=== PATIENT | female | born 1955 | race Hispanic/Latino ===

== ENCOUNTER → 2019-10-25 | Outpatient (CLI) | payer OTHER ==
[~2019-10-25] MED LIST: BUPROPION PO; FOLIC ACID PO; HYDROCODON-ACE1 EA12 PO; IBUPROFEN400 MG PO; LEVOTHYROXINE200 MCG PO; METHOTREXATE2.5 MG PO; OXYBUTYNIN CHLO15 MG PO; PREDNISONE5 MG PO
--- NOTE | 2019-10-25 16:03 | Diagnostic Imaging Report ---
EXAMINATION: CHEST 2 VIEWS INDICATION: Ptosis COMPARISON: None FINDINGS: LINES/TUBES:None LUNGS:The lungs are well-inflated. No focal consolidation or pulmonary edema. PLEURA:No pleural effusion or pneumothorax. MEDIASTINUM:The cardiomediastinal silhouette appears normal in size and shape. BONES/SOFT TISSUES:No acute osseous injury. ABDOMEN:No free air under the diaphragm. Surgical clips overlie the upper abdomen. IMPRESSION: No focal pneumonia or pulmonary edema. Signed by: Yasmani Albrecht MD on 10/25/2019 3:59 PM
== END ==
LOC: RAD 13:51
PROVIDERS: ATTEND Internal Medicine
DX: H02.402 Unspecified ptosis of left eyelid (principal)
CPT/HCPCS: 71046

== ENCOUNTER 2019-11-04 00:15 | Inpatient (IN) | payer OTHER ==
[2019-11-04] VITALS (7 sets, daily range): BP systolic 114–128; BP diastolic 50–76
[~2019-11-04] VITALS: Ht 165.1 cm; Wt 132.1 kg
[2019-11-04] MEDS ORDERED: SODIUM CHLORIDE 0.9% 1000ML 1,000 ML IV STA (00:20)
[2019-11-04] MEDS ORDERED: MORPHINE SULFATE INJ 4 MG/ML INJ 1ML IV STA (00:20)
[2019-11-04] MEDS ORDERED: ONDANSETRON HCL INJ 2MG/ML 2ML 2 MG/ML VIAL IV STA (00:20)
--- NOTE | 2019-11-04 00:25 | Emergency Department Note ---
History of Present Illnes History of Present Illness History of Present Illness This is a 64 year old female with week long h/o of abd pain . Seen in triage , slightly dyspneic Historian: Patient Onset (how long ago): week(s) (1) Radiation: Reports abdomen Severity: moderate Duration (how long): day(s) (1) Timing of current episode: constant Progression: worsening Chronicity: new Relieving factors: none Exacerbating factors: none Associated symptoms: Reports nausea/vomiting Treatments prior to arrival: none Past Medical/Family History Physician Review I have reviewed the patient's past medical and family history. Any updates have been documented here. Past Medical History Recent Fever: No Clinical Suspicion of Infectio: No New/Unexplained Change in Ment: No Past Medical History: Hypertension Past Surgical History: None Social History Smoking Cessation: Never Smoker Alcohol Use: None Any Illegal Drug Use: No Review of Systems Review of Systems Constitutional: Reports no symptoms EENTM: Reports no symptoms Cardiovascular: Reports no symptoms Respiratory: Reports dyspnea Gastrointestinal: Reports abdominal pain, Reports nausea Genitourinary: Reports no symptoms Musculoskeletal: Reports no symptoms Integumentary: Reports no symptoms Neurological: Reports no symptoms Psychological: Reports no symptoms Endocrine: Reports no symptoms Hematological/Lymphatic: Reports no symptoms Physical Exam Related Data Allergies: Coded Allergies: infliximab (Verified Allergy, Unknown, HIVES, 01/07/17) sulfamethoxazole (Verified Allergy, Unknown, TONGUE SWELLED, 01/07/17) trimethoprim (Verified Allergy, Unknown, TONGUE SWELLED, 01/07/17) Triage Vital Signs Vital Signs Date Time Temp Pulse Resp B/P (MAP) Pulse Ox O2 Delivery O2 Flow Rate FiO2 11/04/19 00:53 98.1 81 13 134/83 100 Room Air Vital signs reviewed: Yes Physical Exam CONSTITUTIONAL Constitutional: Present morbidly obese, Present ill appearing HENT HENT: Present normocephalic, Present atraumatic, Present oropharynx thomas r/moist, Present nose normal HENT L/R: Present left ext ear normal, Present right ext ear normal EYES Eyes: Reports PERRL, Reports conjunctivae normal NECK Neck: Present ROM normal PULMONARY Pulmonary: Present effort normal, Present breath sounds normal CARDIOVASCULAR Cardiovascular: Present regular rhythm, Present heart sounds normal, Present capillary refill normal, Present normal rate GASTROINTESTINAL Abdominal: Present soft, Present tender (LLQ) GENITOURINARY Genitourinary: Present exam deferred SKIN Skin: Present warm, Present dry MUSCULOSKELETAL Musculoskeletal: Present ROM normal NEUROLOGICAL Neurological: Present alert, Present oriented x 3, Present no gross motor or sensory deficits PSYCHOLOGICAL Psychological: Present mood/affect normal, Present judgement normal Results Laboratory Laboratory Laboratory Tests Test 11/04/19 20:10 11/04/19 15:20 Creatine Kinase 49 IU/L (29-168) 58 IU/L (29-168) Creatine Kinase MB 1.20 ng/mL (0-5.0) 1.30 ng/mL (0-5.0) Troponin I 0.001 ng/mL (0-0.300) 0.016 ng/mL (0-0.300) Lab results reviewed: Yes Imaging Imaging results reviewed: Yes Impressions [place] [address] Patient Name: LAURENCE HOGUE MR #: [id number] : 1955 Age/Sex: 64/F Req #: [id number] Adm Physician: Ordered by: MAURICIO GOMEZ DO Report #: [id number] Location: ER Room/Bed: Procedure: [id number] CT/CT CHEST W Exam Date: 11/04/19 Exam Time: 0320 REPORT STATUS: Signed EXAMINATION: CT of the chest with contrast, PE protocol. TECHNIQUE: Spiral CT images of the chest were performed from the lung apices through the level of the adrenal glands after the IV administration of 150 cc of Isovue-370. Thin section reconstructions were obtained with special concentration on the pulmonary arteries. Coronal and sagittal reformatted images were also performed COMPARISON: <none> CLINICAL HISTORY:Shortness of breath for one week DISCUSSION: Lungs: Multiple filling defects involving segmental arteries of the right upper (superior and posterior segments), right middle (medial and lateral segments) and right lower lobe (lateral and posterior basal segments). Lungs are essentially clear. No consolidation, masses or nodules. Airways are clear, without endobronchial lesions. Pleura: <There is no evidence of pleural effusion or pneumothorax.> Heart and mediastinum: Thyroid is unremarkable. Heart size is normal. No pericardial effusion. Aorta is nonaneurysmal. Main pulmonary artery measures 2.8 cm, normal. Lymph nodes: No mediastinal, hilar or axillary adenopathy. Abdomen: Please see CT abdomen and pelvis performed same date for further detail. Bones and soft tissues: No aggressive lytic or suspicious focal sclerotic lesion. Soft tissues are grossly unremarkable. IMPRESSION: 1. Multiple pulmonary emboli involving segmental arteries of the right upper, right middle and right lower lobe. 2. Lungs are essentially clear, without consolidation, masses or nodules. Signed by: Dr. Rome Angel M.D. on 11/04/2019 4:56 AM Dictated By: ROME ANGEL MD 5 Transcribed By: SEAN on 11/04/19455 COPY TO: MAURICIO GOMEZ DO~ [place] [address] Patient Name: LAURENCE HOGUE MR #: [id number] : 1955 Age/Sex: 64/F Req #: [id number] Adm Physician: Ordered by: MAURICIO GOMEZ DO Report #: [id number] Location: ER Room/Bed: Procedure: [id number] CT/CT ABDOMEN/PELVIS W Exam Date: 11/04/19 Exam Time: 0320 REPORT STATUS: Signed EXAMINATION: CT of the abdomen and pelvis with contrast. TECHNIQUE: Spiral CT images of the abdomen and pelvis were performed from the lung bases to the lesser trochanters after the intravenous administration of 100 cc of Isovue 370 and the oral administration of water. Coronal and sagittal reformatted images were obtained. COMPARISON: None. CLINICAL HISTORY:Left lower quadrant pain for one day DISCUSSION: ABDOMEN/PELVIS: LOWER THORAX:Please see CT chest performed same day for further details HEPATOBILIARY: No focal hepatic lesions No intra or extrahepatic biliary ductal dilation. GALLBLADDER: No radio-opaque stones or sludge. No wall thickening. 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 Fatty replacement of the pancreas. ADRENALS: No adrenal nodules. KIDNEYS/URETERS: Symmetrical renal enhancement. No renal or ureteral calculi. No hydronephrosis, hydroureter or evidence of obstruction. Well-circumscribed fluid density lesions in the left renal sinus likely represent peripelvic cysts. Moderate bilateral perinephric stranding and mild bilateral perinephric fluid. No definite cortical striations are identified. No solid or cystic lesions. PELVIC ORGANS/BLADDER: Bladder and uterus are unremarkable. No adnexal masses. PERITONEUM/RETROPERITONEUM: No free air or fluid. LYMPH NODES: No intra-abdominal, retroperitoneal, pelvic or inguinal lymphadenopathy. VESSELS: The celiac trunk,superior and inferior mesenteric and bilateral renal arteries are patent The portal, superior mesenteric and splenic veins are patent. GI TRACT: Small hiatal hernia. No bowel dilation or evidence of obstruction. No pericolonic inflammatory changes. BONES AND SOFT TISSUE: No aggressive lytic or suspicious sclerotic lesions. Multilevel degenerated disks in the lower thoracic and to a lesser degree upper lumbar spine. Soft tissues are grossly unremarkable. IMPRESSION: 1. Moderate bilateral perinephric stranding and mild bilateral perinephric fluid. Although no definite cortical striations are identified to suggest pyelonephritis, correlate with urinalysis for diarrhea and possibility of ascending infection. Signed by: Dr. Rome Angel M.D. on 11/04/2019 4:45 AM Dictated By: ROME ANGEL MD 4 Transcribed By: SEAN on 11/04/19444 COPY TO: MAURICIO GOMEZ DO~ Critical Care Time Total Critical Care Time (min): 31 Critcal care time spent by me: discussion w consultants, discussion w primary provider, examination of patient, order/perform tx or interventions, order/review laboratory studies, order/review radiographic studies, pulse oximetry, re-evaluation of patient condition Assessment & Plan Medical Decision Making MDM 64 yom with presents with abdominal pain. CBC, CMP, UA and CTS ordered to r/o appendicitis, COVID-19 infection diverticulitis, UTI, kidney stone, perforated viscus, obstruction, ischemia, and biliary pathology. Dyspnea concerning for PE which was confirmed by CTA of chest. Patient to admitted to the service of Dr Sarwat Thrasher Assessment & Plan Final Impression: (1) Pulmonary embolism (2) Abdominal pain Depart Disposition: ADMITTED Home Meds Reported Medications Lisinopril (LISINOPRIL) 10 Mg Tablet, 10 MG PO BID, #60 TAB 11/04/19 Meloxicam (MOBIC) 15 Mg Tablet, 15 MG PO DAILY, TAB 11/04/19 Duloxetine Hcl (CYMBALTA) 30 Mg Capsule.dr, 60 MG PO DAILY, #30 CAP 11/04/19 Gabapentin (GABAPENTIN) 300 Mg Capsule, 600 MG PO Q8H, #60 CAP 11/04/19 Tizanidine Hcl (TIZANIDINE HCL) 4 Mg Capsule, 4 MG PO HS 11/04/19 Folic Acid (FOLIC ACID) 0.8 Mg Tablet, 1 MG PO DAILY 11/04/19 Ibuprofen (IBUPROFEN) 400 Mg Tablet, 800 MG PO DAILY PRN for PAIN, TAB 01/07/17 Methotrexate Sodium (METHOTREXATE) 2.5 Mg Tablet, 20 MG PO WKLY, #30 TAB WEEKLY ON Sundays01/07/17 Levothyroxine Sodium (LEVOTHYROXINE SODIUM) 200 Mcg Tablet, 200 MCG PO DAILY@0600 01/07/17 Oxybutynin Chloride (OXYBUTYNIN CHLORIDE ER) 15 Mg Tab.er.24, 15 MG PO DAILY 01/07/17 Discontinued Reported Medications [Bupropion] No Conflict Check, PO DAILY PATIENT STATES UNKNOWN DOSAGE 01/07/17 Prednisone (PREDNISONE) 5 Mg Tablet, 5 MG PO DAILY 01/07/17 Hydrocodone Bit/Acetaminophen (HYDROCODON-ACETAMINOPH 7.5-325) 1 Each Tablet, PO PRN 01/07/17 [Folic Acid] No Conflict Check, 1 MG PO DAILY 01/07/17 MAURICIO GOMEZ DO Nov 04, 2019 00:25
[2019-11-04 02:20] LABS: BASOPHILS # (AUTO) 0.1 (0.0-0.1); BASOPHILS % 0.5 % (0.0-1.0); EOSINOPHILS # (AUTO) 0.6 (0.0-0.4); EOSINOPHILS % 3.3 % (0.0-6.0); HEMATOCRIT 41.8 % (34.2-44.1); HEMOGLOBIN 13.3 g/dL (12.0-16.0); LYMPHOCYTES # (AUTO) 2.4 (1.0-3.2); LYMPHOCYTES % 14.7 % (18.0-39.1); MEAN CORPUSCULAR HEMOGLOBIN 28.4 pg (28-32); MEAN CORPUSCULAR HGB CONC 31.8 g/dL (31-35); MEAN CORPUSCULAR VOLUME 89.1 fL (81-99); MONOCYTES # (AUTO) 1.9 (0.2-0.8); MONOCYTES % 11.2 % (4.4-11.3); NEUTROPHILS # (AUTO) 11.5 (2.1-6.9); NEUTROPHILS % 69.7 % (38.7-80.0); PLATELET COUNT 415 x10e3/uL (140-360); RED BLOOD COUNT 4.69 x10e6/uL (3.6-5.1); RED CELL DISTRIBUTION WIDTH 15.8 % (11.7-14.4)
[2019-11-04 02:28] LABS: CLARITY,URINE CLEAR (CLEAR); COLOR,URINE YELLOW (YELLOW)
[2019-11-04 02:29] LABS: BILIRUBIN,URINE NEGATIVE (NEGATIVE); KETONES,URINE NEGATIVE (NEGATIVE); LEUKOCYTE ESTERASE ,URINE NEGATIVE (NEGATIVE); NITRITE,URINE NEGATIVE (NEGATIVE); PROTEIN,URINE DIPSTICK 1+ (NEGATIVE); URINE UROBILINOGEN 0.2 mg/dL (0.2 - 1)
[2019-11-04 02:39] LABS: BACTERIA,URINE FEW /HPF
[2019-11-04 02:40] LABS: EPITHELIAL CELLS,URINE FEW /LPF
[2019-11-04 02:41] LABS: ALBUMIN 3.4 g/dL (3.5-5.0); ALBUMIN/GLOBULIN RATIO 0.8 (0.8-2.0); ANION GAP 15.1 mmol/L (8-16); CALCIUM 9.2 mg/dL (8.4-10.2); CREATININE, SERUM 1.18 mg/dL (0.57-1.11); POTASSIUM 4.1 mmol/L (3.5-5.1)
[2019-11-04] MEDS ORDERED: SODIUM CHLORIDE 0.9% 1000ML 1,000 ML ONE (03:21)
[2019-11-04] MEDS ORDERED: SODIUM CHLORIDE 0.9% 50ML 50 ML ONE ×2 (03:22→05:03)
[2019-11-04] MEDS ORDERED: IOPAMIDOL 370 MG/ML 200 ML INFUS..BTL INJ ONE ×2 (03:22→05:03)
--- NOTE | 2019-11-04 04:48 | Diagnostic Imaging Report ---
EXAMINATION: CT of the abdomen and pelvis with contrast. TECHNIQUE: Spiral CT images of the abdomen and pelvis were performed from the lung bases to the lesser trochanters after the intravenous administration of 100 cc of Isovue 370 and the oral administration of water. Coronal and sagittal reformatted images were obtained. COMPARISON: None. CLINICAL HISTORY:Left lower quadrant pain for one day DISCUSSION: ABDOMEN/PELVIS: LOWER THORAX:Please see CT chest performed same day for further details HEPATOBILIARY: No focal hepatic lesions No intra or extrahepatic biliary ductal dilation. GALLBLADDER: No radio-opaque stones or sludge. No wall thickening. 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 Fatty replacement of the pancreas. ADRENALS: No adrenal nodules. KIDNEYS/URETERS: Symmetrical renal enhancement. No renal or ureteral calculi. No hydronephrosis, hydroureter or evidence of obstruction. Well-circumscribed fluid density lesions in the left renal sinus likely represent peripelvic cysts. Moderate bilateral perinephric stranding and mild bilateral perinephric fluid. No definite cortical striations are identified. No solid or cystic lesions. PELVIC ORGANS/BLADDER: Bladder and uterus are unremarkable. No adnexal masses. PERITONEUM/RETROPERITONEUM: No free air or fluid. LYMPH NODES: No intra-abdominal, retroperitoneal, pelvic or inguinal lymphadenopathy. VESSELS: The celiac trunk,superior and inferior mesenteric and bilateral renal arteries are patent The portal, superior mesenteric and splenic veins are patent. GI TRACT: Small hiatal hernia. No bowel dilation or evidence of obstruction. No pericolonic inflammatory changes. BONES AND SOFT TISSUE: No aggressive lytic or suspicious sclerotic lesions. Multilevel degenerated disks in the lower thoracic and to a lesser degree upper lumbar spine. Soft tissues are grossly unremarkable. IMPRESSION: 1. Moderate bilateral perinephric stranding and mild bilateral perinephric fluid. Although no definite cortical striations are identified to suggest pyelonephritis, correlate with urinalysis for diarrhea and possibility of ascending infection. Signed by: Dr. Mathew Angel M.D. on 11/04/2019 4:45 AM
[2019-11-04] MEDS ORDERED: ENOXAPARIN SODIUM INJ 100 MG/ML SYR SC STA (04:52)
--- NOTE | 2019-11-04 04:59 | Diagnostic Imaging Report ---
EXAMINATION: CT of the chest with contrast, PE protocol. TECHNIQUE: Spiral CT images of the chest were performed from the lung apices through the level of the adrenal glands after the IV administration of 150 cc of Isovue-370. Thin section reconstructions were obtained with special concentration on the pulmonary arteries. Coronal and sagittal reformatted images were also performed COMPARISON: <none> CLINICAL HISTORY:Shortness of breath for one week DISCUSSION: Lungs: Multiple filling defects involving segmental arteries of the right upper (superior and posterior segments), right middle (medial and lateral segments) and right lower lobe (lateral and posterior basal segments). Lungs are essentially clear. No consolidation, masses or nodules. Airways are clear, without endobronchial lesions. Pleura: <There is no evidence of pleural effusion or pneumothorax.> Heart and mediastinum: Thyroid is unremarkable. Heart size is normal. No pericardial effusion. Aorta is nonaneurysmal. Main pulmonary artery measures 2.8 cm, normal. Lymph nodes: No mediastinal, hilar or axillary adenopathy. Abdomen: Please see CT abdomen and pelvis performed same date for further detail. Bones and soft tissues: No aggressive lytic or suspicious focal sclerotic lesion. Soft tissues are grossly unremarkable. IMPRESSION: 1. Multiple pulmonary emboli involving segmental arteries of the right upper, right middle and right lower lobe. 2. Lungs are essentially clear, without consolidation, masses or nodules. Signed by: Dr. Mathew Angel M.D. on 11/04/2019 4:56 AM
[2019-11-04] MEDS ORDERED: MORPHINE SULFATE INJ 4 MG/ML INJ 1ML IV PRN (05:00)
[2019-11-04] MEDS ORDERED: ONDANSETRON HCL INJ 2MG/ML 2ML 2 MG/ML VIAL IV PRN (05:00)
[2019-11-04] MEDS ORDERED: ASPIRIN 81 MG CHEW TAB PO ONE (05:00)
--- NOTE | 2019-11-04 06:36 | NUR ---
Received patient from ER. Patient received and offered a bed, patient in no acute distress, patient is currently stable, will continue to monitor.
[2019-11-04 06:50] LABS: CREATINE KINASE MB 1.4 ng/mL (0-5.0)
[2019-11-04] MEDS ORDERED: GABAPENTIN300 MG PO (07:23)
[2019-11-04] MEDS ORDERED: MOBIC15 MG PO (07:23)
[2019-11-04] MEDS ORDERED: FOLIC ACID0.8 MG PO (07:23)
[2019-11-04] MEDS ORDERED: CYMBALTA30 MG PO (07:23)
[2019-11-04] MEDS ORDERED: TIZANIDINE HCL4 M1 PO (07:23)
--- NOTE | 2019-11-04 07:30 | NUR ---
ADMITTED PATIENT FROM ER. SHE IS IN STABLE CONDITION. ORIENTED TO ROOM AND POLICIES. CALL LIGHT WITHIN REACH. BED IN THE LOWEST POSITION.
[2019-11-04] MEDS ORDERED: LISINOPRIL10 MG PO (07:34)
--- NOTE | 2019-11-04 07:49 | NUR ---
DR. Nirali SPRINGER NOTIFIED OF CONSULT AT THIS TIME.
[2019-11-04] MEDS ORDERED: SODIUM CHLORIDE 0.9% 250ML 250 ML ONE (10:36)
[2019-11-04] MEDS ORDERED: ACETAMINOPHEN 325 MG TAB PO PRN (10:45)
[2019-11-04] MEDS: DEXAMETHASONE SOD PHOS INJ 4 MG/ML VIAL IV SCH (11:24)
[2019-11-04] MEDS: FOLIC ACID 1 MG TAB PO SCH (11:24)
[2019-11-04] MEDS: AZITHROMYCIN 500MG/NS 250 ML 250 ML IV SCH (11:24)
--- NOTE | 2019-11-04 11:25 | NUR ---
MOVED PATIENT TO ROOM 200 (NEGATIVE PRESSURE ROOM) PER MD.
--- NOTE | 2019-11-04 11:38 | History and Physical ---
CHIEF COMPLAINT: Shortness of breath. HISTORY OF PRESENT ILLNESS: This is a 64-year-old woman, who presents to [facility] Emergency Room with a 4 to 5 day history of worsening shortness of breath, particularly when taking a deep breath. The patient denies any chest pain, just slight cough. She complains of chills. Denies any fever. She has slight headache. She also has body aches. The patient denies any diarrhea. The patient states she can still smell and taste food. The patient states she has not been exposed to anyone who is known to be COVID-19 positive. The patient blood work done recently at her primary care physician's office and her B-type natriuretic peptide level was normal at 39. She was found to have an elevated TSH level of 7.35. Her hemoglobin A1c was 5.8%. In [facility] Emergency Room, she was found have BUN and creatinine of 15 and 1.18 respectively. The patient's white blood cell count 16,500 with 69% segmenters. Hemoglobin 13.3 g/dL, platelet count 415,000. Urinalysis revealed 6-10 red blood cells per high-power field and 6-10 white blood cells per high-power field with few bacteria. The patient underwent a CT of the abdomen and pelvis in the emergency room that revealed moderate bilateral perinephric stranding, but no definite cortical striations were appreciated to suggest pyelonephritis. However, the patient underwent a CT of the chest in the emergency room that did reveal multiple pulmonary emboli involving the segmental arteries of the right upper, right middle and right lower lobes. The lungs however were clear of consolidations, masses or nodules. The patient was admitted for further evaluation and treatment. REVIEW OF SYSTEMS: GENERAL: Weight is stable. She has had chills in past five days. No fever. HEENT: Slight headaches, but no visual changes. Denies any sore throat. RESPIRATORY: Worsening shortness of breath over the last five days. She currently states that she has difficulty taking deep breath. The patient denies any chest pain though. She has slight nonproductive cough. GI: No nausea, vomiting, diarrhea or constipation. : No UTI symptoms. NEUROMUSCULAR: No limb weakness or numbness, but she does complain of body aches. ALLERGIES: 1. REMICADE. 2. SULFAMETHOXAZOLE. 3. BACTRIM. PAST MEDICAL HISTORY: 1. Extreme obesity, BMI 48. 2. Psoriatic arthritis. 3. Prediabetes. 4. GERD. 5. Hypothyroidism. 6. Overactive bladder. 7. Chronic right pedal edema. 8. Hypertensive heart disease. SOCIAL HISTORY: This woman is , lives with adult daughter. 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 No history of tobacco or alcohol use. SURGICAL HISTORY: 1. Lumbar epidural steroid injection recently. 2. 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 FAMILY HISTORY: Numerous family members have hypertension. Father had colon cancer. No history of breast cancer. HOME MEDICATIONS: 1. Furosemide 20 mg daily. 2. Omeprazole 40 mg daily. 3. Meloxicam 15 mg once a day. 4. Duloxetine 60 mg daily. 5. Gabapentin 300 mg t.i.d. 6. Tizanidine 4 mg q.h.s. 7. Levothyroxine 200 mcg every other day. 8. Diclofenac 1% gel applied to affected joints four times a day as needed. 9. Methotrexate 15 mg once a week. 10. Taltz 80 mg injectable every four weeks. 11. Myrbetriq 50 mg daily. 12. Folic acid 1 mg daily. 13. Lisinopril 10 mg daily. PHYSICAL EXAMINATION: GENERAL: She is awake, alert, fully oriented. She appears to be slightly dyspneic, but in no acute respiratory distress. She is fully oriented. Very pleasant, cooperative on exam. VITAL SIGNS: Height 5 feet 5 inches, weight 290 pounds. BMI is 48. Blood pressure is 124/74, pulse 74, respiratory rate 18, oxygen saturation 100% on room air, temperature 97.4. INTEGUMENT: Skin is warm and dry. No pallor, jaundice or diaphoresis. HEENT: Anterior sclerae. Moist mucous membranes. NECK: Supple. CARDIOVASCULAR: Distant heart sounds. Regular rate and rhythm. LUNGS: No rales. No rhonchi or wheezes. ABDOMEN: Obese, benign. EXTREMITIES: No edema or deformity. NEUROLOGIC: Intact. DIAGNOSES: 1. Right-sided pulmonary emboli. 2. COVID-19 infection, likely. 3. Extreme obesity, BMI 48. 4. Psoriatic arthritis. 5. Stage 2 chronic kidney disease. PLAN: 1. We will check COVID-19 infection by PCR testing (nasal swabbing). 2. Isolate the patient. 3. We will start oral apixaban. 4. Stop injectable enoxaparin. 5. Consult Pulmonary. 6. We will hold meloxicam and ibuprofen since patient has stage 2 chronic kidney disease and is now on anticoagulation. 7. We will start intravenous dexamethasone for shortness of breath and likely COVID-19 infection. 8. We will start intravenous azithromycin since patient most likely has COVID-19 infection. 9. We will resume home medications. I spent 45 minutes in the care of the patient. MD REJI Wynn/RENNY /[id number] MTDD
--- NOTE | 2019-11-04 12:27 | NUR ---
NOTIFIED DR. WHITMORE OF PATIENT GOING IN AND OUT OF A SECOND DEGREE HEART BLOCK FOR 4 BEATS AND THEN BACK TO SINUS RHYTHM PER TECHNOLOGY PROGRAM MANAGER. NO NEW ORDERS AT THIS TIME.
[2019-11-04] MEDS: GABAPENTIN 300 MG CAP PO SCH ×2 (13:04→21:21)
[2019-11-04] MEDS: ALBUTEROL SULF 0.083% NEB SOLN 3 ML NEB NEB SCH ×2 (14:22→19:35)
[2019-11-04 16:03] LABS: CREATINE KINASE MB 1.3 ng/mL (0-5.0)
[2019-11-04] MEDS: LISINOPRIL 10 MG TAB PO SCH (16:04)
[2019-11-04] MEDS: APIXABAN 5 MG TABLET PO SCH (16:04)
--- NOTE | 2019-11-04 17:01 | Consultation ---
DATE OF CONSULTATION: Pulmonary Critical Care Consultation CHIEF COMPLAINT: Dyspnea. HISTORY OF PRESENT ILLNESS: The patient is a 64-year-old woman. She has a history of psoriatic arthritis. She also has chronic back pain. She noticed swelling in her right leg intermittently for the past 1 to 2 months. She also went for an epidural injection the beginning of October. She noticed difficulty breathing about 7 to 10 days ago. She denies any cough or fevers. She has some pain with inspiration. She came to the hospital. Her CT scan showed multiple pulmonary emboli. She was started on anticoagulation and has noticed some improvement, although she still has some pain with respiration. PAST MEDICAL HISTORY: 1. Psoriatic arthritis. 2. Chronic back pain. 3. Hypertension. 4. Gastroesophageal reflux. ALLERGIES: THE PATIENT REPORTS BEING ALLERGIC TO BACTRIM. PAST SURGICAL HISTORY: 1. Status post splenectomy. 2. Status post epidural steroid injectio. SOCIAL HISTORY: The patient has never been a smoker. She is not a drinker. FAMILY HISTORY: There is a history of hypertension. There is a history of colon cancer. REVIEW OF SYSTEMS: The patient denies any fever. She has no headache. She has not had any neck pain. She denies any is glandular swelling. She is not having any anterior chest pain, although she does have pain with inspiration. She notes some dyspnea. She has no cough. She has no abdominal pain. She has no nausea or vomiting. She does have intermittent leg pain and swelling in the right leg. PHYSICAL EXAMINATION: VITAL SIGNS: The patient is afebrile. The blood pressure is 114/50 and the pulse rate is 81. Saturation is 96%. HEENT: Shows no facial swelling or erythema. CARDIAC: Reveals regular rate and rhythm with normal S1 and S2. LUNGS: Auscultation of lungs reveals clear breath sounds bilaterally. There is no wheezing. ABDOMEN: Soft and nontender. There is no rebound or guarding. EXTREMITIES: Shows no leg edema or calf tenderness. There is no cyanosis or clubbing. SKIN: Shows no rashes. NEUROLOGICAL: Shows no focal abnormalities. LABORATORY DATA: White blood cell count is 16.6, hemoglobin is 13.3, and the platelet count is 415. BUN to creatinine ratio is 15 to 1.18. Other electrolytes are within normal limits. Albumin is 3.4. RADIOGRAPHIC DATA: CT scan of the chest shows multiple pulmonary emboli involving segmental arteries in the right side predominantly. CT scan of the abdomen and pelvis shows moderate bilateral perinephric stranding. Echocardiogram shows no right ventricular abnormalities. There is a preserved ejection fraction and some concentric left ventricular hypertrophy. IMPRESSION: 1. Pulmonary emboli, possibly related to recent procedure (epidural steroid injection). 2. Acute kidney injury. 3. Psoriatic arthritis. 4. Hypertension. 5. Extreme obesity. PLAN: 1. The patient will require Eliquis for a minimum of 3 to 6 months. She should be on 10 mg twice a day for the first week and can then transition to 5 mg twice a day. 2. Await COVID testing, because the patient's with COVID are hypocoagulable and would be at risk for pulmonary embolism. 3. Follow up as an outpatient in 1 to 2 weeks to make sure the patient has had symptomatic improvement. 4. Repeat D-dimer at the end of treatment with anticoagulation. If the D-dimer remains elevated, then a workup for hypercoagulability would be indicated. Melvin Cespedes MD [facility] /[id number]
--- NOTE | 2019-11-04 18:45 | NUR ---
Received patient from day nurse, patient is stable, fall and safety precautions maintained at this time: bed in lowest position and locked, needed items beside bed and call piedra placed close to patient, patient instructed to use it to call nurses for any assistance needed, patient verbalized understanding. Patient is currently stable will continue to monitor.
--- NOTE | 2019-11-04 18:58 | NUR ---
BEDSIDE SHIFT REPORT GIVEN TO ONCOMING NURSE. PATIENT IS RESTING IN BED. NO ACUTE DISTRESS NOTED AT THIS TIME. CALL LIGHT WITHIN REACH. BED IN THE LOWEST POSITION.
[2019-11-04 20:40] LABS: CREATINE KINASE MB 1.2 ng/mL (0-5.0)
[2019-11-04] MEDS ORDERED: TIZANIDINE HCL 4 MG TAB PO SCH (21:00)
[2019-11-05] MEDS: ALBUTEROL SULF 0.083% NEB SOLN 3 ML NEB NEB SCH ×3 (00:55→14:02)
[2019-11-05 01:06] VITALS: BP_SYST 122; BP_SYST 128; BP_DIAS 72
[2019-11-05 04:00] VITALS: BP 134/86
[2019-11-05] MEDS ORDERED: LEVOTHYROXINE SODIUM 100 MCG TAB PO SCH (06:00)
[2019-11-05] MEDS: GABAPENTIN 300 MG CAP PO SCH ×2 (06:21→13:44)
[2019-11-05 06:31] LABS: BASOPHILS % 0.1 % (0.0-1.0); HEMATOCRIT 35.7 % (34.2-44.1); HEMOGLOBIN 11.3 g/dL (12.0-16.0); LYMPHOCYTES # (AUTO) 2.4 (1.0-3.2); LYMPHOCYTES % 17.8 % (18.0-39.1); MEAN CORPUSCULAR HEMOGLOBIN 28.7 pg (28-32); MEAN CORPUSCULAR HGB CONC 31.7 g/dL (31-35); MEAN CORPUSCULAR VOLUME 90.6 fL (81-99); MONOCYTES # (AUTO) 0.9 (0.2-0.8); NEUTROPHILS # (AUTO) 10.1 (2.1-6.9); NEUTROPHILS % 74.7 % (38.7-80.0); PLATELET COUNT 339 x10e3/uL (140-360); RED BLOOD COUNT 3.94 x10e6/uL (3.6-5.1); RED CELL DISTRIBUTION WIDTH 15.9 % (11.7-14.4)
--- NOTE | 2019-11-05 06:40 | NUR ---
RECEIVED BEDSIDE SHIFT REPORT FROM OFF GOING NURSE. PATIENT IS RESTING IN BED. NO ACUTE DISTRESS NOTED. CALL LIGHT WITHIN REACH. BED IN THE LOWEST POSITION.
[2019-11-05 06:57] LABS: ALBUMIN 2.8 g/dL (3.5-5.0); ALBUMIN/GLOBULIN RATIO 0.8 (0.8-2.0); ANION GAP 9.2 mmol/L (8-16); CALCIUM 8.3 mg/dL (8.4-10.2); CREATININE, SERUM 1.81 mg/dL (0.57-1.11); POTASSIUM 4.2 mmol/L (3.5-5.1)
--- NOTE | 2019-11-05 07:00 | NUR ---
patient endorsed to next shift for continuity of care.
[2019-11-05] MEDS ORDERED: SODIUM CHLORIDE 0.9% 1000ML 1,000 ML IV SCH (07:45)
[2019-11-05 08:31] VITALS: BP 109/54
[2019-11-05 08:51] VITALS: BP 109/54
--- NOTE | 2019-11-05 08:57 | Diagnostic Imaging Report ---
EXAM: CHEST SINGLE (PORTABLE) DATE: 11/05/2019 8:32 AM INDICATION: Possible pneumonia COMPARISON: CT chest with contrast from 11/04/2019 FINDINGS: The trachea is midline. The lungs are symmetrically expanded without evidence for large focal consolidation, pneumothorax, or significant pleural effusion. The cardiomediastinal is magnified by technique but otherwise unremarkable. The pulmonary vasculature is not engorged. No acute osseous abnormality is identified. The surrounding soft tissues are unremarkable. IMPRESSION: No acute cardiopulmonary process identified. Signed by: Dr. Danyel Noel MD on 11/05/2019 8:53 AM
[2019-11-05] MEDS ORDERED: DULOXETINE HCL 30 MG DELAYED RELEASE PO SCH (09:00)
[2019-11-05] MEDS ORDERED: OXYBUTYNIN CHLORIDE XL 5 MG TAB PO SCH (09:00)
[2019-11-05] MEDS: APIXABAN 5 MG TABLET PO SCH (09:05)
[2019-11-05] MEDS: FOLIC ACID 1 MG TAB PO SCH (09:05)
[2019-11-05] MEDS: LISINOPRIL 10 MG TAB PO SCH (09:05)
[2019-11-05] MEDS: DEXAMETHASONE SOD PHOS INJ 4 MG/ML VIAL IV SCH (09:30)
--- NOTE | 2019-11-05 10:14 | Discharge Summary ---
ADMITTING DIAGNOSES: 1. Right-sided pulmonary emboli. 2. Coronavirus disease-19, viral infection, likely. 3. Extreme obesity, BMI 48. 4. Psoriatic arthritis. 5. Stage 2 chronic kidney disease. DISCHARGE DIAGNOSES: 1. Right-sided pulmonary emboli, stable. 2. Coronavirus disease-19, viral infection, likely. 3. Extreme obesity, BMI 48. 4. Psoriatic arthritis. 5. Acute on chronic renal insufficiency secondary to intravenous contrast, stable. HOSPITAL COURSE: This is a 64-year-old woman, who was initially admitted to [facility] with diagnosis of right-sided pulmonary emboli as well as likely coronavirus disease-19 viral infection. However, on discharge the patient's COVID-19 test by PCR was still pending on day that she was discharged. The patient remained hemodynamically stable during hospitalization. The patient never became hypoxic. In fact, she never had shortness of breath. Her only real complaint was difficulty in taking a deep breath and right-sided pleuritic chest discomfort. On admission, the patient underwent a CT of the abdomen and pelvis, which revealed perinephric stranding, but no clear evidence of pyelonephritis. However, patient underwent a CT of the chest with intravenous contrast during this hospitalization that revealed multiple pulmonary emboli involving segmental arteries of the right upper, right middle and right lower lobes. The patient's brief hospitalization was unremarkable. She was seen by strip cutting machine operator, Dr. Melvin Cespedes. The patient was initially started on enoxaparin subcutaneously, but later was transitioned to oral apixaban, which she tolerated quite well. The patient was started on apixaban from Eliquis 10 mg twice a day. The following medications were discontinued during this hospitalization because of her acute on chronic renal insufficiency, namely ibuprofen, meloxicam, and lisinopril. Prior to discharge she was administered one liter of saline intravenously to help correct the likely intravenous contrast induced acute renal insufficiency. Basic metabolic profile was drawn prior to discharge. CONDITION ON DISCHARGE: Stable. DISCHARGE MEDICATIONS: 1. Apixaban from Eliquis 10 mg twice a day for seven more days, then 5 mg b.i.d. thereafter for at least three more months. 2. Oxybutynin XL 15 mg daily. 3. Folic acid 1 mg daily. 4. Duloxetine 60 mg daily. 5. Levothyroxine 200 mcg daily. 6. Gabapentin 600 mg t.i.d. 7. Tizanidine 4 mg at bedtime p.r.n. muscle spasms. 8. Azithromycin 500 mg daily for five days. 9. Dexamethasone 4 mg p.o. b.i.d. for five days (only if she is COVID-19 positive). 10. Zinc sulfate 220 mg b.i.d. for 10 days. 11. Acetaminophen 650 mg every 6 hours p.r.n. temperature 99.5 or higher, or pain. 12. Methotrexate 20 mg once a week on Sundays. The patient was instructed to follow up with her primary care physician, namely myself, Dr. Orion Thrasher within the next 7-10 days. I will personally call the patient with results of the COVID-19 viral tests once available. MD CHITO WynnO/RAMIROL /[id number] cc: Melvin Cespedes MD MTDD
[2019-11-05] MEDS: AZITHROMYCIN 500MG/NS 250 ML 250 ML IV SCH (10:38)
[2019-11-05 11:30] VITALS: BP 112/62
[2019-11-05] MEDS ORDERED: ONDANSETRON HCL 4 MG ORAL DISINTEGRATING TAB PO PRN (11:30)
--- NOTE | 2019-11-05 15:58 | NUR ---
RECEIVED DISCHARGE ORDER FROM DR. WHITMORE. PATIENT IS IN STABLE CONDITION. IV LINE TO LEFT ANTECUBITAL DISCONTINUED WITH TIP INTACT, PRESSURE DRESSING APPLIED TO SITE. DISCHARGE TEACHING PROVIDED, PATIENT VERBALIZED UNDERSTANDING, NO QUESTIONS AT THE TIME OF DISCHARGE. DC PAPERWORK WITH PRESCRIPTIONS AND ALL PERSONAL ITEMS ON HAND. PATIENT ACCOMPANIED TO PRIVATE AUTO VIA WHEELCHAIR BY STAFF.
[2019-11-05 16:14] LABS: ANION GAP 12.3 mmol/L (8-16); CALCIUM 8.8 mg/dL (8.4-10.2); CREATININE, SERUM 1.3 mg/dL (0.57-1.11); POTASSIUM 4.3 mmol/L (3.5-5.1)
[2019-11-07] MEDS ORDERED: METHOTREXATE SOD 2.5 MG TAB PO SCH (09:00)
== END 2019-11-05 15:58 | disposition home or self-care (01) | DRG 176 ==
LOC: ER 00:30 → ERHOLD 04:55 → MED/SURG2 06:33
PROVIDERS: ADMIT Internal Medicine; ATTEND Internal Medicine
DX: I26.99 Other pulmonary embolism without acute cor pulmonale (principal); N17.9 Acute kidney failure, unspecified; Z68.42 Body mass index [BMI] 45.0-49.9, adult; R10.9 Unspecified abdominal pain; Z88.8 Allergy status to other drugs, medicaments and biological substances; E66.01 Morbid (severe) obesity due to excess calories; L40.50 Arthropathic psoriasis, unspecified; I12.9 Hypertensive chronic kidney disease with stage 1 through stage 4 chronic kidney disease, or unspecified chronic kidney disease; N18.2 Chronic kidney disease, stage 2 (mild); R73.03 Prediabetes; E03.9 Hypothyroidism, unspecified; Z82.49 Family history of ischemic heart disease and other diseases of the circulatory system; Z80.0 Family history of malignant neoplasm of digestive organs; Z11.59 Encounter for screening for other viral diseases
CPT/HCPCS: 36415; 71045; 71260; 74177; 80048; 80053; 81001; 82550; 82553; 83690; 84484; 85025; 93306; 94640; 99284; J0456; J1100; J1650; J7030; J7050; Q9967; U0002

== ENCOUNTER 2019-11-20 17:39 | Emergency (ER) | payer OTHER ==
[~2019-11-20] VITALS: Ht 165.1 cm; Wt 145.1 kg
[~2019-11-20 17:39] MED LIST changes: +CYMBALTA30 MG PO; +FOLIC ACID0.8 MG PO; +GABAPENTIN300 MG PO; +LISINOPRIL10 MG PO; +MOBIC15 MG PO; +TIZANIDINE HCL4 M1 PO
[2019-11-20] MEDS ORDERED: SODIUM CHLORIDE 0.9% 1000ML 1,000 ML IV STA (18:01)
--- OUTSIDE RECORDS SUMMARY | 2019-11-20 18:10 | XMS REPORT | Clinical Summary ---
Author Author [facility] Address Unknown Phone Unavailable Care Team Providers Care Cinder Crusher Operator Name Role Phone Pcp, No PCP Unavailable Allergies Comments Active Allergy Reactions Severity Noted Date Sulfamethoxazole-Trimetho Anaphylaxis High 07/2017 prim Infliximab Hives 09/22/2017 Medications End Date Status Medication Sig Dispensed Refills Start Date Active buPROPion (WELLBUTRIN) Take 100 mg 0 100 MG tablet by mouth 2 (two) times daily. Active folic acid (FOLVITE) 1 MG Take 1 mg by 0 tablet mouth daily. Active HYDROcodone-acetaminophen Take 1 tablet 0 (NORCO 7.5-325) 7.5-325 by mouth mg per tablet every 6 (six) hours as needed for Pain. Active ibuprofen (ADVIL,MOTRIN) Take 600 mg 0 600 MG tablet by mouth every 6 (six) hours as needed for Pain. Active levothyroxine (SYNTHROID, Take 200 mcg 0 LEVOTHROID) 200 MCG by mouth tablet Every morning on an empty stomach. Active methotrexate 2.5 MG Take by mouth 0 tablet once a week. Active omeprazole-sodium Take 1 0 bicarbonate (ZEGERID) capsule by 40-1.1 mg-gram per mouth every capsule morning before breakfast. Active apremilast (OTEZLA) 30 mg Take 30 mg by 0 Tab mouth 2 (two) times daily. Active oxybutynin (DITROPAN XL) Take 15 mg by 0 15 MG 24 hr tablet mouth daily. Active predniSONE (DELTASONE) 5 Take 5 mg by 0 MG tablet mouth daily. Active ADALIMUMAB (HUMIRA SUBQ) Inject 0 subcutaneousl y. Active Problems Not on file Social History Date Tobacco Use Types Packs/Day Years Used Never Smoker Smokeless Tobacco: Never Used Alcohol Use Drinks/Week oz/Week Comments No Sex Assigned at Date Recorded Not on file Industry Job Start Date Occupation Not on file Not on file Not on file Travel End Travel History Travel Start No recent travel history available. Last Filed Vital Signs Not on file Plan of Treatment Not on file Results Not on fileafter 11/19/2018
--- OUTSIDE RECORDS SUMMARY | 2019-11-20 18:11 | XMS REPORT | Continuity of Care Document ---
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 Role Phone [employer] Unavailable Un available Problems Problem Status Onset Date Classification Date Reported Comments Source Lumbago Active Diagnosis 07/30/2019 Robert Collinser Allergic reaction caused by a drug Active Problem 05/2019 Robert Collinser Long-term use of high-risk medication Active Problem 05/2019 Robert Moreno Primary osteoarthritis involving multiple joints Active Problem 09/21/2019 Robert Tiffanie Other psoriasis Active Diagnosis 09/21/2019 Robert Moreno Body mass index (BMI) 45.0-49.9, adult Active Problem 05/2019 Robert Moreno Ankle pain, right Active Problem 09/21/2019 Robert Moreno Psoriatic arthritis Active Diagnosis 09/21/2019 Robert Moreno [facility] (current) use of opiate analgesic Active Problem 09/21/2019 Robert Moreno Chronic fatigue Active Problem 09/21/2019 Robert Moreno Obesity, unspecified Active Problem 03/27/2016 Robert Moreno Pain, back Active Problem 03/27/2016 Robert Moreno Psoriasis Active Problem 03/27/2016 Robert Moreno Psoriatic arthritis Active Problem 03/27/2016 Robert Moreno Postmenopausal status (age-related) Active Problem 10/2015 Robert Moreno Encounter for long-term (current) use of other high-risk medications Active Diag nosis 05/02/2016 Robert Moreno Osteoarthrosis generalized, unspecified site Active Problem 03/27/2016 Robert Moreno Osteoarthrosis, lower leg Acti ve Problem 10/2015 Robert Moreno Screening for osteoporosis Act renard Diagnosis 0 08/19/2017 Robert Moreno Unspecified inflammatory polyarthropathy Active Problem 11/08/2014 Robert Moreno Morbid (severe) obesity due to excess calories Active Problem 09/21/2019 Robert Moreno Vitamin D deficiency Active Problem 09/21/2019 Robert Moreno Autoimmune thyroiditis Active Problem 09/21/2019 Robert Moreno Vitamin B12 deficiency Active Diagnosis 12/19/2017 Robert Moreno Cough Active Diagnosis 04/28/2019 Robert Moreno Other chronic pain Active Problem 09/21/2019 Robert Moreno Medications Medication Details Route Status Patient Instructions Ordering Provider Order Date Source Clobetasol Propionate 1 applic ation to affected area Externally Active 0.05 % Externally Twice a day Wagner 02/23/2019 Robert Moreno Taltz 160 mg (2 x 80mg) week 0 then 80 mg week 2 4 6 8 10 and 12 then 80 mg every 4 weeks thereafter Subcutaneous Active 80 MG/ML Subcutaneous as directed [facility] 02/02/2019 Robert Moreno Prednisone Taper 3 tablets for 5 days, 2 tablets for 5 days and then 1 tablet for 5 days oral Active 5mg oral 1 tab tidx5d, 1 tab bidx5d, 1tab qdx5d [facility] 12/30/2018 Robert Moreno Motrin 1 tablet Orally Active 600 MG Orally Three nel es a day [facility] 09/09/2018 Robert Moreno Taltz 160 mg (2 x 80mg) week 0 then 80 mg week 2 4 6 8 10 and 12 then 80 mg every 4 weeks thereafter Subcutaneous Active 80 MG/ML Subcutaneous as directed Moreno 08/31/2018 Robert Moreno Taltz 160 mg (2 x 80mg) week 0 then 80 mg week 2 4 6 8 10 and 12 then 80 mg every 4 weeks thereafter Subcutaneous Active 80 MG/ML Subcutaneous as directed Singh 07/20/2018 Robert Moreno Diclofenac Sodium 2 pumps to a ffected area Transdermal Active 1 % Transdermal Three times a day [facility] 05/28/2018 Robert Moreno Pennsaid 2 pumps to affected a hannah Transdermal Active 2 % Transdermal Twice a day Singh 05/20/2018 Robert Moreno Methotrexate Sodium 0.8 cc SC Injection Active 25 MG/ML SC Injection once a week Moreno 05/20/2018 Robert Moreno Pennsaid 2 pumps to affected a hannah Transdermal Active 2 % Transdermal Twice a day Singh 05/14/2018 Robert Moreno Cosentyx Sensoready Pen 1 ml Subcutaneous Active 150 MG/ML Subcutaneous 2 injections once a week x5, then every 4 weeks Singh 04/16/2018 Robert Moreno Sure Comfort Insulin Syringe a s directed subcutaneously Active 28G X 1/2 subcutaneously Once a week wiht Methotrexate [facility] 03/19/2018 Robert Moreno Hydrocodone-Acetaminophen 1 ta blet as needed Orally Active 7.5- 325 MG Orally qid Singh 03/19/2018 Robert Moreno Methotrexate Sodium 0.8 cc SC Injection Active 25 MG/ML SC Injection once a week Singh 01/15/2018 Robertdimas Moreno Hydrocodone-Acetaminophen 1 ta blet as needed Orally Active 7.5- 325 MG Orally qid Singh 12/15/2017 Robert Moreno Hydrocodone-Acetaminophen 1 ta blet as needed Orally Active 7.5- 325 MG Orally qid Wagner 12/13/2017 Robert Moreno Humira Pen 0.8 ml Subcutaneous Active 40 MG/0.8ML Subcutaneou s Every two weeks Singh 08/29/2017 Robert Moreno Stelara 1 injection Subcutaneous Active 90 mg Subcutaneous ever y 12 weeks Singh 08/18/2017 Robert Moreno Hydrocodone-Acetaminophen 1 ta blet as needed Orally Active 7.5- 325 MG Orally qid Moreno 07/24/2017 Robert Moreno Otezla 1 tablet Orally Active 30 MG Orally Twice a da y Singh 06/24/2017 Robert Moreno Otezla 1 tablet Orally Active 30 MG Orally Twice a da y Singh 05/29/2017 Robert Moreno Pennsaid apply 40mg(2 pump act uations) to affected area twice daily Transdermal Active 2 % Transdermal Twice a day Singh 05/23/2017 Robert Moreno Methotrexate 8 tablets Orally Active 2.5mg Orally Once a wee k Singh 04/23/2017 Robert Moreno Hydrocodone-Acetaminophen 1 ta blet as needed Orally Active 7.5- 325 MG Orally tid Singh 03/21/2017 Robert Moreno Hydrocodone-Acetaminophen 1 ta blet as needed Orally Active 7.5- 325 MG Orally tid Singh 02/22/2017 Robert Moreno Pennsaid apply 40mg(2 pump act uations) to affected area twice daily Transdermal Active 2 % Transdermal Twice a day [facility] 01/29/2017 Robert Moreno Voltaren Gel apply 2g to 4g to affected area Transdermal Active 1% Transdermal Four times a day Singh 01/29/2017 Robert Moreno Hydrocodone-Acetaminophen 1 ta blet as needed Orally Active 7.5- 325 MG Orally tid Wagner 10/18/2016 Robert Moreno Stelara at 0, 4wks and then ev lisa 12wks Subcutaneous Active 90 MG/ML Subcutaneous Wagner 09/13/2016 Robert Moreno Hydrocodone-Acetaminophen 1 ta blet as needed Orally Active 7.5- 325 MG Orally tid Wagner 09/05/2016 Robert Moreno Remicade 7mg/kg Intravenous Active 100 MG Intravenous Wagner 09/04/2016 Robert Moreno Medrol Dose Vasyl as directed Orally Active 4mg Orally once a day Wagner 06/07/2016 Robert Moreno PredniSONE 1 tablet Orally Active 5 MG Orally Once a day Wagner 2016 Robert Moreno Clobetasol Propionate 1 applic ation to affected area Externally Active 0.05 % Externally Twice a day Wagner 05/03/2016 Robert Moreno Clobetasol Propionate 1 applic ation to affected area Externally Active 0.05 % Externally Twice a day Wagner 04/04/2016 Robert Moreno Hydrocodone-Acetaminophen 1 ta blet as needed Orally Active 7.5- 325 MG Orally every 8 hrs Singh 03/13/2016 Robert Moreno Cyanocobalamin 1 ml Injection Active 1000 MCG/ML Injection e very 2 weeks Wagner 02/12/2016 Robert Moreno Methotrexate 8 tablets Orally Active 2.5mg Orally Once a wee k Wagner 02/12/2016 Robert Moreno PredniSONE TAKE 1 TABLET ONCE A DAY Orally Active 5 MG Orally Once a day Moreno 02/05/2016 Robert Moreno Methotrexate 8 tablets Orally Active 2.5mg Orally Once a wee k Singh 11/25/2015 Robert Moreno Folic Acid 1 tablet Orally Active 1 MG Orally twice a day Singh 11/25/2015 Robert Moreno Hydrocodone-Acetaminophen 1 ta blet as needed Orally Active 7.5- 325 MG Orally every 8 hrs Singh 10/29/2015 Robert Moreno Hydrocodone-Acetaminophen 1 ta blet as needed Orally Active 7.5- 325 MG Orally every 6 hrs Singh 09/28/2015 Robert Moreno Hydrocodone-Acetaminophen 1 ta blet as needed Orally Active 7.5- 325 MG Orally TID Singh 07/28/2015 Robert Moreno Pennsaid 2 applications to aff ected area Transdermal Active 2 % Transdermal Twice a day Singh 06/29/2015 Robert Moreno Pennsaid 40 ggts topical No Longer Active 1.5% topical qid Moreno 06/29/2015 Robert Moreno Hydrocodone-Acetaminophen 1 ta blet as needed Orally Active 5-325 MG Orally every 6 hrs Wagner 06/28/2015 Robert Moreno Otezla 1 tablet Orally Active 30 MG Orally Twice a da y Wagner 05/29/2015 Robert Moreno Otezla as directed Orally Active 10 & 20 & 30 MG Orally Wagner 05/29/2015 Robert Moreno Enbrel SureClick 1 ml Subcutaneous No Longer Active 50 MG/ML Subcutaneous every week Wagner 02/16/2015 Robert Moreno Pennsaid 2 applications to aff ected area Transdermal Active 2 % Transdermal Twice a day Wagner 01/16/2015 Robert Moreno PredniSONE as directed Orally Active 5 MG Orally Once a day Wagner 12/02/2014 Robert Moreno Folic Acid 1 tablet Orally Active 1 MG Orally Twice a day Singh 07/25/2014 Robert Moreno Methotrexate 4 tablets Orally Active 2.5mg Orally Once a wee k Singh 07/25/2014 Robert Moreno Plaquenil 1 tablet with food o r milk Orally No Longer Active 200 MG Orally Twice a day Singh 06/27/2014 Robert Moreno Folic Acid 1 tablet Orally Active 1 MG Orally twice a day [place] Namita Moreno Levothyroxine Sodium 1 tablet on an empty stomach in the morning Orally Active 200mg Orally Once a day [place] Robert Moreno Clobetasol Propionate 1 applic ation to affected area Externally Active 0.05 % Externally Twice a day Singh Robert Moreno Oxybutynin Chloride as directed Orally Active 15 MG Orally Moreno Robert Moreno Motrin 1 tablet Orally Active 600 MG Orally Three nel es a day Singh Robert Moreno PredniSONE 1 tablet Orally Active 5 MG Orally Once a day Singh Phi desi Moreno Methotrexate 8 tablets Orally Active 2.5mg Orally Once a wee k Travis Robert Moreno Hydrocodone-Acetaminophen 1 ta blet as needed Orally Active 7.5- 325 MG Orally tid [place] Robert Moreno Pennsaid 2 applications to aff ected area Transdermal Active 2 % Transdermal Twice a day [place] Robert Moreno Levothyroxine Sodium 1 tablet on an empty stomach in the morning Orally Active 200mg Orally Once a day Wagner Robetr Moreno Stelara 1 injection Subcutaneous Active 90 mg Subcutaneous ever y 12 weeks Tiffanie Moreno Clobetasol Propionate 1 applic ation to affected area Externally Active 0.05 % Externally Twice a day Claudine Moreno Hydrocodone-Acetaminophen 1 ta blet as needed Orally Active 7.5- 325 MG Orally qid Claudine Moreno PredniSONE 1 tablet Orally Active 5 MG Orally Once a day Claudine Namita Moreno BuPROPion HCl 1 tablet Orally Active 75 MG Orally Once a day Claudine Namita Moreno Nabumetone 1 tablet Orally Active 500 MG Orally Twice a d ay Wagner Robert Moreno Otezla 1 tablet Orally Active 30 MG Orally Twice a da y Singhanna Moreno Oxybutynin Chloride as directed Orally Active 15 MG Orally once a day Travisniki Moreno Voltaren Gel apply 2g to 4g to affected area Transdermal Active 1% Transdermal Four times a day Francisco Moreno Folic Acid 1 tablet Orally Active 1 MG Orally twice a day Francisco Moreno Hydrocodone-Acetaminophen 1 ta blet as needed Orally Active 5-325 MG Orally every 6 hrs Wagner Robert Moreno Enbrel SureClick 1 ml Subcutaneous Active 50 MG/ML Subcutaneous Wagner Robert Moreno Methotrexate 8 tablets Orally Active 2.5mg Orally Once a wee k Wagner Robert Moreno PredniSONE TAKE 1 TABLET ONCE A DAY NA Active 5 MG Francisco Moreno Pennsaid 40 ggts topical Active 1.5% topical qid Singh Bandar Moreno Remicade as directed Intravenous Active 100 MG Intravenous Wagner Alverto Moreno Cyanocobalamin 1 ml Injection Active 1000 MCG/ML Injection e very 2 weeks Wagnerkim Moreno Methocarbamol 1 tablet Orally Active 750 MG Orally every 4 h rs Wagner Robert Moreno Triamterene-HCTZ 1 tablet in t he morning Orally Active 37.5-25 MG Orally Once a day Wagner Robert Moreno Motrin 1 tablet Orally Active 600 MG Orally Three nel es a day Wagner Moreno Taltz 160 mg (2 x 80mg) week 0 then 80 mg week 2 4 6 8 10 and 12 then 80 mg every 4 weeks thereafter Subcutaneous Active 80 MG/ML Subcutaneous as directed Claudine Moreno Ibuprofen 1 tablet with food o r milk as needed Orally Active 600 MG Orally Three times a day Claudine Moreno Methotrexate Sodium 0.8 cc SC Injection Active 25 MG/ML SC Injection once a week Claudine Moreno Cosentyx Sensoready 300 Dose 1 ml Subcutaneous Active 150 MG/ML Subcutaneous 2 injections every 4 weeks Francisco Moreno Levothyroxine Sodium 1 tablet on an empty stomach in the morning Orally Active 200mg Orally Once a day Claudine Moreno Pennsaid apply 40mg(2 pump act uations) to affected area twice daily Transdermal Active 2 % Transdermal Twice a day Francisco Moreno Methotrexate Sodium 0.8 cc SC Injection Active 25 MG/ML SC Injection once a week Nelson Moreno Levothyroxine Sodium 1 tablet on an empty stomach in the morning Orally Active 200mg Orally Once a day Nelson Moreno Oxybutynin Chloride as directed Orally Active 15 MG Orally once a day Damon Robert Moreno Oxybutynin Chloride as directed Orally Active 15 MG Orally once a day Claudine Robert Moreno Allergies, Adverse Reactions, Alerts Substance Category Reaction Severity Reaction type Status Date Reported Comments Source Remicade Adverse Reaction Info Not Available Adverse Reaction Active 12/30/2018 Robert Collinser Plaquenil Adverse Reaction GI upset, dizziness, ABBASI Adverse Reaction Active 12/30/2018 Robert Collinser Bactrim Adverse Reaction facial and tongue swelling Adverse Reaction Active 12/30/2018 Robert Moreno Otezla Adverse Reaction Info Not Available Adverse Reaction Active 12/30/2018 Robert Moreno Enbrel Adverse Reaction frequent infections Adverse Reaction Active 12/30/2018 Robert Moreno Stelara Adverse Reaction Info Not Available Adverse Reaction Active 12/30/2018 Robert Moreno Humira Adverse Reaction Info Not Available Adverse Reaction Active 12/30/2018 Robert Moreno Immunizations Immunization Date Given Site Status Last Updated Comments Source Vitamin B12 01/11/2016 completed Robert Moreno Depomedrol 07/31/2015 completed Robert Moreno Results No Data Provided for This Section Pathology Reports No Data Provided for This Section Diagnostic Reports No Data Provided for This Section Consultation Notes No Data Provided for This Section Discharge Summaries No Data Provided for This Section History and Physicals No Data Provided for This Section Vital Signs Vital Sign Value Date Comments Source Weight 272.4 04/05/2019 Robert Moreno Height 62 1 06/06/2018 Robert Moreno Temperature Oral (F) 98.0 F 04/05/2019 Robert Moreno Heart Rate 76 04/05/2019 Robert Moreno Diastolic (mm Hg) 76 04/05/2019 Robert Moreno Systolic (mm Hg) 110 04/05/2019 Robert Moreno Weight 280 03/04/2019 Robert Moreno Height 62 1 05/04/2018 Robert Moreno Temperature Oral (F) 99.1 F 03/04/2019 Robert Moreno Heart Rate 76 03/04/2019 Robert Moreno Diastolic (mm Hg) 80 03/04/2019 Robert Moreno Systolic (mm Hg) 142 03/04/2019 Robert Moreno Weight 278.4 02/04/2019 Robert Moreno Height 61 1 Robert Moreno Temperature Oral (F) 98.1 F 02/04/2019 Robert Moreno Heart Rate 72 02/04/2019 Robert Moreno Diastolic (mm Hg) 88 02/04/2019 Robert Moreno Systolic (mm Hg) 124 02/04/2019 Robert Moreno Weight 277.1 12/30/2018 Robert Moreno Height 61 0 12/30/2018 Robert Moreno Temperature Oral (F) 98.5 F 12/30/2018 Robert Moreno Heart Rate 60 12/30/2018 Robert Moreno Diastolic (mm Hg) 76 12/30/2018 Robert Moreno Systolic (mm Hg) 118 12/30/2018 Robert Moreno Weight 277.6 10/26/2018 Robert Moreno Height 61 0 10/26/2018 Robert Moreno Temperature Oral (F) 97.8 F 10/26/2018 Robert Moreno Heart Rate 64 10/26/2018 Robert Moreno Diastolic (mm Hg) 82 10/26/2018 Robert Moreno Systolic (mm Hg) 118 10/26/2018 Robert Moreno Weight 276.4 09/09/2018 Robert Moreno Height 62 0 09/09/2018 Robert Moreno Temperature Oral (F) 98 F 09/09/2018 Robert Moreno Heart Rate 80 09/09/2018 Robert Moreno Diastolic (mm Hg) 90 09/09/2018 Robert Moreno Systolic (mm Hg) 132 09/09/2018 Robert Moreno Weight 275 07/20/2018 Robert Moreno Height 62 0 07/20/2018 Robert Moreno Temperature Oral (F) 98.0 F 07/20/2018 Robert Moreno Heart Rate 72 07/20/2018 Robert Moreno Diastolic (mm Hg) 72 07/20/2018 Robert Moreno Systolic (mm Hg) 130 07/20/2018 Robert Moreno Weight 272.6 06/17/2018 Robert Moreno Height 62 0 06/17/2018 Robert Moreno Temperature Oral (F) 98.2 F 06/17/2018 Robert Moreno Heart Rate 74 06/17/2018 Robert Moreno Diastolic (mm Hg) 78 06/17/2018 Robert Moreno Systolic (mm Hg) 128 06/17/2018 Robert Moreno Weight 271 05/14/2018 Robert Moreno Height 62 0 05/14/2018 Robert Moreno Temperature Oral (F) 97.7 F 05/14/2018 Robert Moreno Heart Rate 72 05/14/2018 Robert Moreno Diastolic (mm Hg) 80 05/14/2018 Robert Moreno Systolic (mm Hg) 110 05/14/2018 Robert Moreno Weight 273.2 04/16/2018 Robert Moreno Height 63 1 06/17/2017 Robert Moreno Temperature Oral (F) 97.0 F 04/16/2018 Robert Moreno Heart Rate 76 04/16/2018 Robert Moreno Diastolic (mm Hg) 62 04/16/2018 Robert Moreno Systolic (mm Hg) 138 04/16/2018 Robert Moreno Weight 278 03/19/2018 Robert Moreno Height 62 1 05/19/2017 Robert Moreno Temperature Oral (F) 98.1 F 03/19/2018 Robert Moreno Heart Rate 76 03/19/2018 Robert Moreno Diastolic (mm Hg) 68 03/19/2018 Robert Moreno Systolic (mm Hg) 110 03/19/2018 Robert Moreno Weight 284.4 01/15/2018 Robert Moreno Height 62 0 01/15/2018 Robert Moreno Temperature Oral (F) 97.8 F 01/15/2018 Robert Moreno Heart Rate 74 01/15/2018 Robert Moreno Diastolic (mm Hg) 78 01/15/2018 Robert Moreno Systolic (mm Hg) 128 01/15/2018 Robert Moreno Weight 285.4 12/15/2017 Robert Moreno Height 62 0 12/15/2017 Robert Moreno Temperature Oral (F) 96.7 F 12/15/2017 Robert Moreno Heart Rate 76 12/15/2017 Robert Moreno Diastolic (mm Hg) 80 12/15/2017 Robert Moreno Systolic (mm Hg) 132 12/15/2017 Robert Moreno Weight 283.8 11/13/2017 Robert Moreno Height 62 0 11/13/2017 Robert Moreno Temperature Oral (F) 97.6 F 11/13/2017 Robert Moreno Heart Rate 78 11/13/2017 Robert Moreno Diastolic (mm Hg) 82 11/13/2017 Robert Moreno Systolic (mm Hg) 122 11/13/2017 Robert Moreno Weight 285 09/25/2017 Robert Moreno Height 62 0 09/25/2017 Robert Moreno Temperature Oral (F) 97.4 F 09/25/2017 Robert Moreno Heart Rate 78 09/25/2017 Robert Moreno Diastolic (mm Hg) 84 09/25/2017 Robert Moreno Systolic (mm Hg) 124 09/25/2017 Robert Moreno Weight 281 08/25/2017 Robert Moreno Height 62 0 08/25/2017 Robert Moreno Temperature Oral (F) 98.2 F 08/25/2017 Robert Moreno Heart Rate 80 08/25/2017 Robert Moreno Diastolic (mm Hg) 84 08/25/2017 Robert Moreno Systolic (mm Hg) 110 08/25/2017 Robert Moreno Weight 281.6 07/24/2017 Robert Moreno Height 63.5 07/24/2017 Robert Moreno Temperature Oral (F) 97.2 F 07/24/2017 Robert Moreno Heart Rate 74 07/24/2017 Robert Moreno Diastolic (mm Hg) 72 07/24/2017 Robert Moreno Systolic (mm Hg) 126 07/24/2017 Robert Moreno Weight 280 06/24/2017 Robert Moreno Height 63 0 06/24/2017 Robert Moreno Temperature Oral (F) 97.5 F 06/24/2017 Robert Moreno Heart Rate 78 06/24/2017 Robert Moreno Diastolic (mm Hg) 80 06/24/2017 Robert Moreno Systolic (mm Hg) 128 06/24/2017 Robert Moreno Weight 276 05/29/2017 Robert Moreno Height 63 0 05/29/2017 Robert Moreno Temperature Oral (F) 97.6 F 05/29/2017 Robert Moreno Heart Rate 82 05/29/2017 Robert Moreno Diastolic (mm Hg) 64 05/29/2017 Robert Moreno Systolic (mm Hg) 114 05/29/2017 Robert Moreno Weight 277 05/19/2017 Robert Moreno Height 63 0 05/19/2017 Robert Moreno Temperature Oral (F) 98.3 F 05/19/2017 Robert Moreno Heart Rate 80 05/19/2017 Robert Moreno Diastolic (mm Hg) 70 05/19/2017 Robert Moreno Systolic (mm Hg) 108 05/19/2017 Robert Moreno Weight 277 04/17/2017 Robert Moreno Height 63 1 06/18/2016 Robert Moreno Temperature Oral (F) 98.1 F 04/17/2017 Robert Moreno Heart Rate 72 04/17/2017 Robert Moreno Diastolic (mm Hg) 82 04/17/2017 Robert Moreno Systolic (mm Hg) 132 04/17/2017 Robert Moreno Weight 272 03/20/2017 Robert Moreno Height 63 1 05/20/2016 Robert Moreno Temperature Oral (F) 97.4 F 03/20/2017 Robert Moreno Heart Rate 74 03/20/2017 Robert Moreno Diastolic (mm Hg) 74 03/20/2017 Robert Moreno Systolic (mm Hg) 112 03/20/2017 Robert Moreno Weight 268.8 02/19/2017 Robert Moreno Height 63 1 04/21/2016 Robert Moreno Temperature Oral (F) 97.4 F 02/19/2017 Robert Moreno Heart Rate 70 02/19/2017 Robert Moreno Diastolic (mm Hg) 80 02/19/2017 Robert Moreno Systolic (mm Hg) 110 02/19/2017 Robert Moreno Weight 274 01/23/2017 Robert Moreno Height 62 1 Robert Moreno Temperature Oral (F) 98.1 F 01/23/2017 Robert Moreno Heart Rate 64 01/23/2017 Robert Moreno Diastolic (mm Hg) 68 01/23/2017 Robert Moreno Systolic (mm Hg) 110 01/23/2017 Robert Moreno Weight 267.1 12/26/2016 Robert Moreno Height 63 0 12/26/2016 Robert Moreno Temperature Oral (F) 97.8 F 12/26/2016 Robert Moreno Heart Rate 68 12/26/2016 Robert Moreno Diastolic (mm Hg) 80 12/26/2016 Robert Moreno Systolic (mm Hg) 110 12/26/2016 Robert Moreno Weight 275 11/18/2016 Robert Moreno Height 62.2 11/18/2016 Robert Moreno Temperature Oral (F) 97.2 F 11/18/2016 Robert Moreno Heart Rate 80 11/18/2016 Robert Moreno Diastolic (mm Hg) 84 11/18/2016 Robert Moreno Systolic (mm Hg) 128 11/18/2016 Robert Moreno Weight 267 10/17/2016 Robert Moreno Height 63 0 10/17/2016 Robert Moreno Temperature Oral (F) 97.3 F 10/17/2016 Robert Moreno Heart Rate 72 10/17/2016 Robert Moreno Diastolic (mm Hg) 80 10/17/2016 Robert Moreno Systolic (mm Hg) 100 10/17/2016 Robert Moreno Weight 265 09/18/2016 Robert Moreno Height 62 0 09/18/2016 Robert Moreno Temperature Oral (F) 97.8 F 09/18/2016 Robert Moreno Heart Rate 76 09/18/2016 Robert Moreno Diastolic (mm Hg) 72 09/18/2016 Robert Moreno Systolic (mm Hg) 104 09/18/2016 Robert Moreno Weight 262 09/13/2016 Robert Moreno Height 62 0 09/13/2016 Robert Moreno Temperature Oral (F) 97.9 F 09/13/2016 Robert Moreno Heart Rate 80 09/13/2016 Robert Moreno Diastolic (mm Hg) 80 09/13/2016 Robert Moreno Systolic (mm Hg) 110 09/13/2016 Robert Moreno Weight 263 09/04/2016 Robert Moreno Height 62 0 09/04/2016 Robert Moreno Temperature Oral (F) 98.0 F 09/04/2016 Robert Moreno Heart Rate 73 09/04/2016 Robert Moreno Diastolic (mm Hg) 74 09/04/2016 Robert Moreno Systolic (mm Hg) 160 09/04/2016 Robert Moreno Weight 262.2 08/05/2016 Robert Moreno Height 62 0 08/05/2016 Robert Moreno Temperature Oral (F) 98.6 F 08/05/2016 Robert Morneo Heart Rate 74 08/05/2016 Robert Moreno Diastolic (mm Hg) 80 08/05/2016 Robert Moreno Systolic (mm Hg) 114 08/05/2016 Robert Moreno Weight 261.8 07/03/2016 Robert Moreno Height 62 0 07/03/2016 Robert Moreno Temperature Oral (F) 98.8 F 07/03/2016 Robert Moreno Heart Rate 72 07/03/2016 Robert Moreno Diastolic (mm Hg) 80 07/03/2016 Robert Moreno Systolic (mm Hg) 122 07/03/2016 Robert Moreno Weight 258 06/03/2016 Robert Moreno Height 63 0 06/03/2016 Robert Moreno Temperature Oral (F) 97.4 F 06/03/2016 Robert Moreno Heart Rate 76 06/03/2016 Robert Moreno Diastolic (mm Hg) 78 06/03/2016 Robert Moreno Systolic (mm Hg) 122 06/03/2016 Robert Moreno Weight 271 05/03/2016 Robert Moreno Height 63 0 05/03/2016 Robert Moreno Temperature Oral (F) 98.0 F 05/03/2016 Robert Moreno Heart Rate 70 05/03/2016 Robert Moreno Diastolic (mm Hg) 85 05/03/2016 Robert Moreno Systolic (mm Hg) 128 05/03/2016 Robert Moreno Weight 271 04/04/2016 Robert Moreno Height 63 1 06/05/2015 Robert Moreno Temperature Oral (F) 98.7 F 04/04/2016 Robert Moreno Heart Rate 88 04/04/2016 Robert Moreno Diastolic (mm Hg) 72 04/04/2016 Robert Moreno Systolic (mm Hg) 124 04/04/2016 Robert Moreno Weight 266 03/08/2016 Robert Moreno Height 63 1 05/08/2015 Robert Moreno Temperature Oral (F) 98.2 F 03/08/2016 Robert Moreno Heart Rate 73 03/08/2016 Robert Moreno Diastolic (mm Hg) 102 03/08/2016 Robert Moreno Systolic (mm Hg) 142 03/08/2016 Robert Moreno Weight 268 02/12/2016 Robert Moreno Height 63 1 Robert Moreno Temperature Oral (F) 98.3 F 02/12/2016 Robert Moreno Heart Rate 72 02/12/2016 Robert Moreno Diastolic (mm Hg) 80 02/12/2016 Robert Mroeno Systolic (mm Hg) 122 02/12/2016 Robert Moreno Weight 258 01/11/2016 Robert Moreno Height 62 0 01/11/2016 Robert Moreno Temperature Oral (F) 98.0 F 01/11/2016 Robert Moreno Heart Rate 78 01/11/2016 Robert Moreno Diastolic (mm Hg) 72 01/11/2016 Robert Moreno Systolic (mm Hg) 126 01/11/2016 Robert Moreno Weight 273 12/11/2015 Robert Moreno Height 62 0 12/11/2015 Robert Moreno Temperature Oral (F) 97.4 F 12/11/2015 Robert Moreno Heart Rate 76 12/11/2015 Robert Moreno Diastolic (mm Hg) 72 12/11/2015 Robert Moreno Systolic (mm Hg) 124 12/11/2015 Robert Moreno Weight 274 11/08/2015 Robert Moreno Height 62 0 11/08/2015 Robert Moreno Temperature Oral (F) 98.3 F 11/08/2015 Robert Moreno Diastolic (mm Hg) 76 11/08/2015 Robert Moreno Systolic (mm Hg) 122 11/08/2015 Robert Moreno Weight 266.8 08/29/2015 Robert Moreno Height 62.5 08/29/2015 Robert Moreno Temperature Oral (F) 98.8 F 08/29/2015 Robert Moreno Heart Rate 80 08/29/2015 Robert Moreno Diastolic (mm Hg) 80 08/29/2015 Robert Moreno Systolic (mm Hg) 118 08/29/2015 Robert Moreno Weight 271 07/31/2015 Robert Moreno Height 63 0 07/31/2015 Robert Moreno Temperature Oral (F) 97.3 F 07/31/2015 Robert Moreno Heart Rate 74 07/31/2015 Robert Moreno Diastolic (mm Hg) 80 07/31/2015 Robert Moreno Systolic (mm Hg) 120 07/31/2015 Robert Moreno Weight 273 06/28/2015 Robert Moreno Height 63 0 06/28/2015 Robert Moreno Temperature Oral (F) 98.9 F 06/28/2015 Robert Moreno Heart Rate 76 06/28/2015 Robert Moreno Diastolic (mm Hg) 84 06/28/2015 Robert Moreno Systolic (mm Hg) 124 06/28/2015 Robert Moreno Weight 276 05/29/2015 Robert Moreno Height 63 0 05/29/2015 Robert Moreno Temperature Oral (F) 97.7 F 05/29/2015 Robert Moreno Heart Rate 80 05/29/2015 Robert Moreno Diastolic (mm Hg) 80 05/29/2015 Robert Moreno Systolic (mm Hg) 110 05/29/2015 Robert Moreno Weight 274 03/21/2015 Robert Moreno Height 63 1 05/22/2014 Robert Moreno Temperature Oral (F) 98.0 F 03/21/2015 Robert Moreno Heart Rate 74 03/21/2015 Robert Moreno Diastolic (mm Hg) 83 03/21/2015 Robert Moreno Systolic (mm Hg) 123 03/21/2015 Robert Moreno Weight 270 02/16/2015 Robert Moreno Height 63 1 Robert Moreno Temperature Oral (F) 98.3 F 02/16/2015 Robert Moreno Heart Rate 78 02/16/2015 Robert Moreno Diastolic (mm Hg) 84 02/16/2015 Robert Moreno Systolic (mm Hg) 124 02/16/2015 Robert Moreno Weight 263 08/22/2014 Robert Moreno Height 63 0 08/22/2014 Robert Moreno Temperature Oral (F) 97.6 F 08/22/2014 Robert Moreno Heart Rate 76 08/22/2014 Robert Moreno Diastolic (mm Hg) 62 08/22/2014 Robert Moreno Systolic (mm Hg) 126 08/22/2014 Robert Moreno Weight 262 07/25/2014 Robert Moreno Height 63 0 07/25/2014 Robert Moreno Temperature Oral (F) 97.4 F 07/25/2014 Robert Moreno Heart Rate 76 07/25/2014 Robert Moreno Diastolic (mm Hg) 76 07/25/2014 Robert Moreno Systolic (mm Hg) 124 07/25/2014 Robert Moreno Encounters Location Location Details Encounter Type Encounter Number Reason For Visit Attending Provider ADM Date DC Date Status Source Jorid Moreno MD dexa [id number] 02/18/2014 02/18/2014 Robert Moreno MD dexa [id number] 02/18/2014 02/18/2014 Robert Moreno MD dexa [id number] 02/18/2014 02/18/2014 Robert Moreno MD dexa [id number] 02/18/2014 02/18/2014 Robert Moreno MD dexa [id number] 02/18/2014 02/18/2014 Robert Moreno MD dexa [id number] 02/18/2014 02/18/2014 Robert Moreno MD dexa [id number] 02/18/2014 02/18/2014 Robert Moreno MD dexa [id number] 02/18/2014 02/18/2014 Robert Moreno MD dexa [id number] 02/18/2014 02/18/2014 Robert Moreno MD dexa [id number] 02/18/2014 02/18/2014 Robert Moreno MD dexa [id number] 02/18/2014 02/18/2014 Robert Moreno MD dexa [id number] 02/18/2014 02/18/2014 Robert Moreno MD dexa [id number] 02/18/2014 02/18/2014 Robert Moreno MD dexa [id number] 02/18/2014 02/18/2014 Robert Moreno MD dexa [id number] 02/18/2014 02/18/2014 Robert Moreno MD dexa [id number] 02/18/2014 02/18/2014 Robert Moreno MD dexa [id number] 02/18/2014 02/18/2014 Robert Moreno MD dexa [id number] 02/18/2014 02/18/2014 Robert Moreno MD dexa [id number] 02/18/2014 02/18/2014 Robert Moreno MD dexa [id number] 02/18/2014 02/18/2014 Robert Moreno MD dexa [id number] 02/18/2014 02/18/2014 Robert Moreno MD dexa [id number] 02/18/2014 02/18/2014 Robert Moreno MD dexa [id number] 02/18/2014 02/18/2014 Robert Moreno MD dexa [id number] 02/18/2014 02/18/2014 Robert Moreno MD dexa [id number] 02/18/2014 02/18/2014 Robert Moreno MD dexa [id number] 02/18/2014 02/18/2014 Robert Moreno MD dexa [id number] 02/18/2014 02/18/2014 Robert Moreno MD dexa [id number] 02/18/2014 02/18/2014 Robert Moreno MD dexa [id number] 02/18/2014 02/18/2014 Robert Moreno MD dexa [id number] 02/18/2014 02/18/2014 Robert Moreno MD dexa [id number] 02/18/2014 02/18/2014 Robert Moreno MD dexa [id number] 02/18/2014 02/18/2014 Robert Moreno MD dexa [id number] 02/18/2014 02/18/2014 Robert Moreno MD dexa [id number] 02/18/2014 02/18/2014 Robert Moreno MD dexa [id number] 02/18/2014 02/18/2014 Robert Moreno MD dexa [id number] 02/18/2014 02/18/2014 Robert Moreno MD dexa [id number] 02/18/2014 02/18/2014 Robert Moreno MD dexa [id number] 02/18/2014 02/18/2014 Robert Moreno MD dexa [id number] 02/18/2014 02/18/2014 Robert Moreno MD Unknown [id number] 02/23/20 14 02/22/2014 Robert Moreno MD Unknown [id number] 02/23/20 14 02/22/2014 Robert Moreno MD Unknown [id number] 02/23/20 14 02/22/2014 Robert Moreno MD Unknown [id number] 02/23/20 14 02/22/2014 Robert Moreno MD Unknown [id number] 02/23/20 14 02/22/2014 Robert Moreno MD Unknown [id number] 02/23/20 14 02/22/2014 Robert Moreno MD Unknown [id number] 02/23/20 14 02/22/2014 Robert Moreno MD Unknown [id number] 02/23/20 14 02/22/2014 Robert Moreno MD Unknown [id number] 02/23/20 14 02/22/2014 Robert Moreno MD Unknown [id number] 02/23/20 14 02/22/2014 Robert Moreno MD Unknown [id number] 02/23/20 14 02/22/2014 Robert Moreno MD Unknown [id number] 02/23/20 14 02/22/2014 Robert Moreno MD Unknown [id number] 02/23/20 14 02/22/2014 Robert Moreno MD Unknown [id number] 02/23/20 14 02/22/2014 Robert Moreno MD Unknown [id number] 02/23/20 14 02/22/2014 Robert Moreno MD Unknown [id number] 02/23/20 14 02/22/2014 Robert Moreno MD Unknown [id number] 02/23/20 14 02/22/2014 Robert Morneo MD Unknown [id number] 02/23/20 14 02/22/2014 Robert Moreno MD Unknown [id number] 02/23/20 14 02/22/2014 Robert Moreno MD Unknown [id number] 02/23/20 14 02/22/2014 Robert Moreno MD Unknown [id number] 02/23/20 14 02/22/2014 Robert Moreno MD Unknown [id number] 02/23/20 14 02/22/2014 Robert Moreno MD Unknown [id number] 02/23/20 14 02/22/2014 Robert Moreno MD Unknown [id number] 02/23/20 14 02/22/2014 Robert Moreno MD Unknown [id number] 02/23/20 14 02/22/2014 Rboert Moreno MD Unknown [id number] 02/23/20 14 02/22/2014 Robert Moreno MD Unknown [id number] 02/23/20 14 02/22/2014 Robert Moreno MD Unknown [id number] 02/23/20 14 02/22/2014 Robert Moreno MD Unknown [id number] 02/23/20 14 02/22/2014 Robert Moreno MD Unknown [id number] 02/23/20 14 02/22/2014 Robert Moreno MD Unknown [id number] 02/23/20 14 02/22/2014 Robert Moreno MD Unknown [id number] 02/23/20 14 02/22/2014 Robert Moreno MD Unknown [id number] 02/23/20 14 02/22/2014 Robert Moreno MD Unknown [id number] 02/23/20 14 02/22/2014 Robert Moreno MD Unknown [id number] 02/23/20 14 02/22/2014 Robert Moreno MD Unknown [id number] 02/23/20 14 02/22/2014 Robert Moreno MD Unknown [id number] 02/23/20 14 02/22/2014 Robert Moreno MD Unknown [id number] 02/23/20 14 02/22/2014 Robert Moreno MD f/u [id number]-[id number] 05/30/19 15 05/30/2014 Robert Moreno MD f/u [id number] 05/30/19 15 05/30/2014 Robert Moreno MD f/u 4hh8fk75-5584-2784-n61f-x685lyq7580s 05/30/19 15 05/30/2014 Robert Moreno MD f/u qtkw5p2l-y7r8-043d-9696-vvx6g769hd29 05/30/19 15 05/30/2014 Robert Moreno MD f/u y0x7knyh-k6ee-3r37-8325-79hu75bz463q 05/30/19 15 05/30/2014 Robert Moreno MD f/u [id number]-03u6-13il2fu9p5l1 05/30/19 15 05/30/2014 Robert Moreno MD f/u 22ixj7dx-7mp1-9405-zb3o-3k04pg4kx444 05/30/19 15 05/30/2014 Robert Moreno MD f/u 15v70vg8-504x-63f4-k1u6-43z4593g99b9 05/30/19 15 05/30/2014 Robert Moreno MD f/u m84199yl-v776-9e44-pl36-cr57l0851j02 05/30/19 15 05/30/2014 Robert Moreno MD f/u y8vru929-c2d4-71r3-29k4-1ogr658dd47f 05/30/19 15 05/30/2014 Robert Moreno MD f/u 1rykcjd8-r704-4n22-yy76-748q9c139m34 05/30/19 15 05/30/2014 Robert Moreno MD [facility]/u 7m47w837-5h4d-92g3-90i6-j702y5qwqe6q 05/30/19 15 05/30/2014 Robert Moreno MD f/u 9m6g10rg-5x6s-1838-454e-755d7tx6y125 05/30/19 15 05/30/2014 Robert Moreno MD [facility]/u 38ah71vb-0259-3qj6-bs31-y4j6i24hc0ma 05/30/19 15 05/30/2014 Robert Moreno MD f/u 171m0214-loo7-1087-pc0e-09326vje424z 05/30/19 15 05/30/2014 Robert Moreno MD [facility]/u 75a183zy-d1kf-05rb-t2k4-vi96ay04462f 05/30/19 15 05/30/2014 Robert Moreno MD f/u 8s5w470a-27f3-78fb-28i8-4416x7wmj433 05/30/19 15 05/30/2014 Robert Moreno MD f/u 7r847104-e30q-7v92-5jnr-rcom89bt2k2d 05/30/19 15 05/30/2014 Robert Moreno MD [facility]/u ddz87ly4-8gu3-5sbq-nyq5-a53l05e5e4sl 05/30/19 15 05/30/2014 Robert Moreno MD [facility]/u xn87dq8r-338w-0f12-5kjw-41tz26388532 05/30/19 15 05/30/2014 Robert Moreno MD f/u 5013w54l-14jh-6604-gk10-m7340e0584s3 05/30/19 15 05/30/2014 Robert Moreno MD f/u g52g0rd9-1k1a-3087-2e8r-405v1d755454 05/30/19 15 05/30/2014 Robert Moreno MD f/u ma6kq521-027l-6419-4144-6wvt63yz62v4 05/30/19 15 05/30/2014 Robert Moreno MD f/u dq551pu0-3n8e-4601-pk2a-334ipa9a02fm 05/30/19 15 05/30/2014 Robert Moreno MD f/u z44k8610-809f-948c-qleu-q4r4q2qm462q 05/30/19 15 05/30/2014 Robert Moreno MD f/u 1uv7idt6-l887-111i-144p-39a6987zg0fm 05/30/19 15 05/30/2014 Robert Moreno MD f/u 7l9gqi5x-3m26-51kl-41q8-16v826p9hz2s 05/30/19 15 05/30/2014 Robert Moreno MD f/u 361y86c3-2a14-65n8-g81t-34e7bt88rxl4 05/30/19 15 05/30/2014 Robert Moreno MD f/u 94132b55-b8jj-4v7c-m24l-07tz4a1ut696 05/30/19 15 05/30/2014 Robert Moreno MD f/u 3d521k73-0821-7p06-y666-58p35o1fi72r 05/30/19 15 05/30/2014 Robert Moreno MD f/u 3h88txo8-92gb-4si5-a3v3-4y165h06n937 05/30/19 15 05/30/2014 Robert Moreno MD f/u 8931d844-1c4g-5v9s-w729-69w855hbn2xq 05/30/19 15 05/30/2014 Robert Moreno MD f/u 2uuf9zz3-5jn4-965n-0738-g55jf98ql48f 05/30/19 15 05/30/2014 Robert Moreno MD f/u 4qc77w88-8814-9nt6-3c65-776m079k3vh6 05/30/19 15 05/30/2014 Robert Moreno MD [facility]/u g47496b2-x72x-6a59-a6vq-fj9x42n597f0 05/30/19 15 05/30/2014 Robert Moreno MD [facility]/u 4ut7om9g-3816-0629-ti10-j7eoj24q7q64 05/30/19 15 05/30/2014 Robert Moreno MD f/u 6753998c-1s83-12sd-jn0l-n81285w91469 05/30/19 15 05/30/2014 Robert Moreno MD f/u ghoqa12l-1o37-6561-f1pw-j5198k1i6y60 05/30/19 15 05/30/2014 Robert Moreno MD 4W F/U 0t86h506-w83e-4g32-z30r-ay76e27x0e27 06/28/19 15 06/27/2014 Robert Moreno MD 4 F/U 20l2uv6l-zs44-2v97-7026-sx17b97f495l 06/28/19 15 06/27/2014 Robert Moreno MD 4WK F/U w097k989-68tn-0b21-2c05-72sw69e3gt2q 06/28/19 15 06/27/2014 Robert Moreno MD 4W F/U bno6j3l4-137m-9lhq-4755-c51r1p74u819 06/28/19 15 06/27/2014 Robert Moreno MD 4WK F/U 3g7u895r-6853-001o-hlg2-56j63c11yum2 06/28/19 15 06/27/2014 Robert Moreno MD 4W F/U vlr09469-j943-12eh-bx6r-rnfr6h0128x9 06/28/19 15 06/27/2014 Robert Moreno MD 4WCorey F/U gl2ddh53-2648-2080-842q-04610fnqgi29 06/28/19 15 06/27/2014 Robert Moreno MD 4W F/U d33956up-u718-8skz-p86y-32q153568r7k 06/28/19 15 06/27/2014 Robert Moreno MD 4WCorey F/U 4r68t3p2-c668-6k48-9y48-bclp18e8gwmk 06/28/19 15 06/27/2014 Robert Moreno MD 4WCorey F/U y208k093-xanx-385k-vjca-upo54000991y 06/28/19 15 06/27/2014 Robert Moreno MD 4WK F/U m0063749-5740-6gm9-0m2n-44wvlr582j9n 06/28/19 15 06/27/2014 Robert Moreno MD 4WCorey F/U 35016b9v-956n-46nk-io99-9n4era867d8p 06/28/19 15 06/27/2014 Robert Moreno MD 4WK F/U ap6p547z-vw1u-498p-b98a-117r7464x012 06/28/19 15 06/27/2014 Robert Moreno MD 4WK F/U j20m46j9-i1pp-560x-zw79-7542129r0187 06/28/19 15 06/27/2014 Robert Moreno MD 4WK F/U t1612c64-p415-25a5-77l4-1000ua1s1603 06/28/19 15 06/27/2014 Robert Moreno MD 4W F/U 1n3y4a46-p5h5-7xa2-95o1-820j28l33e30 06/28/19 15 06/27/2014 Robert Moreno MD 4WK F/U 9sw5gn2u-pr41-65r6-c9cg-m6jfq55965qf 06/28/19 15 06/27/2014 Robert Moreno MD 4WCorey F/U 550ykgp7-67j3-75q2-125a-52g46504342h 06/28/19 15 06/27/2014 Robert Moreno MD 4W F/U ww4ao985-593m-62p8-43f2-r8gsk1496o02 06/28/19 15 06/27/2014 Robert Moreno MD 4WK F/U 0574q600-0qhb-4u04-b464-e2fq1jh2f0vg 06/28/19 15 06/27/2014 Robert Moreno MD 4WK F/U 5d5114h9-we1f-63vy-6609-1o5106670ei3 06/28/19 15 06/27/2014 Robert Moreno MD 4WK F/U 1458w8w4-rv72-6n6x-b435-g01b781j6ozb 06/28/19 15 06/27/2014 Robert Moreno MD 4WCorey F/U 1383sv28-b5m3-5c87-ml43-9u233382j1p1 06/28/19 15 06/27/2014 Robert Moreno MD 4Corey F/U 5452qx45-5pp4-9t46-9251-5194z9u731a5 06/28/19 15 06/27/2014 Robert Moreno MD 4WCorey F/U 0822l2mt-h1xk-0ui8-6u6h-94y8ka4p2o6y 06/28/19 15 06/27/2014 Robert Moreno MD 4 F/U f24w2765-du60-425k-5r29-40f2578y33fc 06/28/19 15 06/27/2014 Robert Moreno MD 4W F/U y1jt1680-86l9-2299-y980-8oa595j5hm7g 06/28/19 15 06/27/2014 Robert Moreno MD 4W F/U 967ema8m-y217-0ugo-pe82-e8158q667t34 06/28/19 15 06/27/2014 Robert Moreno MD 4WCorey F/U 98rto683-4yju-1b14-bvy7-2a51707567w6 06/28/19 15 06/27/2014 Robert Moreno MD 4WK F/U 014y0lf4-o785-9q90-truj-uej404p49391 06/28/19 15 06/27/2014 Robert Moreno MD 4W F/U x6332n7w-e500-4c16-zd63-e46t9dk74250 06/28/19 15 06/27/2014 Robert Moreno MD 4W F/U 7ev14blr-j667-6931-ox5o-c94y9313x624 06/28/19 15 06/27/2014 Robert Moreno MD 4WK F/U z7s81mk9-i117-909j-153e-5019vm31462q 06/28/19 15 06/27/2014 Robert Moreno MD 4WK F/U 857a41d3-t222-6081-0951-29j271sg110s 06/28/19 15 06/27/2014 Robert Moreno MD 4WK F/U x73yi25z-w92p-60j3-41j9-o28y9649c272 06/28/19 15 06/27/2014 Robert Moreno MD 4WK F/U 5odng02f-91zr-75t7-x372-80412081h3nl 06/28/19 15 06/27/2014 Robert Moreno MD 4WK F/U 1726x3xr-71q3-5565-j20v-lyf5994h3flw 06/28/19 15 06/27/2014 Robert Moreno MD 4WK F/U h456d234-y37m-4b3f-b187-18a78xz7g591 06/28/19 15 06/27/2014 Robert Moreno MD 4WK F/U ft18o0jl-c9h1-106f-co56-23yjesd16nm1 07/26/19 15 07/25/2014 Robert Moreno MD 4WK F/U 1enb90ep-o968-969h-8zsl-8v12430eh939 07/26/19 15 07/25/2014 Robert Moreno MD 4WK F/U lub21c17-1e18-889x-7xg2-0lo215613uu5 07/26/19 15 07/25/2014 Robert Moreno MD 4WK F/U 2fn43o65-5w7e-2d13-d96o-43fil4fid216 07/26/19 15 07/25/2014 Robert Moreno MD 4WK F/U h26s94pj-85ni-2b73-1690-fdt1jk23dv29 07/26/19 15 07/25/2014 Robert Moreno MD 4WK F/U 07wju02a-39bj-0446-v3jl-59819l260cy5 07/26/19 15 07/25/2014 Robert Moreno MD 4WK F/U 3f56g097-050f-34tp-i9c4-360974rrotzu 07/26/19 15 07/25/2014 Robert Moreno MD 4WK F/U 7944155u-j401-29f0-68d2-83z3c87h33vo 07/26/19 15 07/25/2014 Robert Moreno MD 4WK F/U 5hupc1pq-2756-21f2-4667-gph4m8vj7e98 07/26/19 15 07/25/2014 Robert Moreno MD 4WK F/U 1g31az4x-k984-3057-16gh-r063145gp069 07/26/19 15 07/25/2014 Robert Moreno MD 4WK F/U 73jeu608-5909-5cy0-0486-1ytlgr52nv4a 07/26/19 15 07/25/2014 Robert Moreno MD 4WK F/U vz7s5255-36m7-9sl3-t2w5-79c7pgeoa06z 07/26/19 15 07/25/2014 Robert Moreno MD 4WK F/U 4934im3i-73me-25g8-23m6-w8c0s11vq594 07/26/19 15 07/25/2014 Robert Moreno MD 4WK F/U 2z044k6h-2h9s-8dtz-e8o1-258512c70rt5 07/26/19 15 07/25/2014 Robert Moreno MD 4WK F/U aw9l76oi-75ph-91u1-f728-w3x090evrd2j 07/26/19 15 07/25/2014 Robert Moreno MD 4WK F/U 24p2812j-i8tj-34j7-938t-2t0640e2990o 07/26/19 15 07/25/2014 Robert Moreno MD 4WK F/U 343ir80n-184m-1sb6-wmwi-4824f6692wpl 07/26/19 15 07/25/2014 Robert Moreno MD 4WK F/U jg44p8r4-i55f-99vf-74x5-944z2012ns70 07/26/19 15 07/25/2014 Robert Moreno MD 4WK F/U s1koj04j-4f72-5807-7139-3q1ba9782ib5 07/26/19 15 07/25/2014 Robert Moreno MD 4WK F/U 19d8t586-7ect-3qy5-4q58-m09j144g293z 07/26/19 15 07/25/2014 Robert Moreno MD 4WK F/U u36ik21w-wn8w-7z54-y709-xs93161793y3 07/26/19 15 07/25/2014 Robert Moreno MD 4WK F/U h8j4f145-k1k0-0b68-6h32-59640454po17 07/26/19 15 07/25/2014 Robert Moreno MD 4WK F/U 69h88d8o-942s-48m8-2ylw-e7d88656tjgy 07/26/19 15 07/25/2014 Robert Moreno MD 4WK F/U 98yi8380-5j59-6b76-vv3r-6156s0b48682 07/26/19 15 07/25/2014 Robert Moreno MD 4WK F/U 546595lh-da43-87di-5g95-50uf57x06zz1 07/26/19 15 07/25/2014 Robert Moreno MD 4WK F/U kmf206wd-73i5-5n12-oapp-eu8d6q1553u4 07/26/19 15 07/25/2014 Robert Moreno MD 4WK F/U 8j705i65-v5o4-3i70-6608-563504243m75 07/26/19 15 07/25/2014 Robert Moreno MD 4WK F/U 917h7a8l-46qc-9ac5-7e9g-4935zond9vv3 07/26/19 15 07/25/2014 Robert Moreno MD 4WK F/U 66l72355-6q87-9ij5-j687-967o6r4v1v90 07/26/19 15 07/25/2014 Robert Moreno MD 4WK F/U 85r258r8-47yc-8761-c85y-iy6319xvc63a 07/26/19 15 07/25/2014 Robert Moreno MD 4WK F/U 601e81h1-5f09-5q65-0552-39w228324v70 07/26/19 15 07/25/2014 Robert Moreno MD 4WK F/U dd65wy3m-c3z7-6exw-06m6-630m539469s8 07/26/19 15 07/25/2014 Robert Moreno MD 4WK F/U 90a99t24-7690-18k9-2055-d13p1aal4l8f 07/26/19 15 07/25/2014 Robert Moreno MD 4WK F/U 1873o002-9796-9f12-cw0j-521534v114vk 07/26/19 15 07/25/2014 Robert Moreno MD 4WK F/U 5vup26hu-u7u1-9s50-u70p-c08q6uw753f7 07/26/19 15 07/25/2014 Robert Moreno MD 4WK F/U 6g029r42-78oi-403m-nj9v-5yo8107tww6a 07/26/19 15 07/25/2014 Robert Moreno MD 4WK F/U i74d353k-08em-2b9n-0t93-ftbm1558qub0 07/26/19 15 07/25/2014 Robert Moreno MD 4WK F/U 22pw292k-wos3-9ndc-970k-4338i14wcd94 07/26/19 15 07/25/2014 Robert Moreno MD 4WK F/U ig452248-230y-9273-7ia8-6vc042r965e3 08/23/19 15 08/22/2014 Robert Moreno MD 4WK F/U 09g74102-641x-8c03-327h-pz333987u12e 08/23/19 15 08/22/2014 Robert Moreno MD 4WK F/U 9369ul39-9j4m-4d03-o52v-qb3s96o3lfk6 08/23/19 15 08/22/2014 Robert Moreno MD 4WK F/U 06j44p64-t052-044r-8978-s5j197s50738 08/23/19 15 08/22/2014 Robert Moreno MD 4WK F/U d5zm1012-016l-00j5-fwyj-94w1f456atk0 08/23/19 15 08/22/2014 Robert Moreno MD 4WK F/U kf08126l-3818-61y2-769d-t1321nc1g329 08/23/19 15 08/22/2014 Robert Moreno MD 4W F/U p1701e09-rq72-4l04-922m-qu307e7et21q 08/23/19 15 08/22/2014 Robert Moreno MD 4W F/U 93r404g5-8967-3bsa-i36t-9c3fi5env90s 08/23/19 15 08/22/2014 Robert Moreno MD 4W F/U 3e3y4l0d-j63a-1264-kbt1-x2a3j1r57j75 08/23/19 15 08/22/2014 Robert Moreno MD 4WK F/U 91a37h3t-yq76-49l1-3387-6b4f52n5w70p 08/23/19 15 08/22/2014 Robert Moreno MD 4WK F/U 14qjin93-o277-7706-hu4t-7f1if3lo3al3 08/23/19 15 08/22/2014 Robert Moreno MD 4WK F/U 022tn8lt-55w8-6500-a281-8vp1047525i9 08/23/19 15 08/22/2014 Robert Moreno MD 4WK F/U 3ygg084t-m413-87c7-d40l-qa00q1202314 08/23/19 15 08/22/2014 Robert Moreno MD 4W F/U 1zd524c1-2g29-9138-3662-1788a742qo4f 08/23/19 15 08/22/2014 Robert Moreno MD 4WK F/U 558c9958-h4d8-1lgr-v4f8-50527b462062 08/23/19 15 08/22/2014 Robert Moreno MD 4WK F/U y19566l8-9m23-7286-n107-61jqbh68i9ai 08/23/19 15 08/22/2014 Robert Moreno MD 4WK F/U 2006itx9-xmau-793h-fb5j-1j34p47lc8ty 08/23/19 15 08/22/2014 Robert Moreno MD 4WK F/U r05mq3f5-21i8-6418-m4l4-89g041768579 08/23/19 15 08/22/2014 Robert Moreno MD 4WK F/U x04926m1-66j6-2o04-40sx-833zapi118ya 08/23/19 15 08/22/2014 Robert Moreno MD 4WK F/U 3105l2a4-3os1-2g0s-3o56-4koi143g5690 08/23/19 15 08/22/2014 Robert Moreno MD 4WK F/U ak82i001-k820-3029-19pa-w16z57j2rf76 08/23/19 15 08/22/2014 Robert Moreno MD 4WK F/U 6l39jf05-t2p9-05ze-kj87-h052663h77x0 08/23/19 15 08/22/2014 Robert Moreno MD 4WK F/U 768adb64-796f-12w7-4b50-41329a783hr0 08/23/19 15 08/22/2014 Robert Moreno MD 4WK F/U nfi9y4c6-m51j-685o-f0q7-x0ouk46k2p6s 08/23/19 15 08/22/2014 Robert Moreno MD 4WK F/U 17757173-7f97-035p-ci5i-463jk0oh2231 08/23/19 15 08/22/2014 Robert Moreno MD 4WK F/U 75u23ug9-rj13-0h7z-0p0d-501wsq2ifeyn 08/23/19 15 08/22/2014 Robert Moreno MD 4WK F/U 7ao5y97m-95u8-62r3-625i-l853b58326wz 08/23/19 15 08/22/2014 Robert Moreno MD 4W F/U 1586a7fe-ux5o-5k31-6920-ldo936yz3v67 08/23/19 15 08/22/2014 Robert Moreno MD 4W F/U 009vq2r3-0fl3-3213-15k1-719t1180noz9 08/23/19 15 08/22/2014 Robert Moreno MD 4W F/U 09ee4029-l7i2-0r56-h6ee-1r727r987xyn 08/23/19 15 08/22/2014 Robert Moreno MD 4W F/U 9869aep5-9816-761d-655c-2y4axia43u8m 08/23/19 15 08/22/2014 Robert Moreno MD 4WK F/U j7631p04-00r4-77c2-j397-8a41h937a2w1 08/23/19 15 08/22/2014 Robert Moreno MD 4WK F/U w6i5o470-gu11-4321-j820-8xkhtk004y9s 08/23/19 15 08/22/2014 Robert Moreno MD 4W F/U 166gq005-9241-9z04-f9wc-s6p806s07353 08/23/19 15 08/22/2014 Robert Moreno MD 4WK F/U 7c6m96xy-az5t-23nt-40f9-423q71785870 08/23/19 15 08/22/2014 Robert Moreno MD 4WK F/U 9xjus4od-11g3-8609-h7c0-e806a153q37g 08/23/19 15 08/22/2014 Robert Moreno MD 4WK F/U 0tb6hw3a-vgq2-1q59-10dr-rl918398851i 08/23/19 15 08/22/2014 Robert Moreno MD 4WK F/U n05691h5-9li0-5rw7-5066-45hpbd97a354 08/23/19 15 08/22/2014 Robert Moreno MD MRI a379782g-k680-515q-l1z9-96y90s94yu74 08/28/2014 08/28/2014 Robert Moreno MD MRI 14l88694-i76l-2792-t10f-460r7r3fyrf7 08/28/2014 08/28/2014 Robert Moreno MD MRI t31g5dh6-l0s0-9q68-tdur-q92594gz0e8w 08/28/2014 08/28/2014 Robert Moreno MD MRI 373t5k22-yp5q-7254-3181-d287e814x030 08/28/2014 08/28/2014 Robert Moreno MD MRI j08wr7ys-22fi-006i-kzkd-h52xj60932f5 08/28/2014 08/28/2014 Robert Moreno MD MRI 4s6396s0-gv9q-466y-6604-e8dxd22948kc 08/28/2014 08/28/2014 Robert Moreno MD MRI vp340843-8do2-5x56-5100-u6z18c31x279 08/28/2014 08/28/2014 Robert Moreno MD MRI 707uo3q2-49km-5747-0x3i-rp0ew6ao1z1s 08/28/2014 08/28/2014 Robert Moreno MD MRI n4197j90-8z78-1g9a-0lq5-72398y597jt8 08/28/2014 08/28/2014 Robert Moreno MD MRI 1aw166l9-h2fv-7757-11d7-sj72p8g660ns 08/28/2014 08/28/2014 Robert Moreno MD MRI 3839qr9z-vx70-5l2x-t119-3333vywx809m 08/28/2014 08/28/2014 Robert Moreno MD MRI 4751u0vr-w4sy-7690-b15q-5avk88185427 08/28/2014 08/28/2014 Robert Moreno MD MRI gi5j603k-g31c-06ki-vb03-2c41h8o0f895 08/28/2014 08/28/2014 Robert Moreno MD MRI 6k8c3d8o-063h-4y9j-8m1u-we34867zcd42 08/28/2014 08/28/2014 Robert Moreno MD MRI w29q33m0-d332-2f5e-062o-6dxn088739j9 08/28/2014 08/28/2014 Robert Moreno MD MRI a71lw700-5v0k-2y6n-k921-esj608ob274k 08/28/2014 08/28/2014 Robert Morneo MD MRI jf1krj88-047u-7060-n422-36b5r0546zqc 08/28/2014 08/28/2014 Robert Moreno MD MRI 11wr9qo8-2r65-3y8s-3o31-02z598ej80sj 08/28/2014 08/28/2014 Robert Moreno MD MRI 22907k31-g500-1a22-5de3-230o89h23a5i 08/28/2014 08/28/2014 Robert Moreno MD MRI 0hk4tcju-p738-7v2r-2617-27f1id163za3 08/28/2014 08/28/2014 Robert Moreno MD MRI haw5knx7-u629-0v5p-20dc-c47q528e557c 08/28/2014 08/28/2014 Robert Moreno MD MRI mq64859s-68a9-25xf-ap9q-25ru66384844 08/28/2014 08/28/2014 Robert Moreno MD MRI [id number]-g6e2-t2q6o808ubgr 08/28/2014 08/28/2014 Robert Moreno MD MRI q8m7317r-rp13-6t39-v7s5-i65k53tr4003 08/28/2014 08/28/2014 Robert Moreno MD MRI lt4z1h0i-h17c-4w56-u227-78xt39nz52jt 08/28/2014 08/28/2014 Robert Moreno MD MRI 6vp8e3va-728c-05us-124c-2603s3g5ii6u 08/28/2014 08/28/2014 Robert Moreno MD MRI wqc8777x-e192-8r23-2h98-487g67v0569m 08/28/2014 08/28/2014 Robert Moreno MD MRI 8283644l-7q23-61h8-mef9-35w233a3r69o 08/28/2014 08/28/2014 Robert Moreno MD MRI w499x22i-63o1-91zd-w653-86ybn0b1587x 08/28/2014 08/28/2014 Robert Moreno MD MRI zz8iz4pa-8un5-9511-013e-q8868y0gcm8s 08/28/2014 08/28/2014 Robert Moreno MD MRI u8or538n-9842-8x20-gmll-14soj7172734 08/28/2014 08/28/2014 Robert Moreno MD MRI j79vktme-zj6r-133a-fl1i-4w820489903m 08/28/2014 08/28/2014 Robert Moreno MD [facility] [id number]-2598-27c2-e431-080800b9a351 08/28/2014 08/28/2014 Robert Moreno MD MRI 222v083r-s045-381v-5355-gx1212559wm4 08/28/2014 08/28/2014 Robert Moreno MD [facility] l395fj04-2596-1832-84c6-2qfn664q50e2 08/28/2014 08/28/2014 Robert Moreno MD [facility] u8z42q54-23m0-875x-tvfx-gs50418z8267 08/28/2014 08/28/2014 Robert Moreno MD MRI 3o690w24-e448-480d-i9be-52020477vzd1 08/28/2014 08/28/2014 Robert Moreno MD MRI y0r14934-v6m7-6tt6-3zfv-75750j2181vb 08/28/2014 08/28/2014 Robert Moreno MD Refill- Folic Acid d6507gut-yp4c-6z54-gn6w-22j69e20x8f5 09/20/19 15 09/19/2014 Robert Moreno MD Refill- Folic Acid 7y9w957a-i497-2h7m-v714-i318ab7u423v 09/20/19 15 09/19/2014 Robert Moreno MD Refill- Folic Acid y86492o9-v826-607m-461g-3qf1d34a585j 09/20/19 15 09/19/2014 Robert Moreno MD Refill- Folic Acid c9258984-703n-7282-0820-3o00427950dl 09/20/19 15 09/19/2014 Robert Moreno MD Refill- Folic Acid oa0g3k00-v740-8698-f13d-rsscw7803227 09/20/19 15 09/19/2014 Robert Moreno MD Refill- Folic Acid 4827234l-r13x-39h5-6t03-l950e2w97493 09/20/19 15 09/19/2014 Robert Moreno MD Refill- Folic Acid khopjvb4-96px-6w4u4r2n-om08-9x4487g72386 09/20/19 15 09/19/2014 Robert Moreno MD Refill- Folic Acid 90ig259q-ek59-8r72-5yh7-n7x473644og9 09/20/19 15 09/19/2014 Robert Moreno MD Refill- Folic Acid ip923l2h-34w3-5d39-m658-6i7031ya4f2p 09/20/19 15 09/19/2014 Robert Moreno MD Refill- Folic Acid g08x9z5a-41gv-2m5y-0r65-j6i4m2nxc75b 09/20/19 15 09/19/2014 Robert Moreno MD Refill- Folic Acid n8hgt0rp-0eq2-6z21-mcc1-3m60h378654u 09/20/19 15 09/19/2014 Robert Moreno MD Refill- Folic Acid x50u75qk-2a18-1ayk-3x82-44151837um67 09/20/19 15 09/19/2014 Robert Moreno MD Refill- Folic Acid 34uj1kff-u025-86e6-toy9-p9j4v7qs0329 09/20/19 15 09/19/2014 Robert Moreno MD Refill- Folic Acid 9794884v-e157-47xi-gfx0-0b504f788s8r 09/20/19 15 09/19/2014 Robert Moreno MD Refill- Folic Acid 0z48179l-3501-81qw-mhe4-a382qt598908 09/20/19 15 09/19/2014 Robert Moreno MD Refill- Folic Acid 0it7sd36-598x-9k79-7nnr-1prs71c8079y 09/20/19 15 09/19/2014 Robert Moreno MD Refill- Folic Acid q4080z9s-c9n2-6f97-2h0w-l6947d4y8473 09/20/19 15 09/19/2014 Robert Moreno MD [facility] F/U 1c1ir99g-2045-264b-k3w7-5086oh0qh343 09/20/19 15 09/19/2014 Robert Moreno MD 4[facility] F/U z3x1g6ux-4l8a-87m3-6613-3ix05437s0p1 09/20/19 15 09/19/2014 Robert Moreno MD 4[facility] F/U j01m00u0-c38j-82dt-69e5-60m8abenwq57 09/20/19 15 09/19/2014 Robert Moreno MD 4[facility] F/U w7785o58-l0m0-32t2-067w-38283dtal488 09/20/19 15 09/19/2014 Robert Moreno MD 4[facility] F/U l413r17f-67z3-033w-72dr-w2r498614b7r 09/20/19 15 09/19/2014 Robert Moreno MD [facility] F/U 791f7v75-5o48-22hg-q03d-303u6lh9o354 09/20/19 15 09/19/2014 Robert Moreno MD 4[facility] F/U 1335co2d-53o3-275w-2gty-td3nn950h822 09/20/19 15 09/19/2014 Robert Moreno MD 4[facility] F/U p164p7p9-5dg6-9639-4l70-120f75e6678d 09/20/19 15 09/19/2014 Robert Moreno MD [facility] F/U 3068yq25-3361-2634-1669-mx97o6o5t505 09/20/19 15 09/19/2014 Robert Moreno MD 4[facility] F/U 81512t49-snh2-09xu-rrx6-35j9q4g59sc7 09/20/19 15 09/19/2014 Robert Moreno MD 4[facility] F/U m3p4u91o-1937-492a-phc8-k41k1jk1ftou 09/20/19 15 09/19/2014 Robert Moreno MD 4[facility] F/U mj35h9u6-d48m-8p4u-7x50-44o56078pw80 09/20/19 15 09/19/2014 Robert Moreno MD [facility] F/U 8e09amh9-0bck-50p9-fw91-frr0655otjm0 09/20/19 15 09/19/2014 Robert Moreno MD 4[facility] F/U 29pi7019-31x7-3hd4-34ot-k94ua4j11261 09/20/19 15 09/19/2014 Robert Moreno MD 4[facility] /U 6790ic31-i28o-2866-4b16-1vyg1x987376 09/20/19 15 09/19/2014 Robert Moreno MD [facility] F/U 2c8f1pj1-0919-5826-1688-0wo58305io03 09/20/19 15 09/19/2014 Robert Moreno MD 4[facility] /U 3d3233d6-4248-2kp1-1h72-il97246a8476 09/20/19 15 09/19/2014 Robert Moreno MD Refill- Folic Acid 2bl09144-z551-2z84-gj9v-70ra5898sll2 09/20/19 15 09/19/2014 Robert Moreno MD Refill- Folic Acid b43a1911-1po8-7c22-f113-bv04z460r390 09/20/19 15 09/19/2014 Robert Moreno MD Refill- Folic Acid 9b99dwam-q361-0d3e-7914-j8237ynv3753 09/20/19 15 09/19/2014 Robert Moreno MD Refill- Folic Acid j31ay053-01r4-5mp0-5fq9-2g55jw57lg85 09/20/19 15 09/19/2014 Robert Moreno MD Refill- Folic Acid 616ya998-39n8-57zu-3030-9b97l20c820x 09/20/19 15 09/19/2014 Robert Moreno MD Refill- Folic Acid 95193q87-6se7-008k-7u50-57j5o2d4i3o7 09/20/19 15 09/19/2014 Robert Moreno MD Refill- Folic Acid gy801557-49v6-0071-40m9-v42164y01770 09/20/19 15 09/19/2014 Robert Moreno MD Refill- Folic Acid 194s5191-1070-945z-q542-599e0932m3ec 09/20/19 15 09/19/2014 Robert Moreno MD Refill- Folic Acid 7f1e81t4-o216-8439-222w-15174cb26845 09/20/19 15 09/19/2014 Robert Moreno MD Refill- Folic Acid b8xq6380-k0z6-18bo-3km5-60wo06ohy593 09/20/19 15 09/19/2014 Robert Moreno MD Refill- Folic Acid 5z2sxe93-u6j2-02jn-3g1j-20w24b1y9h54 09/20/19 15 09/19/2014 Robert Moreno MD Refill- Folic Acid k9f6vk26-8025-98p5-2952-g29598c18m05 09/20/19 15 09/19/2014 Robert Moreno MD Refill- Folic Acid 96su5932-10cf-1216-5135-65b057q0s539 09/20/19 15 09/19/2014 Robert Moreno MD Refill- Folic Acid e6521wx3-2661-03v6-mjbo-u65z72522814 09/20/19 15 09/19/2014 Robert Moreno MD Refill- Folic Acid 8264218t-p05t-5a8j-8955-s19o9997ow3k 09/20/19 15 09/19/2014 Robert Moreno MD Refill- Folic Acid qli78071-v46q-6heh-74jm-a4285dib9dvf 09/20/19 15 09/19/2014 Robert Moreno MD Refill- Folic Acid 51536062-bl5m-5w97-ai07-3m191l556dx5 09/20/19 15 09/19/2014 Robert Moreno MD Refill- Folic Acid t655d921-7y2m-68d5-fo57-4el94653z2c6 09/20/19 15 09/19/2014 Robert Moreno MD Refill- Folic Acid cf3x9c8k-079n-95y7-77a4-89u9b67w4122 09/20/19 15 09/19/2014 Robert Moreno MD 4[facility] F/U 40x329f2-3lsr-1c01-h421-dj07v38o24yk 09/20/19 15 09/19/2014 Robert Moreno MD 4[facility] F/U 9l2loy2t-h7v9-6s9w-ixzv-10nry9oh63n9 09/20/19 15 09/19/2014 Robert Moreno MD 4[facility] F/U 86s25ik2-805t-424d-bvjt-344h85r5q33b 09/20/19 15 09/19/2014 Robert Moreno MD 4[facility] F/U 98691l00-14l1-4n08-219p-o451702e20dt 09/20/19 15 09/19/2014 Robert Moreno MD 4[facility] F/U 1w363z33-835s-2q7d-tg15-4c6g3g35h1fh 09/20/19 15 09/19/2014 Robert Moreno MD 4[facility] F/U 5074y888-89uk-30vd-0900-8460794597h2 09/20/19 15 09/19/2014 Robert Moreno MD 4[facility] F/U moqu19c9-hlh9-4960-wi1m-j993am734931 09/20/19 15 09/19/2014 Robert Moreno MD 4[facility] F/U el0846tf-426d-5601-m9m9-l9xrw8vo37h0 09/20/19 15 09/19/2014 Robert Moreno MD 4[facility] F/U b80e1wi6-lh2c-0s3y-766u-iy49m8y852qr 09/20/19 15 09/19/2014 Robert Moreno MD 4[facility] F/U m31n3l3y-0187-1a8j-v131-880m5odh1m3q 09/20/19 15 09/19/2014 Robert Moreno MD 4[facility] F/U l0y3h0u0-7k9k-2738-zm92-cg318d14qe7n 09/20/19 15 09/19/2014 Robert Moreno MD 4[facility] F/U 4592y8kc-u562-04kw-3z4c-66mz46s6q211 09/20/19 15 09/19/2014 Robert Moreno MD 4[facility] F/U 88k97749-2of7-894c-4974-04d9lus6oh52 09/20/19 15 09/19/2014 Robert Moreno MD 4[facility] F/U 8r76597d-8860-40v0-4436-06b75w068162 09/20/19 15 09/19/2014 Robert Moreno MD 4[facility] F/U 3b37o687-qt37-4l1l-w8fz-d99681f968l6 09/20/19 15 09/19/2014 Roebrt Moreno MD 4[facility] F/U 3683kzw4-442u-0803-0268-8l7q334904xw 09/20/19 15 09/19/2014 Robert Moreno MD 4[facility] F/U w9bp5858-7312-434f-pn79-5q0n919740o4 09/20/19 15 09/19/2014 Robert Moreno MD 4[facility] F/U sy69703f-974q-24ja-x440-g8425b4tswy6 09/20/19 15 09/19/2014 Robert Moreno MD 4[facility] F/U 9758s164-7ua9-0792-o1s0-7ivnfdrt926j 09/20/19 15 09/19/2014 Robert Moreno MD 4[facility] F/U 9d0nxva1-7617-7985-71ut-oc0wk5333367 11/01/19 15 10/31/2014 Robert Moreno MD 4[facility] F/U 59e1bru2-e4kk-42ox-w16u-g7e70tk99tv6 11/01/19 15 10/31/2014 Robert Moreno MD 4[facility] F/U sm7621m0-5zf7-8y60-y876-6co02m337698 11/01/19 15 10/31/2014 Robert Moreno MD 4[facility] F/U n6f4s823-cj5j-68ha-737p-995c1e69i4o6 11/01/19 15 10/31/2014 Robert Moreno MD 4[facility] F/U 678n987n-ey46-7o45-11vt-0mm62e9b1660 11/01/19 15 10/31/2014 Robert Moreno MD 4[facility] F/U zan0cqyl-6557-7idb-841o-4207y94j64u6 11/01/19 15 10/31/2014 Robert Moreno MD 4[facility] F/U z36vo2f3-47n7-923u-55p3-9234893l1047 11/01/19 15 10/31/2014 Robert Moreno MD 4[facility] F/U 66erz775-6z16-4917-131d-iw9p668d5410 11/01/19 15 10/31/2014 Robert Moreno MD 4[facility] F/U r7y473u9-7usp-3i06-3735-51586p9j4rv6 11/01/19 15 10/31/2014 Robert Moreno MD 4[facility] F/U z1g804dp-0724-6266-u6u6-slu611a05723 11/01/19 15 10/31/2014 Robert Moreno MD 4[facility] F/U 2265z439-7o41-4116-p37m-0129kwi55au6 11/01/19 15 10/31/2014 Robert Moreno MD 4[facility] F/U 0832pg21-100y-0979-333d-8way544v40uk 11/01/19 15 10/31/2014 Robert Moreno MD 4[facility] F/U 79f32573-79cs-0301-p191-td6yf69rxs02 11/01/19 15 10/31/2014 Robert Moreno MD 4[facility] F/U 4f64skj6-p579-1bo8-8g75-5cf28mm5136t 11/01/19 15 10/31/2014 Robert Moreno MD 4[facility] F/U 28y6goce-88et-510h-16d1-5128jc603701 11/01/19 15 10/31/2014 Robert Moreno MD 4[facility] F/U 966m6699-k83u-0ku0-34s7-2z4d2jxj5d9w 11/01/19 15 10/31/2014 Robert Moreno MD 4[facility] F/U 8p736a9w-697a-9k3o-00fj-7i9ib47ci738 11/01/19 15 10/31/2014 Robert Moreno MD 4[facility] F/U 567a8ysg-964w-3h6j-9025-e1119vs40uy4 11/01/19 15 10/31/2014 Robert Moreno MD 4[facility] F/U 8v85w69j-966j-6b07-gg3p-39x63992d05q 11/01/19 15 10/31/2014 Robert Moreno MD 4W F/U p28qsmmp-76g4-58k7-f392-54klg12302ki 11/01/19 15 10/31/2014 Robert Moreno MD 4W F/U e1k3z2zr-ccoa-8832-ggy1-7z72w7cfm87z 11/01/19 15 10/31/2014 Robert Moreno MD 4[facility] F/U 2449g592-so04-7s97-641y-m4m1639zfgx4 11/01/19 15 10/31/2014 Robert Moreno MD 4W F/U 941884ww-8vz4-9kk3-7488-6ae01f0880p5 11/01/19 15 10/31/2014 Robert Moreno MD 4W F/U 588zp471-5kfm-87e5-118m-83a57p20g48b 11/01/19 15 10/31/2014 Robert Moreno MD 4W F/U h0bo8434-w609-85z1-9106-p93pf84q0c4z 11/01/19 15 10/31/2014 Robert Moreno MD 4[facility] F/U 2dd84876-rm1l-12t3-o83c-huyry6095608 11/01/19 15 10/31/2014 Robert Moreno MD 4[facility] F/U 3vf65at6-0955-4l6t-lb5a-7x7zm71gqaqm 11/01/19 15 10/31/2014 Robert Moreno MD 4W F/U 53821s3l-4y18-7im8-mwn4-923f78rk0149 11/01/19 15 10/31/2014 Robert Moreno MD 4[facility] F/U nbv3n255-8s6w-826u-746v-9908177lb956 11/01/19 15 10/31/2014 Robert Moreno MD 4W F/U 36746624-014e-9149-0637-54r79w22mb61 11/01/19 15 10/31/2014 Robert Moreno MD 4W F/U 956971ci-v1vj-484n-3v0j-q81jm2488672 11/01/19 15 10/31/2014 Robert Moreno MD 4[facility] F/U t97i5xt6-jzl1-97fg-jo22-kz50n6cy2622 11/01/19 15 10/31/2014 Robert Moreno MD 4W F/U lm32601c-4y6d-8290-fhd3-8401zg902g84 11/01/19 15 10/31/2014 Robert Moreno MD 4W F/U rw91xlt9-53dn-1121-02vf-8vfmu00l522z 11/01/19 15 10/31/2014 Robert Moreno MD 4W F/U 33324x46-5891-10n6-o40l-5pno984g2177 11/01/19 15 10/31/2014 Robert Moreno MD 4W F/U 326d2u48-byq3-8rot-48mx-04gmsu5j7799 11/01/19 15 10/31/2014 Robert Moreno MD MRI 12w56r87-cb7d-993u-0hj9-880v1ui7s0r8 11/07/2014 11/07/2014 Robert Moreno MD MRI ip7e229q-ag15-648i-ze71-tm933972009r 11/07/2014 11/07/2014 Robert Moreno MD MRI 01549x3r-6235-21ol-m94h-u801123s5718 11/07/2014 11/07/2014 Robert Moreno MD MRI 0i039763-903t-3d9r-t9sy-775q32m6929s 11/07/2014 11/07/2014 Robert Moreno MD MRI 0273507u-h289-30kf-7w30-b24tp74e1u51 11/07/2014 11/07/2014 Robert Moreno MD MRI q6p18bv3-hd43-8tj7-nksj-ep3fi3mzgtbu 11/07/2014 11/07/2014 Robert Moreno MD MRI 51eh4665-c29j-0839-1b4x-7686399re120 11/07/2014 11/07/2014 Robert Moreno MD MRI r4838170-0sf8-4175-4428-0388fs1gob16 11/07/2014 11/07/2014 Robert Moreno MD MRI c31ro1z0-bv1k-82v5-a6m1-p2fj80xig4o3 11/07/2014 11/07/2014 Robert Moreno MD MRI 0579y05v-w0a8-3264-m62d-90e31tp6wn36 11/07/2014 11/07/2014 Robert Moreno MD MRI la6d29y4-463l-4916-t231-47t857097v45 11/07/2014 11/07/2014 Robert Moreno MD MRI 4x653n2u-2823-10k8-r44r-5u4365m6sau3 11/07/2014 11/07/2014 Robert Moreno MD MRI 088486v3-452g-6551-ajg2-3hk01027e0lx 11/07/2014 11/07/2014 Robert Moreno MD MRI 376gs287-5y25-5202-0fsd-910612s66qau 11/07/2014 11/07/2014 Robert Moreno MD MRI 52p556n6-t5k6-62o2-719t-en0733887fts 11/07/2014 11/07/2014 Robert Moreno MD MRI 8142nzmg-1v6e-19754c4d-3938-898r-iqr1n1568688 11/07/2014 11/07/2014 Robert Moreno MD MRI 2igtk96f-9y19-31ee-62xj-2l3208f87q78 11/07/2014 11/07/2014 Robert Moreno MD MRI 95cl4455-v6i1-7n89-63r8-3b117b43tf14 11/07/2014 11/07/2014 Robert Moreno MD MRI yf8v5376-34rv-7s1x-3w16-77026n30bp5a 11/07/2014 11/07/2014 Robert Moreno MD MRI 1c19i1u0-171i-5154-6p93-k2j570s7k8of 11/07/2014 11/07/2014 Robert Moreno MD MRI s0aku469-0876-2855-58h4-5992314i7025 11/07/2014 11/07/2014 Robert Moreno MD MRI 6wz4uy4g-36n5-4907-ig8h-05srk9rvwf24 11/07/2014 11/07/2014 Robert Moreno MD MRI 30v2u3v9-mg33-469w-5x5w-2kx45q26ku92 11/07/2014 11/07/2014 Robert Moreno MD MRI 7p0zq387-84r7-847w-1fjd-wan0h0drh095 11/07/2014 11/07/2014 Robert Moreno MD MRI 96yauj61-8582-4554-6048-822f07n397zm 11/07/2014 11/07/2014 Robert Moreno MD MRI 5205h8s6-r861-51on-qhs7-e4w02vwqwv44 11/07/2014 11/07/2014 Robert Moreno MD MRI 626w3co9-6788-3d08-987p-ojl3lxs6i281 11/07/2014 11/07/2014 Robert Moreno MD MRI m96ln5o2-773j-3oc4-sif4-v13603ro82s0 11/07/2014 11/07/2014 Robert Moreno MD MRI 540gt16g-0n2f-886c-s77p-1xt1833511hy 11/07/2014 11/07/2014 Robert Moreno MD MRI 73wiw572-jo1n-654w-9h30-09aa06p875gk 11/07/2014 11/07/2014 Robert Moreno MD MRI 54df6g57-md88-42t7-pm11-04rqf3580lvm 11/07/2014 11/07/2014 Robert Moreno MD MRI 716gx70n-7751-4rn3-mrr3-79q586g3131d 11/07/2014 11/07/2014 Robert Moreno MD MRI 9g49r389-65u8-2k24-9657-x107a403361r 11/07/2014 11/07/2014 Robert Moreno MD MRI 780lw082-98ey-9pb8-030c-tjp95q28x125 11/07/2014 11/07/2014 Robert Moreno MD MRI 9n92r511-b9v4-91f9-7320-3jd93j49stqw 11/07/2014 11/07/2014 Robert Moreno MD MRI 456nkry3-v25x-3464-2057-2v1021mo5853 11/07/2014 11/07/2014 Robert Moreno MD 4[facility] F/U b55s5pz4-496k-0312-76m0-46d934t3s37z 12/03/19 15 12/02/2014 Robert Moreno MD 4WK F/U 04048r07-6r9s-8678-q619-kw52s108954h 12/03/19 15 12/02/2014 Robert Moreno MD 4WK F/U 93n4yv0g-75iz-6v28-pb96-5787249k011y 12/03/19 15 12/02/2014 Robert Moreno MD 4WK F/U i8zq2m9a-qvm7-8676-4hax-7cv493340s8w 12/03/19 15 12/02/2014 Robert Moreno MD 4WK F/U 61s202d0-zf24-3374-867r-940f48170447 12/03/19 15 12/02/2014 Robert Moreno MD 4WK F/U 5y92q988-853g-410l-oo1v-72s34yd2m5zz 12/03/19 15 12/02/2014 Robert Moreno MD 4WK F/U o654y473-s782-3vjx-x7lh-v064347h8o41 12/03/19 15 12/02/2014 Robert Moreno MD 4WK F/U 4h6ccv91-5s2r-3823-5v2j-7x433u3atr10 12/03/19 15 12/02/2014 Robert Moreno MD 4WK F/U 8xnu2p4n-zyg6-2n7n-pbnd-2a03ao9k922j 12/03/19 15 12/02/2014 Robert Moreno MD 4WK F/U 0f6aqa61-4rd0-941z-uqee-1686u5832e66 12/03/19 15 12/02/2014 Robert Moreno MD 4W F/U cflz9q10-x928-964x-yy76-92pr07q5v21y 12/03/19 15 12/02/2014 Robert Moreno MD 4W F/U b0z9cl24-9l41-5m08-u134-6051xf3172c2 12/03/19 15 12/02/2014 Robert Moreno MD 4W F/U 50rmn94w-d68k-1d45-t838-h61j0s53x919 12/03/19 15 12/02/2014 Robert Moreno MD 4W F/U lj42lez8-mi04-7s57-n843-g11plle83dsg 12/03/19 15 12/02/2014 Robert Moreno MD 4W F/U eqmb5upn-23t1-7507-u848-xbua5p9853w9 12/03/19 15 12/02/2014 Robert Moreno MD 4W F/U shms784t-9112-317h-g3f6-ds947470vt07 12/03/19 15 12/02/2014 Robert Moreno MD 4WCorey F/U 2l19197c-563n-1226-l368-i56vd60r4d44 12/03/19 15 12/02/2014 Robert Moreno MD 4WK F/U 7h0dl986-4ug9-7rk1-7o74-q82f874ctkbe 12/03/19 15 12/02/2014 Robert Moreno MD 4W F/U 928yp742-13fh-0149-g256-z59x7c5e2b94 12/03/19 15 12/02/2014 Robert Moreno MD 4W F/U 65241z65-f8j3-61e1-s543-zfhbb68q37f3 12/03/19 15 12/02/2014 Robert Moreno MD 4WK F/U wyui1832-92rp-57dp-833k-f1vb7n488j03 12/03/19 15 12/02/2014 Robert Moreno MD 4WK F/U 118m902r-51v9-78bi-2y62-125g61b802vj 12/03/19 15 12/02/2014 Robert Moreno MD 4WK F/U 95s29l31-74bh-8c9e-5pe6-a6gkv6h55t2j 12/03/19 15 12/02/2014 Robert Moreno MD 4WK F/U 3u50pj65-j6u1-8085-k71k-3h4988l3c3ed 12/03/19 15 12/02/2014 Robert Moreno MD 4WK F/U 0v4x2203-9p2q-6290-z7i1-s33jp407r511 12/03/19 15 12/02/2014 Robert Moreno MD 4WK F/U lo5gh2k9-9s11-129u-40kx-l0zj7697ckea 12/03/19 15 12/02/2014 Robert Moreno MD 4WK F/U bojmto53-5g54-3430-279v-08bg6r681h2p 12/03/19 15 12/02/2014 Robert Moreno MD 4WK F/U 40fb750c-647t-9m73-40qq-228k19901m79 12/03/19 15 12/02/2014 Robert Moreno MD 4WK F/U 65966852-xp19-1a17-7029-221w0q8495m7 12/03/19 15 12/02/2014 Robert Moreno MD 4WK F/U sf2v6vnu-i810-371d-x94e-467a5db976qr 12/03/19 15 12/02/2014 Robert Moreno MD 4WK F/U [id number] 12/03/19 15 12/02/2014 Robert Moreno MD 4WK F/U [id number] 12/03/19 15 12/02/2014 Robert Moreno MD 4WK F/U [id number]-[id number] 12/03/19 15 12/02/2014 Robert Moreno MD 4WK F/U [id number] 12/03/19 15 12/02/2014 Robert Moreno MD 4WK F/U [id number]-[id number] 12/03/19 15 12/02/2014 Robert Moreno MD Unknown [id number] 12/03/19 15 12/02/2014 Robert Moreno MD Unknown [id number] 12/03/19 15 12/02/2014 Robert Moreno MD Unknown [id number] 12/03/19 15 12/02/2014 Robert Moreno MD Unknown [id number] 12/03/19 15 12/02/2014 Robert Moreno MD Unknown [id number] 12/03/19 15 12/02/2014 Robert Moreno MD Unknown [id number] 12/03/19 15 12/02/2014 Robert Moreno MD Unknown [id number] 12/03/19 15 12/02/2014 Robert Moreno MD Unknown [id number] 12/03/19 15 12/02/2014 Robert Moreno MD Unknown [id number] 12/03/19 15 12/02/2014 Robert Moreno MD Unknown [id number] 12/03/19 15 12/02/2014 Robert Moreno MD Unknown [id number] 12/03/19 15 12/02/2014 Robert Moreno MD Unknown [id number] 12/03/19 15 12/02/2014 Robert Moreno MD Unknown [id number] 12/03/19 15 12/02/2014 Robert Moreno MD Unknown [id number] 12/03/19 15 12/02/2014 Robert Moreno MD Unknown [id number] 12/03/19 15 12/02/2014 Robert Moreno MD Unknown [id number] 12/03/19 15 12/02/2014 Robert Moreno MD Unknown [id number] 12/03/19 15 12/02/2014 Robert Moreno MD Unknown [id number] 12/03/19 15 12/02/2014 Robert Moreno MD Unknown [id number] 12/03/19 15 12/02/2014 Robert Moreno MD Unknown [id number] 12/03/19 15 12/02/2014 Robert Moreno MD Unknown [id number] 12/03/19 15 12/02/2014 Robert Moreno MD Unknown [id number] 12/03/19 15 12/02/2014 Robert Moreno MD Unknown [id number] 12/03/19 15 12/02/2014 Robert Moreno MD Unknown [id number] 12/03/19 15 12/02/2014 Robert Moreno MD Unknown [id number] 12/03/19 15 12/02/2014 Robert Moreno MD Unknown [id number] 12/03/19 15 12/02/2014 Robert Moreno MD Unknown [id number] 12/03/19 15 12/02/2014 Robert Moreno MD Unknown [id number] 12/03/19 15 12/02/2014 Robert Moreno MD Unknown [id number] 12/03/19 15 12/02/2014 Robert Moreno MD Unknown [id number] 12/03/19 15 12/02/2014 Robert Moreno MD Unknown [id number] 12/03/19 15 12/02/2014 Robert Moerno MD Unknown [id number] 12/03/19 15 12/02/2014 Robert Moreno MD Unknown [id number] 12/03/19 15 12/02/2014 Robert Moreno MD Unknown [id number] 12/03/19 15 12/02/2014 Robert Moreno MD Unknown [id number] 12/03/19 15 12/02/2014 Robert Moreno MD Rx and Scheduling [id number] 12/15/19 15 12/14/2014 Robert Moreno MD Rx and Scheduling [id number] 12/15/19 15 12/14/2014 Robert Moreno MD Rx and Scheduling [id number]-v4m8-2t455405mfit 12/15/19 15 12/14/2014 Robert Moreno MD Rx and Scheduling [id number]-[id number]-iv70-87g0b2h408s5 12/15/19 15 12/14/2014 Robert Moreno MD Rx and Scheduling [id number]-rg4l-jv256c96b828 12/15/19 15 12/14/2014 Robert Moreno MD Rx and Scheduling [id number] 12/15/19 15 12/14/2014 Robert Moreno MD Rx and Scheduling [id number] 12/15/19 15 12/14/2014 Robert Moreno MD Rx and Scheduling [id number]-v590-3444-bif3-97e5blq1rsrd 12/15/19 15 12/14/2014 Robert Moreno MD Rx and Scheduling [id number]-nu4r-[id number]-u53b1p7569yv 12/15/19 15 12/14/2014 Robert Moreno MD Rx and Scheduling [id number]-g2i5-68t454x3h648 12/15/19 15 12/14/2014 Robert Moreno MD Rx and Scheduling [id number] 12/15/19 15 12/14/2014 Robert Moreno MD Rx and Scheduling [id number]-mt5h-d755r3cd8axj 12/15/19 15 12/14/2014 Robert Moreno MD Rx and Scheduling [id number]-31lw-[id number] 12/15/19 15 12/14/2014 Robert Moreno MD Rx and Scheduling [id number] 12/15/19 15 12/14/2014 Robert Moreno MD Rx and Scheduling [id number]-tb31-98c4605lqr38 12/15/19 15 12/14/2014 Robert Moreno MD Rx and Scheduling [id number] 12/15/19 15 12/14/2014 Robert Moreno MD Rx and Scheduling [id number]-3u63-a177-93o915z6h950 12/15/19 15 12/14/2014 Robert Moreno MD Rx and Scheduling evw215h8-70ls-[id number]-f03v08n63l7e 12/15/19 15 12/14/2014 Robert Moreno MD Rx and Scheduling [id number] 12/15/19 15 12/14/2014 Robert Moreno MD Rx and Scheduling [id number]-[id number] 12/15/19 15 12/14/2014 Robert Moreno MD Rx and Scheduling [id number]-gh37-17j6-wqq2-517gz24q431b 12/15/19 15 12/14/2014 Robert Moreno MD Rx and Scheduling [id number] 12/15/19 15 12/14/2014 Robert Moreno MD Rx and Scheduling [id number]-879n2719wg7a 12/15/19 15 12/14/2014 Robert Moreno MD Rx and Scheduling [id number]-464v-[id number] 12/15/19 15 12/14/2014 Robert Moreno MD Rx and Scheduling [id number] 12/15/19 15 12/14/2014 Robert Moreno MD Rx and Scheduling [id number]-8voj-2je7-278usc48ivvi 12/15/19 15 12/14/2014 Robert Moreno MD Rx and Scheduling [id number]-a0m4-1l1232iss9o8 12/15/19 15 12/14/2014 Robert Moreno MD Rx and Scheduling [id number]-[id number] 12/15/19 15 12/14/2014 Robert Moreno MD Rx and Scheduling [id number]-[id number] 12/15/19 15 12/14/2014 Robert Moreno MD Rx and Scheduling [id number] 12/15/19 15 12/14/2014 Robert Moreno MD Rx and Scheduling acic3bey-[id number]-q561w0d93r3u 12/15/19 15 12/14/2014 Robert Moreno MD Rx and Scheduling [id number] 12/15/19 15 12/14/2014 Robert Moreno MD Rx and Scheduling [id number]-[id number]-813r2qztl1g5 12/15/19 15 12/14/2014 Robert Moreno MD Rx and Scheduling [id number]-x091-dqp126i650fc 12/15/19 15 12/14/2014 Robert Moreno MD [facility] [id number]-k3k816vmw42q 01/17/20 15 01/16/2015 Robert Moreno MD [facility] [employer] [id number] 01/17/20 15 01/16/2015 Robert Moreno MD [facility] [id number] 01/17/20 15 01/16/2015 Robert Moreno MD [facility] REFI[facility] [id number] 01/17/20 15 01/16/2015 Robert Moreno MD [facility] [id number]-n5y1-q28e4f192o1p 01/17/20 15 01/16/2015 Robert Moreno MD [facility] [id number] 01/17/20 15 01/16/2015 Robert Moreno MD [facility] [employer] [id number] 01/17/20 15 01/16/2015 Robert Moreno MD [facility] REFI[facility] [id number] 01/17/20 15 01/16/2015 Robert Moreno MD [place] REFI[facility] [id number]-10jk-pql0-66g742q8w3e3 01/17/20 15 01/16/2015 MD [place] z7frdlye-[id number]-[id number] 01/17/20 15 01/16/2015 Robert Moreno MD [facility] REFILL [id number]-b5210l693uq3 01/17/20 15 01/16/2015 Robert Moreno MD [place] REFI[facility] [id number]-y9886az89z93 01/17/20 15 01/16/2015 Robert Moreno MD [place] REFI[facility] [id number]-[id number] 01/17/20 15 01/16/2015 Robert Moreno MD [place] REFI[employer] [id number] 01/17/20 15 01/16/2015 Robert Moreno MD [facility] REFILL [id number]-[id number] 01/17/20 15 01/16/2015 Robert Moreno MD Unknown [id number] 01/17/20 15 01/16/2015 Robert Moreno MD Unknown [id number] 01/17/20 15 01/16/2015 Robert Moreno MD Unknown [id number] 01/17/20 15 01/16/2015 Robert Moreno MD Unknown [id number] 01/17/20 15 01/16/2015 Robert Moreno MD Unknown [id number] 01/17/20 15 01/16/2015 Robert Moreno MD Unknown [id number] 01/17/20 15 01/16/2015 Robert Moreno MD Unknown [id number] 01/17/20 15 01/16/2015 Robert Moreno MD Unknown [id number] 01/17/20 15 01/16/2015 Robert Moreno MD Unknown [id number] 01/17/20 15 01/16/2015 Robert Moreno MD Unknown [id number] 01/17/20 15 01/16/2015 Robert Moreno MD Unknown [id number] 01/17/20 15 01/16/2015 Robert Moreno MD Unknown [id number] 01/17/20 15 01/16/2015 Robert Moreno MD Unknown [id number] 01/17/20 15 01/16/2015 Robert Moreno MD Unknown [id number] 01/17/20 15 01/16/2015 Robert Moreno MD Unknown [id number] 01/17/20 15 01/16/2015 Robert Moreno MD [facility] [id number] 01/17/20 15 01/16/2015 Robert Moreno MD [facility] [id number]-gs14y271c701 01/17/20 15 01/16/2015 Robert Moreno MD [facility] [id number]-8888-w97j-g76d478k3okt 01/17/20 15 01/16/2015 Robert Moreno MD [facility] 950nizti-b05x-[id number]-262v-3a51o4dzj245 01/17/20 15 01/16/2015 Robert Moreno MD [facility] [id number] 01/17/20 15 01/16/2015 Robert Moreno MD [facility] [id number]-rwcru47bvm1a 01/17/20 15 01/16/2015 Robert Moreno MD [facility] 3wfwg6h2-z380-965f-s924-755y1tm338qf 01/17/20 15 01/16/2015 Robert Moreno MD [facility] [id number]-bv79etna45hm 01/17/20 15 01/16/2015 Robert Moreno MD [facility] [id number]-[id number] 01/17/20 15 01/16/2015 Robert Moreno MD [facility] [id number]-bve076m09h15 01/17/20 15 01/16/2015 Robert Moreno MD [facility] [id number] 01/17/20 15 01/16/2015 Robert Moreno MD [facility] [id number] 01/17/20 15 01/16/2015 Robert Moreno MD [facility] [id number] 01/17/20 15 01/16/2015 Robert Moreno MD [facility] [id number]-7867-v3q0067mzx53 01/17/20 15 01/16/2015 Robert Moreno MD [facility] [id number] 01/17/20 15 01/16/2015 Robert Moreno MD [facility] [id number]-mcad6at3567h 01/17/20 15 01/16/2015 Robert Moreno MD [facility] [id number]-m3wr-6n4b7el43331 01/17/20 15 01/16/2015 Robert Moreno MD [facility] [id number]-08g4-83mii50sp85u 01/17/20 15 01/16/2015 Robert Moreno MD [facility] [id number]-096l-gfa3zqf11634 01/17/20 15 01/16/2015 [facility] [id number]-fla1-h6ft4y579853 01/17/20 15 01/16/2015 Robert Moreno MD [facility]/Ps[facility] [id number]-vh83-5287lr4ebljl 01/17/20 15 01/16/2015 Robert Moreno MD [facility] 04q8x8l7-60gk-4691-20xm-0n1316d68x0m 01/17/20 15 01/16/2015 Robert Moreno MD [facility] 303ctb9d-37js-6m06-hr0e-521892db1162 01/17/20 15 01/16/2015 Robert Moreno MD [facility] 90pu067o-jd0q-8tta-3955-6l90s34zlnjv 01/17/20 15 01/16/2015 Robert Moreno MD [facility]/Ps[facility] [id number]-9833-jf7b-6ud0619h6094 01/17/20 15 01/16/2015 Robert Moreno MD [facility]/Ps[facility] 8vcy3j7l-br85-3836-srk4-22xl99792206 01/17/20 15 01/16/2015 Robert Moreno MD [facility]/Ps[facility] 40u008ub-6488-1488-q235-0nidm9s31422 01/17/20 15 01/16/2015 Robert Moreno MD [facility] 578j35o7-o5a6-1f5k-rx20-g71cf167d36n 01/17/20 15 01/16/2015 Robert Moreno MD [facility] b9j0n7qc-552j-1599-9m5e-f2p27650d535 01/17/20 15 01/16/2015 Robert Moreno MD [facility] 3o23knu9-57p1-6u8p-m344-m6t56h124871 01/17/20 15 01/16/2015 Robert Moreno MD [facility] 089k920p-4448-26z7-3499-9v98841nws8e 01/17/20 15 01/16/2015 Robert Moreno MD [facility] 7vi279u9-044r-15zv-v846-nkyv2563426e 01/17/20 15 01/16/2015 [facility] 4s5r48yu-xo33-763n-trms-m0xd2185a62c 01/17/20 15 01/16/2015 [facility] 6liq6w36-m3o6-5t75-6n6j-8z42711v4vf5 01/17/20 15 01/16/2015 Robert Moreno MD Unknown [id number] 01/17/20 15 01/16/2015 Robert Moreno MD Unknown [id number] 01/17/20 15 01/16/2015 Robert Moreno MD Unknown [id number] 01/17/20 15 01/16/2015 Robert Moreno MD Unknown [id number] 01/17/20 15 01/16/2015 Robert Moreno MD Unknown [id number] 01/17/20 15 01/16/2015 Robert Moreno MD Unknown [id number] 01/17/20 15 01/16/2015 Robert Moreno MD Unknown [id number] 01/17/20 15 01/16/2015 Robert Moreno MD Unknown [id number] 01/17/20 15 01/16/2015 Robert Moreno MD Unknown [id number] 01/17/20 15 01/16/2015 Robert Moreno MD Unknown [id number] 01/17/20 15 01/16/2015 Robert Moreno MD Unknown [id number] 01/17/20 15 01/16/2015 Robert Moreno MD Unknown [id number] 01/17/20 15 01/16/2015 Robert Moreno MD Unknown [id number] 01/17/20 15 01/16/2015 Robert Moreno MD Unknown [id number] 01/17/20 15 01/16/2015 Robert Moreno MD Unknown [id number] 01/17/20 15 01/16/2015 Robert Moreno MD Unknown [id number] 01/17/20 15 01/16/2015 Robert Moreno MD Unknown [id number] 01/17/20 15 01/16/2015 Robert Moreno MD Unknown [id number] 01/17/20 15 01/16/2015 Robert Moreno MD Unknown [id number] 01/17/20 15 01/16/2015 Robert Moreno MD [facility] [id number]-[id number] 01/17/20 15 01/16/2015 Robert Moreno MD [facility] 4664n9r8-0548-39a7-81l3-76d0t5ohi835 01/17/20 15 01/16/2015 Robert Moreno MD [facility] w352x4r9-g717-1y5p-731z-12o3q5cyh28z 01/17/20 15 01/16/2015 Robert Moreno MD [facility] 4i61d6c9-q7mo-8630-f8do-n274j8fk3z5v 01/17/20 15 01/16/2015 Robert Moreno MD [facility] [id number]-pjs1-2865-m623-35415661vx3w 01/17/20 15 01/16/2015 Robert Moreno MD [facility] 0x7b250s-f87m-023u-56x3-23ce85t77m4h 01/17/20 15 01/16/2015 Robert Moreno MD [facility] [id number]-83s3-20q1-8d37-505362w01e3h 01/17/20 15 01/16/2015 Robert Moreno MD [facility] 1t5nm54w-qb49-4o50-2jlh-x832wog9qb3n 01/17/20 15 01/16/2015 Robert Moreno MD [facility] 59x98aux-8v0l-7u9e-zm18-8l3ba1mm1l4n 01/17/20 15 01/16/2015 Robert Moreno MD [facility] 518jq9x3-46va-919g-d4dm-703h820ry031 01/17/20 15 01/16/2015 Robert Moreno MD [facility] 5563k9vn-g904-260c-47q4-187p6ij3a62t 01/17/20 15 01/16/2015 Robert Moreon MD [facility]/Ps[facility] 320i3791-3505-2g70-714t-3316zt467745 01/17/20 15 01/16/2015 Robert Moreno MD [facility] 6yg962au-w456-2id6-l360-4a690y96k1n5 01/17/20 15 01/16/2015 Robert Moreno MD [facility]/Ps[facility] 7161y908-842c-5931-9q99-0nq7k65m85pg 01/17/20 15 01/16/2015 [facility] l859jkm2-37pk-213s-x32g-75d3pc68d772 01/17/20 15 01/16/2015 Robert Moreno MD [facility] 7k561w12-112j-4yu8-1h96-3o648f813725 01/17/20 15 01/16/2015 [facility] x3c52xos-wrg0-73l3-zeux-8852g4258h54 01/17/20 15 01/16/2015 Robert Moreno MD [facility] [id number]-65d6-az2r-571z575e6193 01/17/20 15 01/16/2015 Robert Moreno MD [facility]Ps[facility] 98guo7ff-b841-3y87-5yi0-y6873513578t 01/17/20 15 01/16/2015 Robert Moreno MD Unknown [id number] 01/18/20 15 01/17/2015 Robert Moreno MD Unknown [id number] 01/18/20 15 01/17/2015 Robert Moreno MD Unknown [id number] 01/18/20 15 01/17/2015 Robert Moreno MD Unknown [id number] 01/18/20 15 01/17/2015 Robert Moreno MD Unknown [id number] 01/18/20 15 01/17/2015 Robert Moreno MD Unknown [id number] 01/18/20 15 01/17/2015 Robert Moreno MD Unknown [id number] 01/18/20 15 01/17/2015 Robert Moreno MD Unknown [id number] 01/18/20 15 01/17/2015 Robert Moreno MD Unknown [id number] 01/18/20 15 01/17/2015 Robert Moreno MD Unknown [id number] 01/18/20 15 01/17/2015 Robert Moreno MD Unknown [id number] 01/18/20 15 01/17/2015 Robert Moreno MD Unknown [id number] 01/18/20 15 01/17/2015 Robert Moreno MD Unknown [id number] 01/18/20 15 01/17/2015 Robert Moreno MD Unknown [id number] 01/18/20 15 01/17/2015 Robert Moreno MD Unknown [id number] 01/18/20 15 01/17/2015 Robert Moreno MD Unknown [id number] 01/18/20 15 01/17/2015 Robert Moreno MD Unknown [id number] 01/18/20 15 01/17/2015 Robert Moreno MD Unknown [id number] 01/18/20 15 01/17/2015 Robert Moreno MD Unknown [id number] 01/18/20 15 01/17/2015 Robert Moreno MD Unknown [id number] 01/18/20 15 01/17/2015 Robert Moreno MD Unknown [id number] 01/18/20 15 01/17/2015 Robert Moreno MD Unknown [id number] 01/18/20 15 01/17/2015 Robert Moreno MD Unknown [id number] 01/18/20 15 01/17/2015 Robert Moreno MD Unknown [id number] 01/18/20 15 01/17/2015 Robert Moreno MD Unknown [id number] 01/18/20 15 01/17/2015 Robert Moreno MD Unknown [id number] 01/18/20 15 01/17/2015 Robert Moreno MD Unknown [id number] 01/18/20 15 01/17/2015 Robert Moreno MD Unknown [id number] 01/18/20 15 01/17/2015 Robert Moreno MD Unknown [id number] 01/18/20 15 01/17/2015 Robert Moreno MD Unknown [id number] 01/18/20 15 01/17/2015 Robert Moreno MD Unknown [id number] 01/18/20 15 01/17/2015 Robert Moreno MD Unknown [id number] 01/18/20 15 01/17/2015 Robert Moreno MD Unknown [id number] 01/18/20 15 01/17/2015 Robert Moreno MD Unknown [id number] 01/18/20 15 01/17/2015 Robert Moreno MD [facility] [id number] 02/17/20 15 02/16/2015 Robert Moreno MD [facility] [id number] 02/17/20 15 02/16/2015 Robert Moreno MD [facility] [id number] 02/17/20 15 02/16/2015 Robert Moreno MD [facility] [id number] 02/17/20 15 02/16/2015 Robert Moreno MD [facility] [id number] 02/17/20 15 02/16/2015 Robert Moreno MD [facility] [id number] 02/17/20 15 02/16/2015 Robert Moreno MD [facility] [id number] 02/17/20 15 02/16/2015 Robert Moreno MD [facility] [id number] 02/17/20 15 02/16/2015 Robert Moreno MD [facility] [id number] 02/17/20 15 02/16/2015 Robert Moreno MD [facility] [id number] 02/17/20 15 02/16/2015 Robert Moreno MD [facility] [id number] 02/17/20 15 02/16/2015 Robert Moreno MD [facility] [id number] 02/17/20 15 02/16/2015 Robert Moreno MD [facility] [id number] 02/17/20 15 02/16/2015 Robert Moreno MD [facility] [id number] 02/17/20 15 02/16/2015 Robert Moreno MD [facility] [id number] 02/17/20 15 02/16/2015 Robert Moreno MD [facility] [id number] 02/17/20 15 02/16/2015 Robert Moreno MD [facility] [id number] 02/17/20 15 02/16/2015 Robert Moreno MD [facility] [id number]-[id number] 02/17/20 15 02/16/2015 Robert Moreno MD [facility] [id number] 02/17/20 15 02/16/2015 Robert Moreno MD [facility] [id number] 02/17/20 15 02/16/2015 Robert Moreno MD [facility] [id number] 02/17/20 15 02/16/2015 Robert Moreno MD [facility] [id number] 02/17/20 15 02/16/2015 Robert Moreno MD [facility] [id number] 02/17/20 15 02/16/2015 Robert Moreno MD [facility] [id number] 02/17/20 15 02/16/2015 Robert Moreno MD [facility] [id number] 02/17/20 15 02/16/2015 Robert Moreno MD [facility] [id number] 02/17/20 15 02/16/2015 Robert Moreno MD [facility] [id number] 02/17/20 15 02/16/2015 Robert Moreno MD [facility] [id number] 02/17/20 15 02/16/2015 Robert Moreno MD [facility] [id number] 02/17/20 15 02/16/2015 Robert Moreno MD [facility] [id number] 02/17/20 15 02/16/2015 Robert Moreno MD [facility] [id number] 02/17/20 15 02/16/2015 Robert Moreno MD [facility] [id number] 02/17/20 15 02/16/2015 Robert Moreno MD [facility] [id number] 02/17/20 15 02/16/2015 Robert Moreno MD [facility] [id number] 02/17/20 15 02/16/2015 Robert Moreno MD [facility] [id number] 02/28/20 15 02/27/2015 Robert Moreno MD [facility] [id number]-[id number] 02/28/20 15 02/27/2015 Robert Moreno MD [facility] [id number] 02/28/20 15 02/27/2015 Robert Moreno MD [facility] [id number] 02/28/20 15 02/27/2015 Robert Moreno MD [facility] [id number] 02/28/20 15 02/27/2015 Robert Moreno MD [facility] [id number] 02/28/20 15 02/27/2015 Robert Moreno MD [facility] [id number]-[id number] 02/28/20 15 02/27/2015 Robert Moreno MD [facility] [id number]-[id number] 02/28/20 15 02/27/2015 Robert Moreno MD [facility] [id number] 02/28/20 15 02/27/2015 Robert Moreno MD [facility] [id number]-p1x1-60909doxl458 02/28/20 15 02/27/2015 Robert Moreno MD [facility] [id number]-[id number] 02/28/20 15 02/27/2015 Robert Moreno MD [facility] 75c3w3d5-[id number]-3d2bf995qp08 02/28/20 15 02/27/2015 Robert Moreno MD [facility] [id number] 02/28/20 15 02/27/2015 Robert Moreno MD [facility] [id number]-t6eo2x9u49p0 02/28/20 15 02/27/2015 Robert Moreno MD [facility] [id number] 02/28/20 15 02/27/2015 Robert Moreno MD [facility] [id number] 02/28/20 15 02/27/2015 Robert Moreno MD [facility] [id number]-[id number] 02/28/20 15 02/27/2015 Robert Moreno MD [facility] [id number]-[id number] 02/28/20 15 02/27/2015 Robert Moreno MD [facility] [id number] 02/28/20 15 02/27/2015 Robert Moreno MD [facility] [id number]-[id number] 02/28/20 15 02/27/2015 Robert Moreno MD [facility] [id number] 02/28/20 15 02/27/2015 Robert Moreno MD [facility] [id number] 02/28/20 15 02/27/2015 Robert Moreno MD [facility] [id number] 02/28/20 15 02/27/2015 Robert Moreno MD [facility] [id number] 02/28/20 15 02/27/2015 Robert Moreno MD [facility] [id number] 02/28/20 15 02/27/2015 Robert Moreno MD [facility] [id number] 02/28/20 15 02/27/2015 Robert Moreno MD [facility] [id number] 02/28/20 15 02/27/2015 Robert Moreno MD [facility] [id number] 02/28/20 15 02/27/2015 Robert Moreno MD [facility] [id number] 02/28/20 15 02/27/2015 Robert Moreno MD [facility] [id number] 02/28/20 15 02/27/2015 Robert Moreno MD [facility] [id number] 02/28/20 15 02/27/2015 Robert Moreno MD [facility] [id number] 02/28/20 15 02/27/2015 Robert Moreno MD [facility] [id number] 02/28/20 15 02/27/2015 Robert Moreno MD folic acid refill [id number] 03/01/20 15 03/01/2015 Robert Moreno MD folic acid refill [id number] 03/01/20 15 03/01/2015 Robert Moreno MD folic acid refill [id number] 03/01/20 15 03/01/2015 Robert Moreno MD folic acid refill [id number]-[id number] 03/01/20 15 03/01/2015 Robert Moreno MD folic acid refill [id number] 03/01/20 15 03/01/2015 Robert Moreno MD folic acid refill [id number]-[id number]-e72ch38mc43a 03/01/20 15 03/01/2015 Robert Moreno MD folic acid refill [id number] 03/01/20 15 03/01/2015 Robert Moreno MD folic acid refill [id number] 03/01/20 15 03/01/2015 Robert Moreno MD folic acid refill [id number]-p372-6nr877naz4k6 03/01/20 15 03/01/2015 Robert Moreno MD folic acid refill [id number]-e3at-[id number] 03/01/20 15 03/01/2015 Robert Moreno MD folic acid refill [id number]-[id number]-[id number] 03/01/20 15 03/01/2015 Robert Moreno MD folic acid refill [id number]-[id number] 03/01/20 15 03/01/2015 Robert Moreno MD folic acid refill [id number]-s902-90ctw244q34d 03/01/20 15 03/01/2015 Robert Moreno MD folic acid refill [id number]-uo488meqo128 03/01/20 15 03/01/2015 Robert Moreno MD folic acid refill [id number]-0353-p4o5-6k063gg228t4 03/01/20 15 03/01/2015 Robert Moreno MD folic acid refill [id number]-th3x-[id number] 03/01/20 15 03/01/2015 Robert Moreno MD folic acid refill [id number]-40i8-iu473i7c8s34 03/01/20 15 03/01/2015 Robert Moreno MD folic acid refill [id number]-[id number] 03/01/20 15 03/01/2015 Robert Moreno MD folic acid refill [id number] 03/01/20 15 03/01/2015 Robert Moreno MD folic acid refill [id number]-u803i9u63v9a 03/01/20 15 03/01/2015 Robert Moreno MD folic acid refill [id number]-to0w-2c2g-u290-m78aag43213d 03/01/20 15 03/01/2015 Robert Moreno MD folic acid refill [id number]-[id number] 03/01/20 15 03/01/2015 Robert Moreno MD folic acid refill [id number] 03/01/20 15 03/01/2015 Robert Moreno MD folic acid refill [id number]-s702u1cz29m8 03/01/20 15 03/01/2015 Robert Moreno MD folic acid refill [id number]-[id number] 03/01/20 15 03/01/2015 Robert Moreno MD folic acid refill [id number]-x2iel67s1vex 03/01/20 15 03/01/2015 Robert Moreno MD folic acid refill [id number]-h9xc-0iq444x783x0 03/01/20 15 03/01/2015 Robert Moreno MD folic acid refill [id number]-pjw2p3yt7406 03/01/20 15 03/01/2015 Robert Moreno MD folic acid refill [id number] 03/01/20 15 03/01/2015 Robert Moreno MD folic acid refill [id number]-5u1c-3o28-r4k3239n5k30 03/01/20 15 03/01/2015 Robert Moreno MD folic acid refill [id number] 03/01/20 15 03/01/2015 Robert Moreno MD folic acid refill [id number] 03/01/20 15 03/01/2015 Robert Moreno MD folic acid refill [id number]-lhei-auf3a3t35nr7 03/01/20 15 03/01/2015 Robert Moreno MD [facility] [id number] 03/03/20 15 03/03/2015 Robert Moreno MD [facility] [id number] 03/03/20 15 03/03/2015 Robert Moreno MD [facility] [id number] 03/03/20 15 03/03/2015 Robert Moreno MD [facility] [id number] 03/03/20 15 03/03/2015 Robert Moreno MD [facility] REFI[facility] [id number]-[id number] 03/03/20 15 03/03/2015 Robert Moreno MD [facility] [id number]-a7h0gpi4d7of 03/03/20 15 03/03/2015 Robert Moreno MD [facility] REFI[facility] [id number] 03/03/20 15 03/03/2015 Robert Moreno MD [facility] REFI[facility] [id number]-[id number] 03/03/20 15 03/03/2015 Robert Moreno MD [facility] REFI[facility] [id number] 03/03/20 15 03/03/2015 Robert Moreno MD [facility] REFI[facility] [id number] 03/03/20 15 03/03/2015 Robert Moreno MD [facility] REFI[facility] [id number] 03/03/20 15 03/03/2015 Robert Moreno MD [facility] REFI[facility] [id number] 03/03/20 15 03/03/2015 Robert Moreno MD [facility] REFI[facility] [id number] 03/03/20 15 03/03/2015 Robert Moreno MD [facility] REFI[facility] [id number]-[id number] 03/03/20 15 03/03/2015 Robert Moreno MD [facility] [id number]-s2a5hj99u00t 03/03/20 15 03/03/2015 Robert Moreno MD [facility] REFI[facility] [id number]-[id number] 03/03/20 15 03/03/2015 Robert Moreno MD [facility] REFI[facility] [id number] 03/03/20 15 03/03/2015 Robert Moreno MD [facility] REFI[facility] [id number] 03/03/20 15 03/03/2015 Robert Moreno MD [facility] REFI[facility] [id number] 03/03/20 15 03/03/2015 Robert Moreno MD [facility] REFI[facility] [id number]-[id number] 03/03/20 15 03/03/2015 Robert Moreno MD [facility] REFI[facility] [id number] 03/03/20 15 03/03/2015 Robert Moreno MD [facility] REFI[facility] [id number] 03/03/20 15 03/03/2015 Robert Moreno MD [facility] REFILL [id number] 03/03/20 15 03/03/2015 Robert Moreno MD [facility] REFILL [id number]-lhng-[id number] 03/03/20 15 03/03/2015 Robert Moreno MD [facility] REFI[facility] [id number] 03/03/20 15 03/03/2015 Robert Moreno MD [facility] REFI[facility] [id number]-1nj836y95h0d 03/03/20 15 03/03/2015 Robert Moreno MD [facility] REFILL [id number]-170g-95z9-061nvlsh43cz 03/03/20 15 03/03/2015 Robert Moreno MD [facility] REFILL [id number]-p0io-3t80l701y82v 03/03/20 15 03/03/2015 Robert Moreno MD [facility] REFILL [id number] 03/03/20 15 03/03/2015 Robert Moreno MD [facility] REFILL [id number] 03/03/20 15 03/03/2015 Robert Moreno MD [facility] REFILL [id number] 03/03/20 15 03/03/2015 Robert Moreno MD Unknown [id number] 03/03/20 15 03/03/2015 Robert Moreno MD Unknown [id number] 03/03/20 15 03/03/2015 Robert Moreno MD Unknown [id number] 03/03/20 15 03/03/2015 Robert Moreno MD Unknown [id number] 03/03/20 15 03/03/2015 Robert Moreno MD Unknown [id number] 03/03/20 15 03/03/2015 Robert Moreno MD Unknown [id number] 03/03/20 15 03/03/2015 Robert Moreno MD Unknown [id number] 03/03/20 15 03/03/2015 Robert Moreno MD Unknown [id number] 03/03/20 15 03/03/2015 Robert Moreno MD Unknown [id number] 03/03/20 15 03/03/2015 Robert Moreno MD Unknown [id number] 03/03/20 15 03/03/2015 Robert Moreno MD Unknown [id number] 03/03/20 15 03/03/2015 Robert Moreno MD Unknown [id number] 03/03/20 15 03/03/2015 Robert Moreno MD Unknown [id number] 03/03/20 15 03/03/2015 Robert Moreno MD Unknown [id number] 03/03/20 15 03/03/2015 Robert Moreno MD Unknown [id number] 03/03/20 15 03/03/2015 Robert Moreno MD Unknown [id number] 03/03/20 15 03/03/2015 Robert Moreno MD Unknown [id number] 03/03/20 15 03/03/2015 Robert Moreno MD Unknown [id number] 03/03/20 15 03/03/2015 Robert Moreno MD Unknown [id number] 03/03/20 15 03/03/2015 Robert Moreno MD Unknown [id number] 03/03/20 15 03/03/2015 Robert Moreno MD Unknown [id number] 03/03/20 15 03/03/2015 Robert Moreno MD Unknown [id number] 03/03/20 15 03/03/2015 Robert Moreno MD Unknown [id number] 03/03/20 15 03/03/2015 Robert Moreno MD Unknown [id number] 03/03/20 15 03/03/2015 Robert Moreno MD Unknown [id number] 03/03/20 15 03/03/2015 Robert Moreno MD Unknown [id number] 03/03/20 15 03/03/2015 Robert Moreno MD Unknown [id number] 03/03/20 15 03/03/2015 Robert Moreno MD Unknown [id number] 03/03/20 15 03/03/2015 Robert Moreno MD Unknown [id number] 03/03/20 15 03/03/2015 Robert Moreno MD Unknown [id number] 03/03/20 15 03/03/2015 Robert Moreno MD Unknown [id number] 03/03/20 15 03/03/2015 Robert Moreno MD ENBREL [id number] 03/07/20 15 03/07/2015 Robert Moreno MD ENBREL [id number] 03/07/20 15 03/07/2015 Robret Moreno MD ENBREL [id number] 03/07/20 15 03/07/2015 Roebrt Moreno MD ENBREL [id number] 03/07/20 15 03/07/2015 Robert Moreno MD ENBREL [id number] 03/07/20 15 03/07/2015 Robert Moreno MD ENBREL [id number] 03/07/20 15 03/07/2015 Robert Moreno MD ENBREL [id number] 03/07/20 15 03/07/2015 Robert Moreno MD ENBREL [id number] 03/07/20 15 03/07/2015 Robert Moreno MD ENBREL [id number] 03/07/20 15 03/07/2015 Robert Moreno MD ENBREL [id number] 03/07/20 15 03/07/2015 Robert Moreno MD ENBREL [id number] 03/07/20 15 03/07/2015 Robert Moreno MD ENBREL [id number] 03/07/20 15 03/07/2015 Robert Moreno MD ENBREL [id number] 03/07/20 15 03/07/2015 Robetr Moreno MD ENBREL [id number] 03/07/20 15 03/07/2015 Robert Moreno MD ENBREL [id number] 03/07/20 15 03/07/2015 Robert Moreno MD ENBREL [id number] 03/07/20 15 03/07/2015 Robert Moreno MD ENBREL [id number] 03/07/20 15 03/07/2015 Robert Moreno MD ENBREL [id number] 03/07/20 15 03/07/2015 Robert Moreno MD ENBREL [id number] 03/07/20 15 03/07/2015 Robert Moreno MD ENBREL [id number] 03/07/20 15 03/07/2015 Robert Moreno MD ENBREL [id number] 03/07/20 15 03/07/2015 Robert Moreno MD ENBREL [id number] 03/07/20 15 03/07/2015 Robert Moreno MD ENBREL [id number] 03/07/20 15 03/07/2015 Robert Moreno MD ENBREL [id number] 03/07/20 15 03/07/2015 Robert Moreno MD ENBREL [id number] 03/07/20 15 03/07/2015 Robert Moreno MD ENBREL [id number] 03/07/20 15 03/07/2015 Robert Moreno MD ENBREL [id number] 03/07/20 15 03/07/2015 Robert Moreno MD ENBREL [id number] 03/07/20 15 03/07/2015 Robert Moreno MD ENBREL [id number] 03/07/20 15 03/07/2015 Robert Moreno MD 1 [facility] fu [id number] 03/21/20 15 03/21/2015 Robert Moreno MD 1 [facility] fu [id number] 03/21/20 15 03/21/2015 Robert Moreno MD 1 [facility] fu [id number] 03/21/20 15 03/21/2015 Robert Moreno MD 1 [facility] fu [id number] 03/21/20 15 03/21/2015 Robert Moreno MD 1 [facility] fu [id number] 03/21/20 15 03/21/2015 Robert Moreno MD 1 [facility] fu [id number] 03/21/20 15 03/21/2015 Robert Moreno MD 1 [facility] fu [id number] 03/21/20 15 03/21/2015 Robert Moreno MD 1 [facility] fu [id number] 03/21/20 15 03/21/2015 Robert Moreno MD 1 [facility] fu [id number] 03/21/20 15 03/21/2015 Robert Moreno MD 1 [facility] fu [id number] 03/21/20 15 03/21/2015 Robert Moreno MD 1 [facility] fu [id number] 03/21/20 15 03/21/2015 Robert Moreno MD 1 [facility] fu [id number] 03/21/20 15 03/21/2015 Robert Moreno MD 1 [facility] fu [id number] 03/21/20 15 03/21/2015 Robert Moreno MD 1 [facility] fu [id number] 03/21/20 15 03/21/2015 Robert Moreno MD 1 [facility] fu [id number] 03/21/20 15 03/21/2015 Robert Moreno MD 1 [facility] [id number] 03/21/20 15 03/21/2015 Robert Moreno MD 1 [facility] [id number] 03/21/20 15 03/21/2015 Robert Moreno MD 1 [facility] [id number] 03/21/20 15 03/21/2015 Robert Moreno MD 1 [facility] [id number] 03/21/20 15 03/21/2015 Robert Moreno MD 1 [facility] [id number] 03/21/20 15 03/21/2015 Robert Moreno MD 1 [facility] [id number] 03/21/20 15 03/21/2015 Robert Moreno MD 1 [facility] [id number] 03/21/20 15 03/21/2015 Robert Moreno MD 1 [facility] [id number] 03/21/20 15 03/21/2015 Robert Moreno MD 1 [facility] [id number] 03/21/20 15 03/21/2015 Robert Moreno MD 1 [facility] [id number] 03/21/20 15 03/21/2015 Robert Moreno MD 1 [facility] [id number] 03/21/20 15 03/21/2015 Robert Moreno MD 1 [facility] fu [id number] 03/21/20 15 03/21/2015 Robert Moreno MD 1 [facility] fu [id number] 03/21/20 15 03/21/2015 Robert Moreno MD 1 [facility] fu [id number] 05/29/19 16 05/29/2015 Robert Moreno MD 1 [facility] fu [id number] 05/29/19 16 05/29/2015 Robert Moreno MD 1 [facility] fu [id number] 05/29/19 16 05/29/2015 Robert Moreno MD 1 [facility] fu [id number] 05/29/19 16 05/29/2015 Robert Moreno MD 1 [facility] fu [id number] 05/29/19 16 05/29/2015 Robert Moreno MD 1 [facility] fu [id number] 05/29/19 16 05/29/2015 Robert Moreno MD 1 [facility] fu [id number] 05/29/19 16 05/29/2015 Robert Moreno MD 1 [facility] fu [id number] 05/29/19 16 05/29/2015 Robert Moreno MD 1 [facility] [id number] 05/29/19 16 05/29/2015 Robert Moreno MD 1 [facility] [id number] 05/29/19 16 05/29/2015 Robert Moreno MD 1 [facility] [id number] 05/29/19 16 05/29/2015 Robert Moreno MD 1 [facility] [id number] 05/29/19 16 05/29/2015 Robert Moreno MD 1 [facility] [id number] 05/29/19 16 05/29/2015 Robert Moreno MD 1 [facility] [id number] 05/29/19 16 05/29/2015 Robert Moreno MD 1 [facility] [id number] 05/29/19 16 05/29/2015 Robert Moreno MD 1 [facility] [id number] 05/29/19 16 05/29/2015 Robert Moreno MD 1 [facility] [id number] 05/29/19 16 05/29/2015 Robert Moreno MD 1 [facility] [id number] 05/29/19 16 05/29/2015 Robert Moreno MD 1 [facility] [id number] 05/29/19 16 05/29/2015 Robert Moreno MD 1 [facility] [id number] 05/29/19 16 05/29/2015 Robert Moreno MD 1 [facility] [id number] 05/29/19 16 05/29/2015 Robert Moreno MD 1 [facility] fu [id number] 05/29/19 16 05/29/2015 Robert Moreno MD 1 [facility] [id number] 05/29/19 16 05/29/2015 Robert Moreno MD 1 [facility] [id number] 05/29/19 16 05/29/2015 Robert Moreno MD 1 [facility] [id number] 05/29/19 16 05/29/2015 Robert Moreno MD 1 [facility] [id number] 05/29/19 16 05/29/2015 Robert Moreno MD NABUMETONE REFILL NEEDING DATE [id number] 06/01/2015 06/01/2015 Robert Moreno MD NABUMETONE REFILL NEEDING DATE [id number] 06/01/2015 06/01/2015 Robert Moreno MD NABUMETONE REFILL NEEDING DATE [id number] 06/01/2015 06/01/2015 Robert Moreno MD NABUMETONE REFILL NEEDING DATE [id number] 06/01/2015 06/01/2015 MD GIOVANNY CanasUMETONE REFILL NEEDING DATE [id number] 06/01/2015 06/01/2015 MD GIOVANNY CanasUMETONE REFILL NEEDING DATE [id number] 06/01/2015 06/01/2015 MD GIOVANNY CanasUMETONE REFILL NEEDING DATE [id number] 06/01/2015 06/01/2015 MD GIOVANNY CanasUMETONE REFILL NEEDING DATE [id number] 06/01/2015 06/01/2015 MD GIOVANNY CanasUMETONE REFILL NEEDING DATE [id number] 06/01/2015 06/01/2015 MD GIOVANNY CanasUMETONE REFILL NEEDING DATE [id number] 06/01/2015 06/01/2015 Robert Moreno MD NABUMETONE REFILL NEEDING DATE [id number] 06/01/2015 06/01/2015 MD GIOVANNY CanasUMETONE REFILL NEEDING DATE [id number] 06/01/2015 06/01/2015 Robert Moreno MD NABUMETONE REFILL NEEDING DATE [id number] 06/01/2015 06/01/2015 MD GIOVANNY CanasUMETONE REFILL NEEDING DATE [id number] 06/01/2015 06/01/2015 MD GIOVANNY CanasUMETONE REFILL NEEDING DATE [id number] 06/01/2015 06/01/2015 MD GIOVANNY CanasUMETONE REFILL NEEDING DATE [id number] 06/01/2015 06/01/2015 MD GIOVANNY CanasUMETONE REFILL NEEDING DATE [id number] 06/01/2015 06/01/2015 MD GIOVANNY CanasUMETONE REFILL NEEDING DATE [id number] 06/01/2015 06/01/2015 MD GIOVANNY CanasUMETONE REFILL NEEDING DATE [id number] 06/01/2015 06/01/2015 MD GIOVANNY CanasUMETONE REFILL NEEDING DATE [id number] 06/01/2015 06/01/2015 MD JERRICA CanasTONE REFILL NEEDING DATE [id number] 06/01/2015 06/01/2015 MD GIOVANNY CanasUMETONE REFILL NEEDING DATE [id number]-lntw-o03djcyv5623 06/01/2015 06/01/2015 MD GIOVANNY CanasUMET[facility] REFILL NEEDING DATE [id number] 06/01/2015 06/01/2015 MD GIOVANNY CanasUMETONE REFILL NEEDING DATE [id number] 06/01/2015 06/01/2015 MD GIOVANNY CanasUMETONE REFILL NEEDING DATE [id number]-[id number] 06/01/2015 06/01/2015 MD TISHA CanasE REFILL NEEDING DATE [id number] 06/01/2015 06/01/2015 MD GIOVANNY CanasUMETONE REFILL NEEDING DATE [id number] 06/01/2015 06/01/2015 Robert Moreno MD 1 [facility] [id number] 06/28/19 16 06/28/2015 Robert Moreno MD 1 [facility] fu [id number] 06/28/19 16 06/28/2015 Robert Moreno MD 1 [facility] [id number] 06/28/19 16 06/28/2015 Robert Moreno MD 1 [facility] [id number] 06/28/19 16 06/28/2015 Robert Moreno MD 1 [facility] fu [id number] 06/28/19 16 06/28/2015 Robert Moreno MD 1 [facility] [id number] 06/28/19 16 06/28/2015 Robert Moreno MD 1 [facility] [id number] 06/28/19 16 06/28/2015 Robert Moreno MD 1 [facility] fu [id number] 06/28/19 16 06/28/2015 Robert Moreno MD 1 [facility] [id number] 06/28/19 16 06/28/2015 Robert Moreno MD 1 [facility] fu [id number] 06/28/19 16 06/28/2015 Robert Moreno MD 1 [facility] fu [id number] 06/28/19 16 06/28/2015 Robert Moreno MD 1 [facility] fu [id number] 06/28/19 16 06/28/2015 Robert Moreno MD 1 [facility] [id number] 06/28/19 16 06/28/2015 Robert Moreno MD 1 [facility] [id number]-[id number] 06/28/19 16 06/28/2015 Robert Moreno MD 1 [facility] [id number]-[id number] 06/28/19 16 06/28/2015 Robert Moreno MD 1 [facility] [id number] 06/28/19 16 06/28/2015 Robert Moreno MD 1 [facility] [id number] 06/28/19 16 06/28/2015 Robert Moreno MD 1 [facility] [id number] 06/28/19 16 06/28/2015 Robert Moreno MD 1 [facility] [id number] 06/28/19 16 06/28/2015 Robert Moreno MD 1 [facility] [id number] 06/28/19 16 06/28/2015 Robert Moreno MD 1 [facility] [id number] 06/28/19 16 06/28/2015 Robert Moreno MD 1 [facility] [id number] 06/28/19 16 06/28/2015 Robert Moreno MD [facility] [id number] 06/29/19 16 06/29/2015 Robert Moreno MD [facility] [id number] 06/29/19 16 06/29/2015 Robert Moreno MD [facility] [id number] 06/29/19 16 06/29/2015 Robert Moreno MD [facility] [id number] 06/29/19 16 06/29/2015 Robert Moreno MD [facility] [id number] 06/29/19 16 06/29/2015 Robert Moreno MD [facility] [id number] 06/29/19 16 06/29/2015 Robert Moreno MD [facility] [id number] 06/29/19 16 06/29/2015 Robert Moreno MD [facility] [id number] 06/29/19 16 06/29/2015 Robert Moreno MD [facility] [id number] 06/29/19 16 06/29/2015 Robert Moreno MD [facility] [id number] 06/29/19 16 06/29/2015 Robert Moreno MD [facility] [id number] 06/29/19 16 06/29/2015 Robert Moreno MD [facility] [id number] 06/29/19 16 06/29/2015 Robert Moreno MD [facility] [id number] 06/29/19 16 06/29/2015 Robert Moreno MD [facility] [id number] 06/29/19 16 06/29/2015 Robert Moreno MD [facility] [id number] 06/29/19 16 06/29/2015 Robert Moreno MD [facility] [id number] 06/29/19 16 06/29/2015 Robert Moreno MD [facility] [id number] 06/29/19 16 06/29/2015 Robert Moreno MD [facility] [id number] 06/29/19 16 06/29/2015 Robert Moreno MD [facility] [id number] 06/29/19 16 06/29/2015 Robert Moreno MD [facility] [id number] 06/29/19 16 06/29/2015 Robert Moreno MD [facility] [id number] 06/29/19 16 06/29/2015 Robert Moreno MD [facility] [id number] 06/29/19 16 06/29/2015 Robert Moreno MD [facility] [id number] 06/29/19 16 06/29/2015 Robert Moreno MD [facility] [id number] 06/29/19 16 06/29/2015 Robert Moreno MD [facility] [id number] 06/29/19 16 06/29/2015 Robert Moreno MD 1 [facility] fu [id number] 07/31/19 16 07/31/2015 Robert Moreno MD 1 [facility] [id number] 07/31/19 16 07/31/2015 Robert Moreno MD 1 [facility] fu [id number] 07/31/19 16 07/31/2015 Robert Moreno MD 1 [facility] fu [id number] 07/31/19 16 07/31/2015 Robert Moreno MD 1 [facility] fu [id number] 07/31/19 16 07/31/2015 Robert Moreno MD 1 [facility] fu [id number] 07/31/19 16 07/31/2015 Robert Moreno MD 1 [facility] fu [id number] 07/31/19 16 07/31/2015 Robert Moreno MD 1 [facility] fu [id number] 07/31/19 16 07/31/2015 Robert Moreno MD 1 [facility] fu [id number] 07/31/19 16 07/31/2015 Robert Moreno MD 1 [facility] fu [id number] 07/31/19 16 07/31/2015 Robert Moreno MD 1 [facility] fu [id number] 07/31/19 16 07/31/2015 Robert Moreno MD 1 [facility] [id number] 07/31/19 16 07/31/2015 Robert Moreno MD 1 [facility] [id number] 07/31/19 16 07/31/2015 Robert Moreno MD 1 [facility] [id number] 07/31/19 16 07/31/2015 Robert Moreno MD 1 [facility] [id number] 07/31/19 16 07/31/2015 Robert Moreno MD 1 [facility] [id number] 07/31/19 16 07/31/2015 Robert Moreno MD 1 [facility] [id number] 07/31/19 16 07/31/2015 Robert Moreno MD 1 [facility] [id number] 07/31/19 16 07/31/2015 Robert Moreno MD 1 [facility] [id number] 07/31/19 16 07/31/2015 Robert Moreno MD 1 [facility] [id number] 07/31/19 16 07/31/2015 Robert Moreno MD 1 [facility] [id number] 07/31/19 16 07/31/2015 Robert Moreno MD Refill- Prednisone [id number] 08/01/19 16 08/01/2015 Robert Moreno MD Refill- Prednisone [id number] 08/01/19 16 08/01/2015 Robert Moreno MD Refill- Prednisone [id number] 08/01/19 16 08/01/2015 Robert Moreno MD Refill- Prednisone [id number] 08/01/19 16 08/01/2015 Robert Moreno MD Refill- Prednisone [id number] 08/01/19 16 08/01/2015 Robert Moreno MD Refill- Prednisone [id number] 08/01/19 16 08/01/2015 Robert Moreno MD Refill- Prednisone [id number] 08/01/19 16 08/01/2015 Robert Moreno MD Refill- Prednisone [id number] 08/01/19 16 08/01/2015 Robert Moreno MD Refill- Prednisone [id number] 08/01/19 16 08/01/2015 Robert Moreno MD Refill- Prednisone [id number] 08/01/19 16 08/01/2015 Robert Moreno MD Refill- Prednisone [id number] 08/01/19 16 08/01/2015 Robert Moreno MD Refill- Prednisone [id number] 08/01/19 16 08/01/2015 Robert Moreno MD Refill- Prednisone [id number] 08/01/19 16 08/01/2015 Robert Moreno MD Refill- Prednisone [id number] 08/01/19 16 08/01/2015 Robert Moreno MD Refill- Prednisone [id number] 08/01/19 16 08/01/2015 Robert Moreno MD Refill- Prednisone [id number] 08/01/19 16 08/01/2015 Robert Moreno MD Refill- Prednisone [id number] 08/01/19 16 08/01/2015 Robert Moreno MD Refill- Prednisone [id number] 08/01/19 16 08/01/2015 Robert Moreno MD Refill- Prednisone [id number] 08/01/19 16 08/01/2015 Robert Moreno MD Refill- Prednisone [id number] 08/01/19 16 08/01/2015 Robert Moreno MD Refill- Prednisone [id number] 08/01/19 16 08/01/2015 Robert Moreno MD Refill- Prednisone [id number] 08/01/19 16 08/01/2015 Robert Moreno MD Refill- Prednisone [id number] 08/01/19 16 08/01/2015 Robert Moreno MD Refill- Prednisone [id number] 08/01/19 16 08/01/2015 Robert Moreno MD Unknown [id number] 08/10/19 16 08/10/2015 Robert Moreno MD Unknown [id number] 08/10/19 16 08/10/2015 Robert Moreno MD Unknown [id number] 08/10/19 16 08/10/2015 Robert Moreno MD Unknown [id number] 08/10/19 16 08/10/2015 Robert Moreno MD Unknown [id number] 08/10/19 16 08/10/2015 Robert Moreno MD Unknown [id number] 08/10/19 16 08/10/2015 Robert Moreno MD Unknown [id number] 08/10/19 16 08/10/2015 Robert Moreno MD Unknown [id number] 08/10/19 16 08/10/2015 Robert Moreno MD Unknown [id number] 08/10/19 16 08/10/2015 Robert Moreno MD Unknown [id number] 08/10/19 16 08/10/2015 Robert Moreno MD Unknown [id number] 08/10/19 16 08/10/2015 Robert Moreno MD Unknown [id number] 08/10/19 16 08/10/2015 Robert Moreno MD Unknown [id number] 08/10/19 16 08/10/2015 Robert Moreno MD Unknown [id number] 08/10/19 16 08/10/2015 Robert Moreno MD Unknown [id number] 08/10/19 16 08/10/2015 Rboert Moreno MD Unknown [id number] 08/10/19 16 08/10/2015 Robert Moreno MD Unknown [id number] 08/10/19 16 08/10/2015 Robert Moreno MD Unknown [id number] 08/10/19 16 08/10/2015 Robert Moreno MD Unknown [id number] 08/10/19 16 08/10/2015 Robert Moreno MD Unknown [id number] 08/10/19 16 08/10/2015 Robert Moreno MD Unknown [id number] 08/10/19 16 08/10/2015 Robert Moreno MD Unknown [id number] 08/10/19 16 08/10/2015 Robert Moreno MD Unknown [id number] 08/10/19 16 08/10/2015 Robert Moreno MD 1 [facility] [id number] 08/29/19 16 08/29/2015 Robert Moreno MD 1 [facility] [id number] 08/29/19 16 08/29/2015 Robert Moreno MD 1 [facility] [id number] 08/29/19 16 08/29/2015 Robert Moreno MD 1 [facility] [id number] 08/29/19 16 08/29/2015 Robert Moreno MD 1 [facility] [id number] 08/29/19 16 08/29/2015 Robert Moreno MD 1 [facility] [id number]-6422-th5h13s4i0wr 08/29/19 16 08/29/2015 Robert Moreno MD 1 [facility] fu [id number] 08/29/19 16 08/29/2015 Robert Moreno MD 1 [facility] [id number] 08/29/19 16 08/29/2015 Robert Moreno MD 1 [facility] fu [id number] 08/29/19 16 08/29/2015 Robert Moreno MD 1 [facility] fu [id number]-cv3n7x4ekrj8 08/29/19 16 08/29/2015 Robert Moreno MD 1 [facility] [id number]-[id number] 08/29/19 16 08/29/2015 Robert Moreno MD 1 [facility] fu [id number]-s6b59d710ie3 08/29/19 16 08/29/2015 Robert Moreno MD 1 [facility] [id number] 08/29/19 16 08/29/2015 Robert Moreno MD 1 [facility] [id number]-[id number] 08/29/19 16 08/29/2015 Robert Moreno MD 1 [facility] [id number] 08/29/19 16 08/29/2015 Robert Moreno MD 1 [facility] ko0b1syq-[id number]-g61y63ktjf31 08/29/19 16 08/29/2015 Robert Moreno MD 1 [facility] 28hvu5j2-85r1-5f51-359z-4vm3970f2482 08/29/19 16 08/29/2015 Robert Moreno MD 1 [facility] t0x7h056-[id number]-8y4x-c1f8f83400g2 08/29/19 16 08/29/2015 Robert Moreno MD 1 [facility] [id number]-61p81x710757 08/29/19 16 08/29/2015 Robert Moreno MD 1 [facility] [id number]-999y-4367-79f12366m3m6 08/29/19 16 08/29/2015 Robert Moreno MD 1 [facility]/ right foot [id number]-8y1w-m65p-0pp31676r4ub 09/28/19 16 09/28/2015 Robert Moreno MD 1 [facility]/ right foot 9m0w6jxd-j549-33u8-qffy-3ul52es02851 09/28/19 16 09/28/2015 Robert Moreno MD 1 [facility]/ right foot 898x57mw-447i-4x34-y926-67k18a362r82 09/28/19 16 09/28/2015 Robert Moreno MD 1 [facility]/ right foot 4lq1t1e3-n7ov-9lii-kk70-5152epp8dcx8 09/28/19 16 09/28/2015 Robert Moreno MD 1 [facility]/ right foot 38wn88r5-58h1-46c1-rc46-p6061m82jy0d 09/28/19 16 09/28/2015 Robert Moreno MD 1 [facility]/ right foot [id number]-i43q-873tob71c46x 09/28/19 16 09/28/2015 Robert Moreno MD 1 [facility]/ right foot zje9067p-9272-9526-3hs0-18oodqv28ni0 09/28/19 16 09/28/2015 Robert Moreno MD 1 [facility]/ right foot 91nai496-9w80-6x23-zy20-188l34vr5tgj 09/28/19 16 09/28/2015 Robert Moreno MD 1 [facility]/ right foot n0l58819-96g2-4ts0-369o-zz28270a0jev 09/28/19 16 09/28/2015 Robert Moreno MD 1 [facility]/ right foot 11s1409g-87df-22x1-408u-9qq62wn16t22 09/28/19 16 09/28/2015 Robert Moreno MD 1 [facility]/ right foot 3h505z77-69u2-369u-95s4-4a70103q563d 09/28/19 16 09/28/2015 Robert Moreno MD 1 [facility]/ right foot 2t59mc62-m455-8215-b11r-3497515a401w 09/28/19 16 09/28/2015 Robert Moreno MD 1 [facility]/ right foot 4jb80yiu-48p8-324b-0f7b-61v08jk6b214 09/28/19 16 09/28/2015 Robert Moreno MD 1 [facility]/ right foot yce90p0i-2y0g-713h-k698-u20ss6in0j92 09/28/19 16 09/28/2015 Robert Moreno MD 1 [facility]/ right foot qyb377n6-3kh7-66md-9g53-wnmw91t97o74 09/28/19 16 09/28/2015 Robert Moreno MD 1 [facility]/ right foot ur391002-86zv-78d2-037b-rd3y9c463oe6 09/28/19 16 09/28/2015 Robert Moreno MD 1 [facility]/ right foot 2v3kvyp2-4194-2135-7255-86j9yg70pl31 09/28/19 16 09/28/2015 Robert Moreno MD 1 [facility]/ right foot 19vdv3g0-a487-0624-6dgt-7q7vs79t31o4 09/28/19 16 09/28/2015 Robert Moreno MD 1 [facility]/ right foot [id number]-6rq7-y0d8c25316p0 09/28/19 16 09/28/2015 Robetr Moreno MD 1 [facility] [id number]-n93nmz8q5ye4 11/08/19 16 11/08/2015 Robert Moreno MD 1 [facility] [id number]-g1n9-2lmt-6926-3h62qcul065t 11/08/19 16 11/08/2015 Robert Moreno MD 1 [facility] [id number] 11/08/19 16 11/08/2015 Robert Moreno MD 1 [facility] [id number]-aqlo-468z674079r1 11/08/19 16 11/08/2015 Robert Moreno MD 1 [facility] [id number] 11/08/19 16 11/08/2015 Robert Moreno MD 1 [facility] [id number]-[id number] 11/08/19 16 11/08/2015 Robert Moreno MD 1 [facility] [id number]-bi69-8125104gz4yx 11/08/19 16 11/08/2015 Robert Moreno MD 1 [facility] [id number] 11/08/19 16 11/08/2015 Robert Moreno MD 1 [facility] [id number]-zh02d0gut2d4 11/08/19 16 11/08/2015 Robert Moreno MD 1 [facility] [id number]-10v6-936p04vsv8wi 11/08/19 16 11/08/2015 Robert Moreno MD 1 [facility] [id number]-[id number] 11/08/19 16 11/08/2015 Robert Moreno MD 1 [facility] [id number]-3l47-3r9a07448au9 11/08/19 16 11/08/2015 Robert Moreno MD 1 [facility] [id number]-8zm6-035ac7a6b8j6 11/08/19 16 11/08/2015 Robert Moreno MD 1 [facility] dp3m10is-1i5p-932n-9z67-4t5v46e61i7o 11/08/19 16 11/08/2015 Robert Moreno MD 1 [facility] fu [id number]-q122-7127o98s17g7 11/08/19 16 11/08/2015 Robert Moreno MD 1 [facility] fu [id number]-ned0-b2j6oez218b4 11/08/19 16 11/08/2015 Robert Moreno MD 1 [facility] [id number] 11/08/19 16 11/08/2015 Robert Moreno MD Unknown [id number] 11/09/19 16 11/09/2015 Robert Moreno MD Unknown [id number] 11/09/19 16 11/09/2015 Robert Moreno MD Unknown [id number] 11/09/19 16 11/09/2015 Robert Moreno MD Unknown [id number] 11/09/19 16 11/09/2015 Robert Moreno MD Unknown [id number] 11/09/19 16 11/09/2015 Robert Moreno MD Unknown [id number] 11/09/19 16 11/09/2015 Robert Moreno MD Unknown [id number] 11/09/19 16 11/09/2015 Robert Moreno MD Unknown [id number] 11/09/19 16 11/09/2015 Robert Moreno MD Unknown [id number] 11/09/19 16 11/09/2015 Robert Moreno MD Unknown [id number] 11/09/19 16 11/09/2015 Robert Moreno MD Unknown [id number] 11/09/19 16 11/09/2015 Robert Moreno MD Unknown [id number] 11/09/19 16 11/09/2015 Robert Moreno MD Unknown [id number] 11/09/19 16 11/09/2015 Robert Moreno MD Unknown [id number] 11/09/19 16 11/09/2015 Robert Moreno MD Unknown [id number] 11/09/19 16 11/09/2015 Robert Moreno MD Unknown [id number] 11/09/19 16 11/09/2015 Robert Moreno MD Unknown [id number] 11/09/19 16 11/09/2015 Robert Moreno MD Unknown [id number] 11/09/19 16 11/09/2015 Robert Moreno MD 1 [facility] [id number] 12/11/19 16 12/11/2015 Robert Moreno MD 1 [facility] [id number] 12/11/19 16 12/11/2015 Robert Moreno MD 1 [facility] [id number]-mftu-eshdk623u0xc 12/11/19 16 12/11/2015 Robert Moreno MD 1 [facility] fu [id number]-b5qqpml2000o 12/11/19 16 12/11/2015 Robert Moreno MD 1 [facility] fu [id number] 12/11/19 16 12/11/2015 Robert Moreno MD 1 [facility] fu [id number] 12/11/19 16 12/11/2015 Robert Moreno MD 1 [facility] fu [id number] 12/11/19 16 12/11/2015 Robert Moreno MD 1 [facility] fu [id number]-s24c48585kly 12/11/19 16 12/11/2015 Robert Moreno MD 1 [facility] fu [id number]-i1n8-99q5426b8u6k 12/11/19 16 12/11/2015 Robert Moreno MD 1 [facility] [id number]-[id number]-x3w0-097fhz84u32e 12/11/19 16 12/11/2015 Robert Moreno MD 1 [facility] [id number]-71t8-17hs-[id number] 12/11/19 16 12/11/2015 Robert Moreno MD 1 [facility] fu [id number]-q8b5-6ht1vy59l8j4 12/11/19 16 12/11/2015 Robert Moreno MD 1 [facility] fu [id number]-072skt6za997 12/11/19 16 12/11/2015 Robert Moreno MD 1 [facility] fu [id number] 12/11/19 16 12/11/2015 Robert Moreno MD Unknown [id number] 12/12/19 16 12/12/2015 Robert Moreno MD Unknown [id number] 12/12/19 16 12/12/2015 Robert Moreno MD Unknown [id number] 12/12/19 16 12/12/2015 Robert Moreno MD Unknown [id number] 12/12/19 16 12/12/2015 Robert Moreno MD Unknown [id number] 12/12/19 16 12/12/2015 Robert Moreno MD Unknown [id number] 12/12/19 16 12/12/2015 Robert Moreno MD Unknown [id number] 12/12/19 16 12/12/2015 Robert Moreno MD Unknown [id number] 12/12/19 16 12/12/2015 Robert Moreno MD Unknown [id number] 12/12/19 16 12/12/2015 Robert Moreno MD Unknown [id number] 12/12/19 16 12/12/2015 Robert Moreno MD Unknown [id number] 12/12/19 16 12/12/2015 Robert Moreno MD Unknown [id number] 12/12/19 16 12/12/2015 Robert Moreno MD Unknown [id number] 12/12/19 16 12/12/2015 Robert Moreno MD Unknown [id number] 12/12/19 16 12/12/2015 Robert Moreno MD Unknown [id number] 12/12/19 16 12/12/2015 Robert Moreno MD Unknown [id number] 12/12/19 16 12/12/2015 Robert Moreno MD [facility] [id number] 12/18/2015 12/18/2015 Robert Moreno MD [facility] [id number]-[id number] 12/18/2015 12/18/2015 Robert Moreno MD [facility] [id number] 12/18/2015 12/18/2015 Robert Moreno MD [facility] [id number]-[id number] 12/18/2015 12/18/2015 Robert Moreno MD [facility] [id number]-o446-r4ja4n8e4wm0 12/18/2015 12/18/2015 Robert Moreno MD [facility] [id number] 12/18/2015 12/18/2015 MD CAROL [facility]asOT 87zq5cv3-02g7-970l-gofv-kny31so47g5e 12/18/2015 12/18/2015 MD CAROL [facility] [id number]-mb88u530mr5r 12/18/2015 12/18/2015 Robert Moreno MD [facility] 2fqf6ih1-32kg-6795-j2c2-4irq4t82psg7 12/18/2015 12/18/2015 MD CAROL [facility] [id number]-573n-0480-604d4c74wz85 12/18/2015 12/18/2015 Robert Moreno MD [facility] [id number] 12/18/2015 12/18/2015 Robert Moreno MD [facility] [id number]-s832j73b36o1 12/18/2015 12/18/2015 Robert Moreno MD [facility] [id number]-d3hi-11n9-10bl-315c9f4788s9 12/18/2015 12/18/2015 MD CAROL [facility] 9kf31wl6-56j6-8141-lo72-epeo268vuee3 12/18/2015 12/18/2015 Robert Moreno MD [facility] [id number]-5myc-orpk7it400s2 12/18/2015 12/18/2015 Robert Moreno MD 1 [facility] [id number] 01/11/20 16 01/11/2016 Robert Moreno MD 1 [facility] [id number] 01/11/20 16 01/11/2016 Robert Moreno MD 1 [facility] [id number]-j6g1grh26441 01/11/20 16 01/11/2016 Robert Moreno MD 1 [facility] [id number]-nqp0-w0c7ak0x79yg 01/11/20 16 01/11/2016 Robert Moreno MD 1 [facility] fu [id number] 01/11/20 16 01/11/2016 Robert Moreno MD 1 [facility] [id number] 01/11/20 16 01/11/2016 Robert Moreno MD 1 [facility] [id number] 01/11/20 16 01/11/2016 Rboert Moreno MD 1 [facility] [id number] 01/11/20 16 01/11/2016 Robert Moreno MD 1 [facility] [id number] 01/11/20 16 01/11/2016 Robert Moreno MD 1 [facility] [id number]-[id number] 01/11/20 16 01/11/2016 Robert Moreno MD 1 [facility] fu [id number] 01/11/20 16 01/11/2016 Robert Moreno MD 1 [facility] [id number]-k058-[id number] 01/11/20 16 01/11/2016 Robert Moreno MD 1 [facility] [id number]-0y661o57c6hp 01/11/20 16 01/11/2016 Robert Moreno MD Refill- Prednisone [id number]-[id number]-xh37-4wy7j43605j3 02/05/20 16 02/05/2016 Robert Moreno MD Refill- Prednisone [id number]-dion-[id number] 02/05/20 16 02/05/2016 Robert Moreno MD Refill- Prednisone 5717u5a6-8n65-31e7-4dv3-5n75lez4e15y 02/05/20 16 02/05/2016 Robert Moreno MD Refill- Prednisone ceq3bcs8-3l1r-0c64-f411-83373i0r3kij 02/05/20 16 02/05/2016 Robert Moreno MD Refill- Prednisone 819dn31f-d4n7-00p4-5ap7-8637jh25sh1i 02/05/20 16 02/05/2016 Robert Moreno MD Refill- Prednisone [id number]-nfe0-854w8581a9b4 02/05/20 16 02/05/2016 Robert Moreno MD Refill- Prednisone 7cby485j-5961-7unr-53fd-u1skqr253i7a 02/05/20 16 02/05/2016 Robert Moreno MD Refill- Prednisone 500e7391-mc9g-785c-s65s-4pd8691lhcn4 02/05/20 16 02/05/2016 Robert Moreno MD Refill- Prednisone [id number]-6i1b-lbn6-44269895fa38 02/05/20 16 02/05/2016 Robert Moreno MD Refill- Prednisone 84a4402e-5t6i-99s4-07nk-i903m5796393 02/05/20 16 02/05/2016 Robert Moreno MD Refill- Prednisone a067m1p8-2kx1-8qaw-9597-421684hn2b9p 02/05/20 16 02/05/2016 Robert Moreno MD Refill- Prednisone jhy4bl56-850r-62wo-du7p-2857es355yc7 02/05/20 16 02/05/2016 Robert Moreno MD 1 [facility] [id number]-njj7-q40s75h6u158 02/12/20 16 02/12/2016 Robert Moreno MD 1 [facility] 9529x8vs-732g-7538-kk9k-e340ftkvh0d7 02/12/20 16 02/12/2016 Robret Moreno MD 1 [facility] fu 32eqqmw3-[id number]-g6tz-ze990e30z489 02/12/20 16 02/12/2016 Robert Moreno MD 1 [facility] fu [id number] 02/12/20 16 02/12/2016 Robert Moreno MD 1 [facility] fu tg59tnya-76ws-[id number] 02/12/20 16 02/12/2016 Robert Moreno MD 1 [facility] [id number]-[id number] 02/12/20 16 02/12/2016 Robert Moreno MD 1 [facility] [id number]-[id number]-[id number] 02/12/20 16 02/12/2016 Robert Moreno MD 1 [facility] [id number]-c3b3-512a-5v3j-7160db82i699 02/12/20 16 02/12/2016 Robert Moreno MD 1 [facility] [id number]-u95x-49t122odi6r0 02/12/20 16 02/12/2016 Robert Moreno MD 1 [facility] [id number] 02/12/20 16 02/12/2016 Robert Moreno MD 1 [facility] [id number] 02/12/20 16 02/12/2016 Robert Moreno MD Remicade [id number]-j30i-82j1-28ij-f2g8979j650x 02/13/20 16 02/13/2016 Robert Moreno MD Remicade [id number]-3962770u1ulc 02/13/20 16 02/13/2016 Robert Moreno MD Remicade [id number]-39g6-yci1-98lv358w4691 02/13/20 16 02/13/2016 Robert Moreno MD Remicade 0a1sngpn-225k-0mpu-5ft7-94wsk18sf279 02/13/20 16 02/13/2016 Robert Moreno MD Remicade [id number]-cst4-j2c0i3cfr209 02/13/20 16 02/13/2016 Robert Moreno MD Remicade 6n77m9t1-83ht-8988-978z-9dv6127277m4 02/13/20 16 02/13/2016 Robert Moreno MD Remicade 1280rq73-mq6e-6l3d-k296-l6sz31369m59 02/13/20 16 02/13/2016 Robert Moreno MD Remicade xsmh7r69-88w3-1458-g6fs-[id number] 02/13/20 16 02/13/2016 Robert Moreno MD [facility] [id number] 02/13/20 16 02/13/2016 Robert Moreno MD [facility] [id number] 02/13/20 16 02/13/2016 Robert Moreno MD 1 [facility] fu [id number] 03/08/20 16 03/08/2016 Robert Moreno MD 1 [facility] fu [id number] 03/08/20 16 03/08/2016 Robert Moreno MD 1 [facility] fu [id number] 03/08/20 16 03/08/2016 Robert Moreno MD 1 [facility] fu [id number] 03/08/20 16 03/08/2016 Robert Moreno MD 1 [facility] fu [id number] 03/08/20 16 03/08/2016 Robert Moreno MD 1 [facility] fu [id number] 03/08/20 16 03/08/2016 Robert Moreno MD 1 [facility] fu [id number] 03/08/20 16 03/08/2016 Robert Moreno MD 1 [facility] [id number] 03/08/20 16 03/08/2016 Robert Moreno MD 1 [facility] [id number] 03/08/20 16 03/08/2016 Robert Moreno MD 1 [facility] [id number] 04/04/20 16 04/04/2016 Robert Moreno MD 1 [facility] [id number] 04/04/20 16 04/04/2016 Robert Moreno MD 1 [facility] [id number] 04/04/20 16 04/04/2016 Robert Moreno MD 1 [facility] [id number] 04/04/20 16 04/04/2016 Robert Moreno MD 1 [facility] [id number] 04/04/20 16 04/04/2016 Robert Moreno MD 1 [facility] [id number] 04/04/20 16 04/04/2016 Robert Moreno MD 1 [facility] [id number] 04/04/20 16 04/04/2016 Robert Moreno MD 1 [facility] [id number] 04/04/20 16 04/04/2016 Robert Moreno MD Unknown [id number] 04/24/19 17 04/24/2016 Robert Moreno MD Unknown [id number] 04/24/19 17 04/24/2016 Robert Moreno MD Unknown [id number] 04/24/19 17 04/24/2016 Robert Moreno MD Unknown [id number] 04/24/19 17 04/24/2016 Robert Moreno MD Unknown [id number] 04/24/19 17 04/24/2016 Robert Moreno MD Unknown [id number] 04/24/19 17 04/24/2016 Robert Moreno MD Unknown [id number] 04/24/19 17 04/24/2016 Robert Moreno MD 1 [facility] [id number] 05/03/19 17 05/03/2016 Robert Moreno MD 1 [facility] fu [id number] 05/03/19 17 05/03/2016 Robert Moreno MD 1 [facility] fu [id number] 05/03/19 17 05/03/2016 Robert Moreno MD Unknown [id number] 05/03/19 17 05/03/2016 Robert Moreno MD Unknown [id number] 05/03/19 17 05/03/2016 Robert Moreno MD Unknown [id number] 05/03/19 17 05/03/2016 Robert Moreno MD Unknown [id number] 05/03/19 17 05/03/2016 Robert Moreno MD Unknown [id number] 05/03/19 17 05/03/2016 Robert Moreno MD Unknown [id number] 05/03/19 17 05/03/2016 Robert Moreno MD Unknown [id number] 05/03/19 17 05/03/2016 Robert Moreno MD Unknown [id number] 05/04/19 17 05/04/2016 Robert Moreno MD Unknown [id number] 05/04/19 17 05/04/2016 Robert Moreno MD Unknown [id number] 05/04/19 17 05/04/2016 Robert Moreno MD Unknown [id number] 05/04/19 17 05/04/2016 Robert Moreno MD Unknown [id number] 05/04/19 17 05/04/2016 Robert Moreno MD Unknown [id number] 05/07/19 17 05/07/2016 Robert Moreno MD Unknown [id number] 05/07/19 17 05/07/2016 Robert Moreno MD Unknown [id number] 05/07/19 17 05/07/2016 Robert Moreno MD Unknown [id number] 05/07/19 17 05/07/2016 Robert Moreno MD 1 [facility] fu [id number] 06/03/19 17 06/03/2016 Robert Moreno MD 1 [facility] fu [id number] 06/03/19 17 06/03/2016 Robert Moreno MD ER Visit/Hand inflammation [id number] 06/05/2016 06/05/2016 Robret Moreno Procedures No Data Provided for This Section Assessment and Plan No Data Provided for This Section Plan of Care No Data Provided for This Section Social History Social History Date Source Social History ElementQualifiersDate Rep orted Diet: no. Jun 03, 2016 Tobacco Use: . Are you a:: never smoker Jun 03, 2016 Marital Status: . Jun 03, 2016 Caffeine: yes. 1-2 a day Jun 03, 2016 Exercise: yes. walking Jun 03, 2016 Alcohol: no. 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
--- OUTSIDE RECORDS SUMMARY | 2019-11-20 18:12 | XMS REPORT | Continuity of Care Document ---
Author Author [facility] t Organization [facility] Address [address] [place] [address] Phone Unavailable Care Team Providers Care Custom Stock Maker Name Role Phone MD COLIN WHITMORE PCP Adri WHITMORE Attphys Unavailable Adri WHITMORE Admphys Unavailable Payers Payer Name Policy Type Policy Number Effective Date Expiration Date Gonzalo Blackman o [id number] 2007 00:00:00 [facility] Problems Condition Name Condition Details Condition Category Status Onset Date Resolution Date Last Treatment Date Treating Clinician Comments Source Abdominal pain Problem Active C [facility] Pulmonary embolism Problem Active [facility] Allergies, Adverse Reactions, Alerts Allergy Name Allergy Type Status Severity Reaction(s) Onset Date Inacti ve Date Treating Clinician Comments Source Sulfamethoxazole-Trimethoprim Propensity to adverse reactions Activ e Anaphylaxis 2017-09-22 00:00:00 [facility] Infliximab Propensity to adverse reactions Active [facility] Allergy to substance Active TONGUE SW ELLED 2017-01-07 00:00:00 [facility] Trimethoprim Allergy to substance Active TONGUE SWELLED 2016-12 00:00:00 [facility] Infliximab Allergy to substance Active HIVES 2017-01-07 00:00:00 [facility] Social History Social Habit Start Date Stop Date Quantity Comments Source Sex Assigned At [facility] Smoking Status Start Date Stop Date Source Never smoker [facility] Medications Ordered Medication Name Filled Medication Name Start Date Stop Da te Current Medication? Ordering Clinician Indication Dosage Frequency Signature (SIG) Comments Components Source ADALIMUMAB (HUMIRA SUBQ) 2017-09-22 13:59:27 Yes Inject subcutaneously. [facility] oxybutynin (DITROPAN XL) 15 MG 24 hr tablet 2017-09-22 09:25:24 Yes 15mg QD Take 15 mg by mouth daily. C [facility] predniSONE (DELTASONE) 5 MG tablet 2017-09-22 09:25:24 Yes 5mg QD Take 5 mg by mouth daily. [facility] folic acid (FOLVITE) 1 MG tablet 2017-09-22 09:25:23 Yes 1mg QD Take 1 mg by mouth daily. [facility] HYDROcodone-acetaminophen (NORCO 7.5-325) 7.5-325 mg per tab let 2017-09-22 09:25:23 Yes 1{tbl} Take 1 tab let by mouth every 6 (six) hours as needed for Pain. [facility] ibuprofen (ADVIL,MOTRIN) 600 MG tablet 2017-09-22 09:25:23 Yes 600mg Take 600 mg by mouth every 6 (six) hours as needed for Pain. [facility] levothyroxine (SYNTHROID, LEVOTHROID) 200 MCG tablet 2 09:25:23 Yes 200ug Take 200 mcg by mouth Every morning on a n empty stomach. [facility] methotrexate 2.5 MG tablet 2017-09-22 09:25:23 Yes Q7D Take by mouth once a week. [facility] omeprazole-sodium bicarbonate (ZEGERID) 40-1.1 mg-gram per c apsule 2017-09-22 09:25:23 Yes 1{capsule} Take 1 ca psule by mouth every morning before breakfast. [facility] apremilast (OTEZLA) 30 mg Tab 2017-09-22 09:25:23 Yes 30mg Q.5D Take 30 mg by mouth 2 (two) times daily. [facility] buPROPion (WELLBUTRIN) 100 MG tablet 2017-09-22 09:25:22 Ye s 100mg Q.5D Take 100 mg by mouth 2 (two) times daily. [facility] Duloxetine Hcl (Cymbalta) 30 Mg CAPSULE. Duloxetine Hcl (Cymbalta) 30 Mg CAPSULE. Yes 60 Daily [facility] Folic Acid Folic Acid Yes 1 Daily [facility] Gabapentin Gabapentin Yes 600 Every 8 Hours [facility] Levothyroxine Sodium Levothyroxine Sodium Yes 200 Daily@0600 [facility] Methotrexate Sodium (Methotrexate) 2.5 Mg TABLET Metho trexate Sodium (Methotrexate) 2.5 Mg TABLET Yes 20 Wkly [facility] Oxybutynin Chloride (Oxybutynin Chloride Er) 15 Mg TAB .ER.24 Oxybutynin Chloride (Oxybutynin Chloride Er) 15 Mg TAB.ER.24 Yes 15 Daily [facility] Tizanidine Hcl Tizanidine Hcl Yes 4 Bedtime [facility] Ibuprofen Ibuprofen 2019-11-05 00:00:00 No 800 Daily as needed for Pain [facility] Lisinopril Lisinopril 2019-11-05 00:00:00 No 10 Twi ce A Day [facility] Meloxicam (Mobic) 15 Mg TABLET Meloxicam (Mobic) 15 Mg TABLET 2019-11-05 00:00:00 No 15 Daily [facility] Bupropion Bupropion 2019-11-04 00:00:00 No Daily [facility] Folic Acid Folic Acid 2019-11-04 00:00:00 No 1 Anamika ly [facility] Hydrocodone Bit/Acetaminophen (Hydrocodon-Acetaminoph 7.5-325) 1 Each TABLET Hydrocodone Bit/Acetaminophen (Hydrocodon-Acetaminoph 7.5-325) 1 Each TABLET 2019-11-04 00:00:00 No As Needed [facility] Prednisone Prednisone 2019-11-04 00:00:00 No 5 Anamika ly [facility] Vital Signs Vital Name Observation Time Observation Value Comments Source Body Temperature 2019-11-05 11:30:00 98.2 [degF] [facility] BMI (Body Mass Index) 2019-11-04 07:10:00 48.5 kg/m2 [facility] Weight 2019-11-04 06:15:00 291.31 [lb_av] [facility] Procedures Procedure Date / Time Performed Performing Clinician Mj ordaz Computed tomography of abdomen and pelvis with contrast 00:00:00 [facility] Computed tomography of chest with contrast 2019-11-04 00:00:00 [facility] X-ray of chest, two views 2019-10-25 00:00:00 [facility] Plan of Care Planned Activity Planned Date Details Comments Source Instructions Pulmonary Embolism [facility] Encounters Start Date/Time End Date/Time Encounter Type Admission Type [facility] Care Department Encounter ID Source 2019-11-04 04:55:00 2019-11-05 15:58:00 Discharged Inpatient 1 COLIN WHITMORE [facility] [id number] [facility] 2019-10-25 13:51:00 2019-10-25 13:51:00 Registered Clinic 3 [facility] [id number] [facility] Results Test Description Test Time Test Comments Results Result Comments Source CHEST SINGLE (PORTABLE) 2019-11-05 08:52:00 [place] [address] Patient Name: LAURENCE HOGUE MR #: [id number] : 1955 Age/Sex: 64/F Req #: [id number] Adm Physician: COLIN WHITMORE MD Ordered by: COLIN WHITMORE MD Report #: [id number] Location: MED/SURG2 Room/Bed: 200 Procedure: [id number] DX/CHEST SINGLE (PORTABLE) Exam Date: 11/05/19 Exam Time: 0832 REPORT STATUS: Signed EXAM: CHEST SINGLE (PORTABLE) DATE: 11/05/2019 8:32 AM INDICATION: Possible pneumonia COMPARISON: CT chest with contrast from 11/04/2019 FINDINGS: The trachea is midline. The lungs are symmetrically expanded without evidence for large fo delvin consolidation, pneumothorax, or significant pleural effusion. The cardiomediastinal is magnified by technique but otherwise unremarkable. The pulmonary vasculature is not engorged. No acute osseous abnormality is identified. The surrounding soft tissues are unremarkable. IMPRESSION: No acute cardiopulmonary process identified. Signed by: Dr. Danyel Noel MD on 11/05/2019 8:53 AM Dictated By: DANYEL NOEL MD 0853 Transcribed By: SEAN on 11/05/19 0853 COPY TO: COLIN WHITMORE MD Blood leukocytes automated count (number/volume) 2019-11-05 05:50:00 Test Item White Blood Count (test code = 6690-2) 13.51 4.8-10.8 [facility] erythrocytes automated count (number/volume)2019-11-05 05:50:00* Test Item Value Reference Range Interpretation Comments Red Blood Count (test code = 789-8) 3.94 3.6-5.1 [facility] hemoglobin measurement (moles/volume)2019-11-05 05:50:00* Test Item Value Reference Range Interpretation Comments Hemoglobin (test code = 61988-7) 11.3 12.0-16.0 [facility] blood hematocrit (volume fraction)2019-11-05 05:50:00* Test Item Value Reference Range Interpretation Comments Hematocrit (test code = 4544-3) 35.7 34.2-44.1 [facility] HospitalAutomated erythrocyte mean corpuscular orhlji0839-86-50 05:50:00* Test Item Value Reference Range Interpretation Comments Mean Corpuscular Volume (test code = 787-2) 90.6 81-99 [facility] Hospital[facility] erythrocyte mean corpuscular hemoglobin (mass per erythrocyte)2019-11-05 05:50:00* Test Item Value Reference Range Interpretation Comments Mean Corpuscular Hemoglobin (test code = 785-6) 28.7 28-32 [facility] Hospital[facility] erythrocyte mean corpuscular hemoglobin concentration measurement (mass/volume)2019-11-05 05:50:00* Test Item Value Reference Range Interpretation Comments Mean Corpuscular Hemoglobin Concent (test code = 786-4) 31.7 31-35 [facility] HospitalRDW PciTd-Tvf6143-98-17 05:50:00* Test Item Value Reference Range Interpretation Comments Red Cell Distribution Width (test code = 60013-1) 15.9 11.7 -14.4 [facility] HospitalAutomated blood platelet count (count/volume)2019-11-05 05:50:00* Test Item Value Reference Range Interpretation Comments Platelet Count (test code = 777-3) 339 140-360 [facility] blood segmented neutrophil count as percentage of total tsngvcrith0783-68-87 05:50:00* Test Item Value Reference Range Interpretation Comments Neutrophils (%) (Auto) (test code = 91036-9) 74.7 38.7-80.0 [facility] HospitalAutomated blood lymphocyte count as percentage ot total keefesqmnf1534-12-35 05:50:00* Test Item Value Reference Range Interpretation Comments Lymphocytes (%) (Auto) (test code = 736-9) 17.8 18.0-39.1 [facility] HospitalAutformerly [facility] hospitaled blood monocyte count as percentage of total yncnvoicmi4064-87-90 05:50:00* Test Item Value Reference Range Interpretation Comments Monocytes (%) (Auto) (test code = 5905-5) 7.0 4.4-11.3 [facility] HospitalAutomated blood eosinophil count as percentage of total hnyldhjyry7556-23-11 05:50:00* Test Item Value Reference Range Interpretation Comments Eosinophils (%) (Auto) (test code = 713-8) 0.0 0.0-6.0 [facility] HospitalAutomated blood basophil count as percentage of total eqjosujueb3801-37-81 05:50:00* Test Item Value Reference Range Interpretation Comments Basophils (%) (Auto) (test code = 706-2) 0.1 0.0-1.0 [facility] HospitalFluoroscopic procedure less than one hour qozkjrai3647-65-58 05:50:00* Test Item Value Reference Range Interpretation Comments IM GRANULOCYTES % (test code = IM GRANULOCYTES %) 0.4 0.0- 1.0 [facility] HospitalAutomated blood neutrophil count 2019-11-05 05:50:00* Test Item Value Reference Range Interpretation Comments Neutrophils # (Auto) (test code = 751-8) 10.1 2.1-6.9 [facility] HospitalBlood lymphocytes count (number/volume) 2019-11-05 05:50:00* Test Item Value Reference Range Interpretation Comments Lymphocytes # (Auto) (test code = 27028-8) 2.4 1.0-3.2 [facility] HospitalBlood monocytes automated count (number/volume)2019-11-05 05:50:00* Test Item Value Reference Range Interpretation Comments Monocytes # (Auto) (test code = 742-7) 0.9 0.2-0.8 [facility] HospitalAutomated blood eosinophil count 2019-11-05 05:50:00* Test Item Value Reference Range Interpretation Comments Eosinophils # (Auto) (test code = 711-2) 0.0 0.0-0.4 [facility] HospitalAutomated blood basophil count (count/volume)2019-11-05 05:50:00* Test Item Value Reference Range Interpretation Comments Basophils # (Auto) (test code = 704-7) 0.0 0.0-0.1 [facility] HospitalFluoroscopic procedure less than one hour kqmomapx1102-49-89 05:50:00* Test Item Value Reference Range Interpretation Comments Absolute Immature Granulocyte (auto (minnie t code = Absolute Immature Granulocyte (auto) 0.06 0-0.[address] [facility] or plasma sodium measurement (moles/volume)2019-11-05 05:50:00* Test Item Value Reference Range Interpretation Comments Sodium Level (test code = 2951-2) 139 136-[address] [facility] [facility] or plasma potassium measurement (moles/volume)2019-11-05 05:50:00* Test Item Value Reference Range Interpretation Comments Potassium Level (test code = 2823-3) 4.2 3.5-5.[address] [facility] or plasma chloride measurement (moles/volume)2019-11-05 05:50:00* Test Item Value Reference Range Interpretation Comments Chloride Level (test code = 2075-0) 108 98-[address] [facility] or plasma carbon dioxide, total measurement (moles/volume)2019-11-05 05:50:00* Test Item Value Reference Range Interpretation Comments Carbon Dioxide Level (test code = 2028-9) 26 22-[address] [facility] or plasma anion [id number] 05:50:00* Test Item Value Reference Range Interpretation Comments Anion Gap (test code = 32991-3) 9.2 8-[address] [facility] [facility] or plasma urea nitrogen measurement (mass/volume)2019-11-05 05:50:00* Test Item Value Reference Range Interpretation Comments Blood Urea Nitrogen (test code = 3094-0) 22 7-[address] [facility] or plasma creatinine measurement (mass/volume)2019-11-05 05:50:00* Test Item Value Reference Range Interpretation Comments Creatinine (test code = 2160-0) 1.81 0.57-1.[address] [facility] or plasma urea nitrogen/creatinine mass vvhst7834-74-79 05:50:00* Test Item Value Reference Range Interpretation Comments BUN/Creatinine Ratio (test code = 3097-3) 12 6-25 [facility] HospitalEstimated glomerular filtration rate (GFR) drjjmgdfdbpws9285-04-38 05:50:00* Test Item Value Reference Range Interpretation Comments Estimat Glomerular Filtration Rate (test code = 420585279) 28 >60 Ranges were taken from the National Kidney Disease Education Program and the [facility] literature.Reference ranges:60 or greater: Phaivl38-90 ( for 3 consecutive months): Chronic kidney disease 15 or less: Kidney failureNacogdoches Memorial HospitalGlucose scgwtkhjkzc5145-61-59 05:50:00* Test Item Value Reference Range Interpretation Comments Glucose Level (test code = VFS8229) 149 74-[address] [facility] or plasma calcium measurement (mass/volume)2019-11-05 05:50:00* Test Item Value Reference Range Interpretation Comments Calcium Level (test code = 42671-1) 8.3 8.4-10.[address] [facility] [facility] or plasma total bilirubin measurement (mass/volume)2019-11-05 05:50:00* Test Item Value Reference Range Interpretation Comments Total Bilirubin (test code = 1975-2) 0.4 0.2-1.2 [facility] HospitalFluoroscopic procedure less than one hour gyqokrsa3061-07-34 05:50:00* Test Item Value Reference Range Interpretation Comments Aspartate Amino Transf (AST/SGOT) (test code = Aspartate Amino Transf (AST/SGOT)) 18 5-[address] [facility]rum or plasma alanine aminotransferase measurement (enzymatic activity/volume)2019-11-05 05:50:00* Test Item Value Reference Range Interpretation Comments Alanine Aminotransferase (ALT/SGPT) (test code = 1742-6) 10 0-[address] [facility] or plasma protein measurement (mass/volume)2019-11-05 05:50:00* Test Item Value Reference Range Interpretation Comments Total Protein (test code = 2885-2) 6.5 6.5-8.[address] [facility] or plasma albumin measurement (mass/volume)2019-11-05 05:50:00* Test Item Value Reference Range Interpretation Comments Albumin (test code = 1751-7) 2.8 3.5-5.0 [facility] HospitalPlasma globulin measurement (mass/volume) 2019-11-05 05:50:00* Test Item Value Reference Range Interpretation Comments Globulin (test code = 41704-8) 3.7 2.3-3.[address] or plasma albumin/globulin mass tkwtc1576-02-15 05:50:00* Test Item Value Reference Range Interpretation Comments Albumin/Globulin Ratio (test code = 1759-0) 0.8 0.8-2.[address] or plasma alkaline phosphatase measurement (enzymatic activity/volume)2019-11-05 05:50:00* Test Item Value Reference Range Interpretation Comments Alkaline Phosphatase (test code = 6768-6) 76 40-[address] [facility] or plasma creatine kinase measurement (enzymatic activity/volume)2019-11-04 20:10:00* Test Item Value Reference Range Interpretation Comments Creatine Kinase (test code = 2157-6) 49 29-[address] [facility] [facility] or plasma creatine kinase MB measurement (mass/volume)2019-11-04 20:10:00* Test Item Value Reference Range Interpretation Comments Creatine Kinase MB (test code = 11599-9) 1.20 0-5.0 [facility] HospitalTroponin I measurement by highly sensitive enzyme mxwxpqcwarb2065-24-90 20:10:00* Test Item Value Reference Range Interpretation Comments Troponin I (test code = 75456-6) 0.001 0-0.300 [facility] HospitalCT CHEST [id number] 04:48:00 [facility] [address] [place] [address] Patient Name: LAURENCE HOGUE MR #: [id number] : 1955 Age/Sex: 64/F Req #: [id number] Adm Physician: Ordered by: MAURICIO GOMEZ DO Report #: [id number] Location: ER Room/Bed: Procedure: [id number] CT/CT CHEST W Exam Date: 11/04/19 Exam Time: 0320 REPORT STATUS: Signed EXAMINATION: CT of the ches t with contrast, PE protocol. TECHNIQUE: Spiral CT images of the chest wer e performed from the lung apices through the level of the adrenal glands after the IV administration of 150 cc of Isovue-370. Thin section reconstructions were obtained with special concentration on the pulmonary arteries. Coronal and sagittal reformatted images were also performed COMPARISON: <none> CLINICAL HISTORY:Shortness of breath for one week DISCUSSION: Lungs: Multiple filling defects involving segmental arteries of the right upper (superior and posterior segments), right middle (medial and lateral segm ents) and right lower lobe (lateral and posterior basal segments). Lungs are e ssentially clear. No consolidation, masses or nodules. Airways are clear, with out endobronchial lesions. Pleura: <There is no evidence of pleural effusion or pneumothorax.> Heart and mediastinum: Thyroid is unremarkable. Heart size is normal. No pericardial effusion. Aorta is nonaneurysmal. Main pulmonary artery measures 2.8 cm, normal. Lymph nodes: No mediastinal, hilar or axillary adenopathy. Abdomen: Please see CT abdomen and pelvis performed same date for further detail. Bones and soft tissues: No aggressive lytic or suspicious focal sclerotic lesion. Soft tissues are grossly unremarkable. IMPRESSION: 1. Multiple pulmonary emboli involving segmental arteries of the right upper, right middle and right lower lobe. 2. Lungs are essentially clear, without consolidation, masses or nodules. Signed by: Dr. Mathew Angel M.D. on 11/04/2019 4:56 AM Dictated By: MATHEW ANGEL MD Transcribed By: SEAN on 11/04/19455 COPY TO: MAURICIO GOMEZ DO CT ABDOMEN/PELVIS Q0321-03-90 04:18:00 [place] [address] Patient Name: LAURENCE HOGUE MR #: [id number] : 1955 Age/Sex: 64/F Req #: [id number] Adm Physician: Ordered by: MAURICIO GOMEZ DO Report #: [id number] Location: ER Room/Bed: Procedure: [id number] CT/CT ABDOMEN/P SEBAS W Exam Date: 11/04/19 Exam Time: 0320 REPORT STATUS: Signed EXAMINATION: CT of the abdomen and pelvis with contrast. TECHNIQUE: Spiral CT images of e abdomen and pelvis were performed from the lung bases to the lesser trochant ers after the intravenous administration of 100 cc of Isovue 370 and the oral administration of water. Coronal and sagittal reformatted images were obtaine d. COMPARISON: None. CLINICAL HISTORY:Left lower quadrant pain for on e day DISCUSSION: ABDOMEN/PELVIS: LOWER THORAX:Please see CT chest performed same day for further details HEPATOBILIARY: No focal hepat ic lesions No intra or extrahepatic biliary ductal dilation. GALLBLADDER : No radio-opaque stones or sludge. No wall thickening. 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 Fat ty replacement of the pancreas. ADRENALS: No adrenal nodules. KIDNEY S/URETERS: Symmetrical renal enhancement. No renal or ureteral calculi. No h ydronephrosis, hydroureter or evidence of obstruction. Well-circumscribed flui d density lesions in the left renal sinus likely represent peripelvic cysts. Moderate bilateral perinephric stranding and mild bilateral perinephric fluid. No definite cortical striations are identified. No solid or cystic lesions. PELVIC ORGANS/BLADDER: Bladder and uterus are unremarkable. No adnexal mass es. PERITONEUM/RETROPERITONEUM: No free air or fluid. LYMPH NODES: No intra-abdominal, retroperitoneal, pelvic or inguinal lymphadenopathy. VES SELS: The celiac trunk,superior and inferior mesenteric and bilateral renal a rteries are patent The portal, superior mesenteric and splenic veins are desai nt. GI TRACT: Small hiatal hernia. No bowel dilation or evidence of obstruc tion. No pericolonic inflammatory changes. BONES AND SOFT TISSUE: No aggr essive lytic or suspicious sclerotic lesions. Multilevel degenerated disks in the lower thoracic and to a lesser degree upper lumbar spine. Soft tissues are grossly unremarkable. IMPRESSION: 1. Moderate bilateral perinephr ic stranding and mild bilateral perinephric fluid. Although no definite cortic al striations are identified to suggest pyelonephritis, correlate with urinaly sis for diarrhea and possibility of ascending infection. Signed by: Dr. Caro Angel M.D. on 11/04/2019 4:45 AM Dictated By: MATHEW Phipps 4 Transcribed By: SEAN on 11/04/19444 COPY TO: MAURICIO GOMEZ DO Urine color exjnvnlwkfnho2812-06-19 01:10:00* Test Item Value Reference Range Interpretation Comments Urine Color (test code = 5778-6) YELLOW YELLOW [facility] HospitalU[facility] sswbudq3577-37-08 01:10:00* Test Item Value Reference Range Interpretation Comments Urine Clarity (test code = 33769-2) CLEAR CLEAR [facility] gravity of Urine by Test strip 2019-11-04 01:10:00* Test Item Value Reference Range Interpretation Comments Urine Specific [place] (test code = 5811-5) 1.015 1.010-1.02 5 [facility] HospitalU[facility] pH measurement by automated test [id number] 01:10:00* Test Item Value Reference Range Interpretation Comments Urine pH (test code = 86204-5) 6 5-7 [facility] HospitalUrine leukocyte esterase detection by tmveqoha1671-15-31 01:10:00* Test Item Value Reference Range Interpretation Comments Urine Leukocyte Esterase (test code = 5799-2) NEGATIVE NEGATIVE [facility] HospitalUrine nitrite vqnwgnchv9895-09-49 01:10:00* Test Item Value Reference Range Interpretation Comments Urine Nitrite (test code = 45155-6) NEGATIVE NEGATIVE [facility] HospitalUrine protein measurement by test strip (mass/volume)2019-11-04 01:10:00* Test Item Value Reference Range Interpretation Comments Urine Protein (test code = 5804-0) 1+ NEGATIVE [facility] HospitalUrine glucose zxdfajllv2160-66-99 01:10:00* Test Item Value Reference Range Interpretation Comments Urine Glucose (UA) (test code = 2349-9) NEGATIVE NEGATIVE [facility] HospitalUrine ketones detection by automated test [id number] 01:10:00* Test Item Value Reference Range Interpretation Comments Urine Ketones (test code = 27422-8) NEGATIVE NEGATIVE [facility] HospitalUrine urobilinogen measurement by test strip (mass/volume)2019-11-04 01:10:00* Test Item Value Reference Range Interpretation Comments Urine Urobilinogen (test code = 23786-2) 0.2 0.2-1 [facility] HospitalU[facility] total bilirubin measurement (mass/volume)2019-11-04 01:10:00* Test Item Value Reference Range Interpretation Comments Urine Bilirubin (test code = 1978-6) NEGATIVE NEGATIVE [facility] HospitalUrine erythrocytes zhubnkqlv8616-77-12 01:10:00* Test Item Value Reference Range Interpretation Comments Urine Blood (test code = 11680-2) TRACE NEGATIVE [facility] sediment leukocyte count by microscopy (number/high power field)2019-11-04 01:10:00* Test Item Value Reference Range Interpretation Comments Urine WBC (test code = 5821-4) 6-10 0-5 [facility] HospitalErythrocytes detection in urine sediment by light [id number] 01:10:00* Test Item Value Reference Range Interpretation Comments Urine RBC (test code = 57471-2) 6-10 0-5 [facility]Bacteria detection in urine sediment by light [id number] 01:10:00* Test Item Value Reference Range Interpretation Comments Urine Bacteria (test code = 78855-4) FEW NONE [facility] HospitalEpithelial cells detection in urine sediment by light [id number] 01:10:00* Test Item Value Reference Range Interpretation Comments Urine Epithelial Cells (test code = 37530-4) FEW NONE [facility] or plasma lipase measurement (enzymatic activity/volume)2019-11-04 01:10:00* Test Item Value Reference Range Interpretation Comments Lipase (test code = 3040-3) 37 8-78 [facility]CH[facility] 2 [id number] 15:59:00 [facility] [address] [address] Patient Name: LAURENCE HOGUE MR #: [id number] : 1955 Age/Sex: 64/F Req #: [id number] Adm Physician: Ordered by: COLIN WHITMORE MD Report #: [id number] Location: [facility] Room/Bed: Procedure: [id number] DX/CHEST 2 VIE WS Exam Date: 10/25/19 Exam Time: 1420 REPORT STATUS: Signed EXAMINATION: CHEST 2 V IEWS INDICATION: Ptosis COMPARISON: None FINDINGS: LINES/TUBES:None LUNGS:The lungs are well-inflated. No focal consolidation or pulmonary edema. PLEURA:No pleural effusion or pneumothorax. MEDIAS TINUM:The cardiomediastinal silhouette appears normal in size and shape. IBAN ITALIA/SOFT TISSUES:No acute osseous injury. ABDOMEN:No free air under the connie phragm. Surgical clips overlie the upper abdomen. IMPRESSION: No fo delvin pneumonia or pulmonary edema. Signed by: Ginny Delgado MD on 10/25/2019 3:5 9 PM Dictated By: GINNY DELGADO MD [id number] Transcribed By: SEAN on 10/25/19 5911 COPY TO: COLIN MCCORD MD
[2019-11-20 18:19] LABS: BASOPHILS # (AUTO) 0.1 (0.0-0.1); BASOPHILS % 0.7 % (0.0-1.0); EOSINOPHILS # (AUTO) 0.2 (0.0-0.4); EOSINOPHILS % 2.2 % (0.0-6.0); HEMATOCRIT 39.6 % (34.2-44.1); HEMOGLOBIN 12.9 g/dL (12.0-16.0); LYMPHOCYTES # (AUTO) 2.9 (1.0-3.2); LYMPHOCYTES % 35.6 % (18.0-39.1); MEAN CORPUSCULAR HEMOGLOBIN 27.9 pg (28-32); MEAN CORPUSCULAR HGB CONC 32.6 g/dL (31-35); MEAN CORPUSCULAR VOLUME 85.5 fL (81-99); MONOCYTES # (AUTO) 0.7 (0.2-0.8); MONOCYTES % 8.9 % (4.4-11.3); NEUTROPHILS # (AUTO) 4.3 (2.1-6.9); NEUTROPHILS % 52.2 % (38.7-80.0); PLATELET COUNT 397 x10e3/uL (140-360); RED BLOOD COUNT 4.63 x10e6/uL (3.6-5.1); RED CELL DISTRIBUTION WIDTH 15.8 % (11.7-14.4)
[2019-11-20] MEDS ORDERED: ONDANSETRON HCL INJ 2MG/ML 2ML 2 MG/ML VIAL ONE (18:23)
[2019-11-20] MEDS ORDERED: ONDANSETRON HCL INJ 2MG/ML 2ML 2 MG/ML VIAL IV ONE ×2 (18:30)
[2019-11-20 18:31] LABS: INR 1.02; PROTHROMBIN TIME 13.9 seconds (11.9-14.5)
[2019-11-20 18:34] LABS: PARTIAL THROMBOPLASTIN TIME 34.3 seconds (23.8-35.5)
[2019-11-20 18:43] LABS: ALANINE AMINOTRANSFERASE 10 IU/L (0-55); ALBUMIN 3.3 g/dL (3.5-5.0); ALBUMIN/GLOBULIN RATIO 0.8 (0.8-2.0); ALKALINE PHOSPHATASE 89 IU/L (40-150); ANION GAP 13.6 mmol/L (8-16); BLOOD UREA NITROGEN 9 mg/dL (7-26); BUN/CREATININE RATIO 13 (6-25); CALCIUM 9.2 mg/dL (8.4-10.2); CARBON DIOXIDE 24 mmol/L (22-29); CHLORIDE 105 mmol/L (98-107); CREATINE KINASE 61 IU/L (29-168); CREATININE, SERUM 0.69 mg/dL (0.57-1.11); EST GLOMERULAR FILTRATION RATE > 60 ML/MIN (60-); GLUCOSE 121 mg/dL (74-118); LIPASE 9 U/L (8-78); POTASSIUM 3.6 mmol/L (3.5-5.1); SODIUM 139 mmol/L (136-145)
[2019-11-20] MEDS ORDERED: PANTOPRAZOLE 40 MG 10ML VIAL IV ONE (19:00)
--- NOTE | 2019-11-20 19:19 | Emergency Department Note ---
History of Present Illnes History of Present Illness Chief Complaint: Abdominal Complaints History of Present Illness This is a 64 year old female n/v x 12 today. pt states taking tramadol for first time this am and vomiting ever since. pt states no pain in triage just n/v. pt moaning and loud expiratory. pt aaox4. ambulatory. pt states pain all over her body from arthritis. Historian: Patient Arrival Mode: [employer] Required: No Onset (how long ago): hour(s) Radiation: Reports non-radiation Severity: moderate Onset quality: sudden Timing of current episode: intermittent Progression: waxing and waning Chronicity: new Context: Denies recent illness Relieving factors: none Exacerbating factors: none Associated symptoms: Reports denies other symptoms Treatments prior to arrival: none Past Medical/Family History Physician Review I have reviewed the patient's past medical and family history. Any updates have been documented here. Past Medical History Recent Fever: No Clinical Suspicion of Infectio: No New/Unexplained Change in Ment: No Past Medical History: Hypertension, Hypothyroidism, DVT/PE Other Medical History: psoriatic arthritis severe morbidity obesity Past Surgical History: None Other Surgery: SPLENECTOMY RIGHT KNEE MENISCUS REPAIR Social History Smoking Cessation: Never Smoker Alcohol Use: Occasional Any Illegal Drug Use: No Family History Family history of heart diseas: No Other Any Pre-Existing Lines (PICC,: No Review of Systems Review of Systems Constitutional: Reports no symptoms EENTM: Reports no symptoms Cardiovascular: Reports no symptoms Respiratory: Reports no symptoms Gastrointestinal: Reports as per HPI Genitourinary: Reports no symptoms Musculoskeletal: Reports no symptoms Integumentary: Reports no symptoms Neurological: Reports no symptoms Psychological: Reports no symptoms Endocrine: Reports no symptoms Hematological/Lymphatic: Reports no symptoms Physical Exam Related Data Allergies: Coded Allergies: infliximab (Verified Allergy, Unknown, HIVES, 01/07/17) sulfamethoxazole (Verified Allergy, Unknown, TONGUE SWELLED, 01/07/17) trimethoprim (Verified Allergy, Unknown, TONGUE SWELLED, 01/07/17) Triage Vital Signs Vital Signs Date Time Temp Pulse Resp B/P (MAP) Pulse Ox O2 Delivery O2 Flow Rate FiO2 11/20/19 17:50 97.0 75 22 151/64 97 Room Air Vital signs reviewed: Yes Physical Exam CONSTITUTIONAL Constitutional: Present well-developed, Present well-nourished HENT HENT: Present normocephalic, Present atraumatic, Present oropharynx clear/moist, Present nose normal HENT L/R: Present left ext ear normal, Present right ext ear normal EYES Eyes: Reports PERRL, Reports conjunctivae normal NECK Neck: Present ROM normal PULMONARY Pulmonary: Present effort normal, Present breath sounds normal CARDIOVASCULAR Cardiovascular: Present regular rhythm, Present heart sounds normal, Present capillary refill normal, Present normal rate GASTROINTESTINAL Abdominal: Present soft, Present nontender, Present bowel sounds normal GENITOURINARY Genitourinary: Present exam deferred SKIN Skin: Present warm, Present dry MUSCULOSKELETAL Musculoskeletal: Present ROM normal NEUROLOGICAL Neurological: Present alert, Present oriented x 3, Present no gross motor or sensory deficits PSYCHOLOGICAL Psychological: Present mood/affect normal, Present judgement normal Results Laboratory Result Diagram: 11/20/19 1800 11/20/19 1800 Laboratory Laboratory Tests Test 11/20/19 18:00 White Blood Count 8.22 x10e3/uL (4.8-10.8) Red Blood Count 4.63 x10e6/uL (3.6-5.1) Hemoglobin 12.9 g/dL (12.0-16.0) Hematocrit 39.6 % (34.2-44.1) Mean Corpuscular Volume 85.5 fL (81-99) Mean Corpuscular Hemoglobin 27.9 pg (28-32) Mean Corpuscular Hemoglobin Concent 32.6 g/dL (31-35) Red Cell Distribution Width 15.8 % (11.7-14.4) Platelet Count 397 x10e3/uL (140-360) Neutrophils (%) (Auto) 52.2 % (38.7-80.0) Lymphocytes (%) (Auto) 35.6 % (18.0-39.1) Monocytes (%) (Auto) 8.9 % (4.4-11.3) Eosinophils (%) (Auto) 2.2 % (0.0-6.0) Basophils (%) (Auto) 0.7 % (0.0-1.0) Neutrophils # (Auto) 4.3 (2.1-6.9) Lymphocytes # (Auto) 2.9 (1.0-3.2) Monocytes # (Auto) 0.7 (0.2-0.8) Eosinophils # (Auto) 0.2 (0.0-0.4) Basophils # (Auto) 0.1 (0.0-0.1) Absolute Immature Granulocyte (auto 0.03 x10e3/uL (0-0.1) Prothrombin Time 13.9 seconds (11.9-14.5) Prothromb Time International Ratio 1.02 Activated Partial Thromboplast Time 34.3 seconds (23.8-35.5) Sodium Level 139 mmol/L (136-145) Potassium Level 3.6 mmol/L (3.5-5.1) Chloride Level 105 mmol/L (98-107) Carbon Dioxide Level 24 mmol/L (22-29) Anion Gap 13.6 mmol/L (8-16) Blood Urea Nitrogen 9 mg/dL (7-26) Creatinine 0.69 mg/dL (0.57-1.11) Estimat Glomerular Filtration Rate > 60 ML/MIN (60-) BUN/Creatinine Ratio 13 (6-25) Glucose Level 121 mg/dL (74-118) Calcium Level 9.2 mg/dL (8.4-10.2) Total Bilirubin 0.5 mg/dL (0.2-1.2) Aspartate Amino Transf (AST/SGOT) 13 IU/L (5-34) Alanine Aminotransferase (ALT/SGPT) 10 IU/L (0-55) Alkaline Phosphatase 89 IU/L (40-150) Creatine Kinase 61 IU/L (29-168) Creatine Kinase MB 1.30 ng/mL (0-5.0) Troponin I < 0.001 ng/mL (0-0.300) Total Protein 7.5 g/dL (6.5-8.1) Albumin 3.3 g/dL (3.5-5.0) Globulin 4.2 g/dL (2.3-3.5) Albumin/Globulin Ratio 0.8 (0.8-2.0) Lipase 9 U/L (8-78) Lab results reviewed: Yes Assessment & Plan Medical Decision Making MDM check cbc, chem, cardiacs, place iv and give IVF's and Zofran Reassessment Reassessment pt feels much better - DC Tramadol, will give Tyl#3, Zofran ODT, F/U PCP [facility] Friday Assessment & Plan Final Impression: (1) Vomiting (2) Medication side effect (3) Psoriatic arthritis Depart Disposition: HOME, SELF-CARE Last Vital Signs Date Time Temp Pulse Resp B/P (MAP) Pulse Ox O2 Delivery O2 Flow Rate FiO2 11/20/19 18:53 68 14 144/74 100 Room Air 11/20/19 17:50 97.0 Home Meds Reported Medications Duloxetine Hcl (CYMBALTA) 30 Mg Capsule.dr, 60 MG PO DAILY, #30 CAP 11/04/19 Gabapentin (GABAPENTIN) 300 Mg Capsule, 600 MG PO Q8H, #60 CAP 11/04/19 Tizanidine Hcl (TIZANIDINE HCL) 4 Mg Capsule, 4 MG PO HS 11/04/19 Folic Acid (FOLIC ACID) 0.8 Mg Tablet, 1 MG PO DAILY 11/04/19 Methotrexate Sodium (METHOTREXATE) 2.5 Mg Tablet, 20 MG PO WKLY, #30 TAB WEEKLY ON Sundays01/07/17 Levothyroxine Sodium (LEVOTHYROXINE SODIUM) 200 Mcg Tablet, 200 MCG PO DAILY@0600 01/07/17 Oxybutynin Chloride (OXYBUTYNIN CHLORIDE ER) 15 Mg Tab.er.24, 15 MG PO DAILY 01/07/17 Medications in the ED Ondansetron HCl 8 mg NOW ONCE IV ; Start 11/20/19 at 18:30; Stop 11/20/19 at 18:01; Status DC Pantoprazole Sodium 40 mg ONCE ONCE IV Last administered on 11/20/19at 18:37; Admin Dose 40 MG; Start 11/20/19 at 19:00; Stop 11/20/19 at 19:01; Status DC Ondansetron HCl 8 mg ONCE ONCE IV Last administered on 11/20/19at 18:18; Admin Dose 8 MG; Start 11/20/19 at 18:30; Stop 11/20/19 at 18:31; Status DC Sodium Chloride 1,000 ml @ 0 mls/hr Q0M STAT IV Last administered on 11/20/19at 18:15; Admin Dose 1,000 MLS/HR; Start 11/20/19 at 18:01; Stop 11/20/19 at 18:04; Status DC Ondansetron HCl 8 mg STK-MED ONCE .ROUTE ; Start 11/20/19 at 18:23; Stop 11/20/19 at 18:17; Status DC OLIVER VELAZCO MD Nov 20, 2019 19:19
[2019-11-20 19:24] VITALS: BP 134/73
== END 2019-11-20 19:41 | disposition home or self-care (01) ==
LOC: ER 17:55
DX: R11.2 Nausea with vomiting, unspecified (principal); T40.4X5A Adverse effect of other synthetic narcotics, initial encounter; L40.50 Arthropathic psoriasis, unspecified; I10 Essential (primary) hypertension; E03.9 Hypothyroidism, unspecified; Z86.718 Personal history of other venous thrombosis and embolism
CPT/HCPCS: 36415; 80053; 82550; 82553; 83690; 84484; 85025; 85610; 85730; 99284; J2405; J7030

== ENCOUNTER 2020-10-10 05:55 | Emergency (ER) | payer SELFPAY ==
[~2020-10-10] VITALS: Ht 165.1 cm; Wt 145.1 kg
[2020-10-10] MEDS ORDERED: ONDANSETRON HCL INJ 2MG/ML 2ML 2 MG/ML VIAL ONE (06:16)
[2020-10-10] MEDS ORDERED: SODIUM CHLORIDE 0.9% 1000ML 1,000 ML ONE (06:16)
[2020-10-10] MEDS ORDERED: MORPHINE SULFATE INJ 4 MG/ML INJ 1ML ONE (06:17)
[2020-10-10] MEDS ORDERED: MORPHINE SULFATE INJ 4 MG/ML INJ 1ML IV STA (06:18)
[2020-10-10] MEDS ORDERED: SODIUM CHLORIDE 0.9% 1000ML 1,000 ML IV ONE (06:30)
[2020-10-10] MEDS ORDERED: ONDANSETRON HCL INJ 2MG/ML 2ML 2 MG/ML VIAL IV STA (07:33)
[2020-10-10] MEDS ORDERED: ONDANSETRON HCL INJ 2MG/ML 2ML 2 MG/ML VIAL IV NR (08:00)
[2020-10-10 10:22] LABS: EOSINOPHILS % 1.1 % (0.0-6.0); HEMATOCRIT 40.6 % (34.2-44.1); HEMOGLOBIN 13.5 g/dL (12.0-16.0); LYMPHOCYTES % 28.6 % (18.0-39.1); MEAN CORPUSCULAR HEMOGLOBIN 30.3 pg (28-32); MEAN CORPUSCULAR HGB CONC 33.3 g/dL (31-35); MEAN CORPUSCULAR VOLUME 91.2 fL (81-99); MONOCYTES % 6.7 % (4.4-11.3); NEUTROPHILS % 62.7 % (38.7-80.0); PLATELET COUNT 306 x10e3/uL (140-360); RED BLOOD COUNT 4.45 x10e6/uL (3.6-5.1); RED CELL DISTRIBUTION WIDTH 15.4 % (11.7-14.4)
[2020-10-10 10:23] LABS: BASOPHILS # (AUTO) 0.1 (0.0-0.1); BASOPHILS % 0.5 % (0.0-1.0); CLARITY,URINE CLEAR (CLEAR); COLOR,URINE YELLOW (YELLOW); EOSINOPHILS # (AUTO) 0.1 (0.0-0.4); LYMPHOCYTES # (AUTO) 2.9 (1.0-3.2); MONOCYTES # (AUTO) 0.7 (0.2-0.8); NEUTROPHILS # (AUTO) 6.3 (2.1-6.9)
[2020-10-10 10:24] LABS: BACTERIA,URINE FEW /HPF; EPITHELIAL CELLS,URINE MODERATE /LPF; KETONES,URINE NEGATIVE (NEGATIVE); LEUKOCYTE ESTERASE ,URINE NEGATIVE (NEGATIVE); NITRITE,URINE NEGATIVE (NEGATIVE); PROTEIN,URINE DIPSTICK NEGATIVE (NEGATIVE); URINE UROBILINOGEN 1 mg/dL (0.2 - 1); WBC,URINE (MAN) 0-5 /HPF (0-5)
[2020-10-10 10:25] LABS: ALBUMIN 3.4 g/dL (3.5-5.0); ALBUMIN/GLOBULIN RATIO 0.9 (0.8-2.0); CALCIUM 8.5 mg/dL (8.4-10.2); CREATININE, SERUM 0.69 mg/dL (0.57-1.11)
== END 2020-10-10 10:33 | disposition home or self-care (01) ==
LOC: ER 10:32
DX: R10.11 Right upper quadrant pain (principal); R11.2 Nausea with vomiting, unspecified; K80.20 Calculus of gallbladder without cholecystitis without obstruction; R19.7 Diarrhea, unspecified; I10 Essential (primary) hypertension
CPT/HCPCS: 36415; 76705; 80053; 81001; 83690; 84484; 85025; 93005; 99284; C9113; J2270; J2405; J7030

== ENCOUNTER 2021-03-14 20:25 | Emergency (ER) | payer OTHER ==
[~2021-03-14] VITALS: Ht 165.1 cm; Wt 145.1 kg
[2021-03-14] MEDS ORDERED: ELIQUIS5 MG PO (20:40)
[2021-03-14] MEDS ORDERED: HYDROCODON-ACE1 EA11 PO (20:40)
[2021-03-14] MEDS ORDERED: ACETAMINOPHEN-1 EAC4 PO (20:55)
[2021-03-14] MEDS ORDERED: CEFDINIR300 MG PO (20:55)
[2021-03-14] MEDS ORDERED: IBUPROFEN IB200 MG PO (20:55)
[2021-03-14] MEDS ORDERED: ACETAMINOPHEN 325 MG TAB PO ONE (21:00)
[2021-03-14] MEDS ORDERED: CEFTRIAXONE 1 GM VIAL IM ONE (21:00)
[2021-03-14] MEDS ORDERED: IBUPROFEN 200 MG TAB PO ONE (21:00)
[2021-03-14] MEDS ORDERED: ACETAMINOPHEN 325 MG TAB ONE (21:03)
[2021-03-14] MEDS ORDERED: CEFTRIAXONE 1 GM VIAL ONE (21:03)
== END 2021-03-14 21:10 | disposition home or self-care (01) ==
LOC: FSED 20:46
DX: J02.9 Acute pharyngitis, unspecified (principal); B34.9 Viral infection, unspecified; I10 Essential (primary) hypertension; E03.9 Hypothyroidism, unspecified; L40.50 Arthropathic psoriasis, unspecified
CPT/HCPCS: 83518; 99282; J0696

== ENCOUNTER → 2021-06-12 | Outpatient (CLI) | payer OTHER ==
[~2021-06-12] MED LIST changes: +ACETAMINOPHEN-1 EAC4 PO; +CEFDINIR300 MG PO; +ELIQUIS5 MG PO; +HYDROCODON-ACE1 EA11 PO; +IBUPROFEN IB200 MG PO
== END ==
LOC: US 12:11
PROVIDERS: ATTEND Nurse Practitioner Adult Health
DX: R22.1 Localized swelling, mass and lump, neck (principal)
CPT/HCPCS: 76536

== ENCOUNTER → 2021-11-20 | Outpatient (CLI) | payer OTHER | LOC: US 10:44 | PROVIDERS: ATTEND Nurse Practitioner Adult Health | DX: R60.0 Localized edema (principal) | CPT/HCPCS: 76882 ==

== ENCOUNTER → 2022-07-05 | Outpatient (CLI) | payer OTHER ==
[~2022-07-05] MED LIST changes: +IOPAMIDOL 370 MG/ML 100 ML INFUS..BTL INJ ONE
[2022-07-05 14:43] LABS: CREATININE, SERUM 0.48 mg/dL (0.57-1.11)
== END ==
LOC: CT 13:34
PROVIDERS: ATTEND Nurse Practitioner Adult Health
DX: Z86.711 Personal history of pulmonary embolism (principal)
CPT/HCPCS: 36415; 71260; 82565; 84520; Q9967

== ENCOUNTER 2024-07-24 13:42 | Emergency (ER) | payer MEDICARE, OTHER ==
[~2024-07-24] VITALS: Ht 160 cm; Wt 115.4 kg
[~2024-07-24 13:42] MED LIST changes: +DICYCLOMINE HCL20 MG PO; -IOPAMIDOL 370 MG/ML 100 ML INFUS..BTL INJ ONE; +ONDANSETRON ODT4 MG SL
[2024-07-24 13:45] VITALS: TEMP 99.5
[2024-07-24] MEDS ORDERED: TYLENOL325 MG PO (14:18)
[2024-07-24] MEDS ORDERED: BENZONATATE200 MG PO (14:21)
[2024-07-24 14:25] VITALS: PULSE 81; RESP 19; O2SAT 97
== END 2024-07-24 14:25 | disposition home or self-care (01) ==
LOC: FSED 13:45
DX: R05.9 Cough, unspecified (principal); J02.9 Acute pharyngitis, unspecified; R53.81 Other malaise; I10 Essential (primary) hypertension; E03.9 Hypothyroidism, unspecified; L40.50 Arthropathic psoriasis, unspecified; Z86.718 Personal history of other venous thrombosis and embolism
CPT/HCPCS: 0223U; 83518; 87400; 99284

== ENCOUNTER 2024-12-23 21:54 | Emergency (ER) | payer MEDICARE ==
[~2024-12-23] VITALS: Ht 160 cm; Wt 115.2 kg
[~2024-12-23 21:54] MED LIST changes: +BENZONATATE200 MG PO; +TYLENOL325 MG PO
[2024-12-23 22:18] VITALS: TEMP 97.4
[2024-12-23] MEDS: KETOROLAC TROMETHAMINE 60 MG/2 ML VIAL IM STA (23:44)
[2024-12-24 00:30] VITALS: PULSE 66; RESP 19; O2SAT 100
[2024-12-24] MEDS ORDERED: KETOROLAC TROME10 MG PO (00:30)
[2024-12-24] MEDS ORDERED: ULTRAM 50MG50 MG PO (00:30)
[2024-12-24] MEDS ORDERED: ONDANSETRON ODT4 MG PO (00:32)
== END 2024-12-24 00:46 | disposition home or self-care (01) ==
LOC: ER 22:06
DX: M25.531 Pain in right wrist (principal); M25.562 Pain in left knee; W01.0XXA Fall on same level from slipping, tripping and stumbling without subsequent striking against object, initial encounter; Y93.01 Activity, walking, marching and hiking; Y92.89 Other specified places as the place of occurrence of the external cause; I10 Essential (primary) hypertension; E03.9 Hypothyroidism, unspecified; L40.50 Arthropathic psoriasis, unspecified; Z86.718 Personal history of other venous thrombosis and embolism
CPT/HCPCS: 73110; 73552; 73562; 73590; 99283; J1885